=== PATIENT | male | born 1950 | race Caucasian/White ===

== ENCOUNTER 2020-01-19 09:20 | Day surgery (SDC) | payer MEDICARE, BC ==
[2020-01-19] MEDS ORDERED: Midazolam 1 MG/ML 2 ML SDV ONE ×2 (09:22→11:32)
[2020-01-19] MEDS ORDERED: Propofol 200 MG/20 ML SDV ONE ×2 (09:23→11:32)
[2020-01-19] MEDS ORDERED: Lactated Ringers 1,000 ML IV SCH (09:30)
[2020-01-19] MEDS ORDERED: Sodium Chloride 0.9% 10 ML Syringe FLUSH PRN (09:30)
--- NOTE | 2020-01-19 11:28 | PCM.HPR ---
H & P Addendum review - H & P Addendum Review Date of Original H & P: 01/03/20 Date Reviewed: 01/19/20 Time Reviewed: 11:28 Patient was Examined: No Changes
--- NOTE | 2020-01-19 11:49 | PCM.OPNOTE ---
- General Post-Op/Procedure Note Date of Surgery/Procedure: 01/19/20 Operative Procedure(s): EGD with bx Findings: Small HH; Pre Op Diagnosis: HX Lucas's Post-Op Diagnosis: Same Anesthesia Technique: MAC Primary Surgeon: Aydin Kingston Anesthesia Provider: Mercedez Vaughn Pathology: Distal Esophagus EBL in mLs: 1 Complications: None Condition: Good
--- NOTE | 2020-01-19 13:05 | OR ---
Date of Procedure: 01/19/2020 PREOPERATIVE DIAGNOSIS: History of Lucas's esophagus. POSTOPERATIVE DIAGNOSIS: History of Lucas's esophagus. PROCEDURE: EGD with biopsy. ANESTHESIA: IV sedation. PROCEDURE IN DETAIL: Patient was brought to the procedure room, where he was placed on his left side and IV sedation administered. Oral bite block was placed and the upper endoscope advanced into the esophagus under direct vision without difficulty. Vocal cords were viewed and were normal. The scope was advanced to the second portion of the duodenum. Duodenum and pylorus are normal. Antrum and body of the stomach were normal. Retroflexion revealed a loose lower esophageal sphincter and a small 2-cm hiatal hernia. Distal esophagus is slightly irregular, but no obvious signs of Lucas's esophagus. I did take 4 random biopsies from each quadrant approximately 1 cm above the squamocolumnar junction. Air was removed from the stomach, and the scope withdrawn through the remaining esophagus, which appears normal. The patient tolerated the procedure well and returned to recovery in stable condition. The patient will be contacted with the pathology report when it returns. If no concerning features are present, he could wait 5 years until his next upper endoscopy for Lucas's. RAYNE FARRIS MD /[id number]
== END 2020-01-19 12:59 | disposition home or self-care (01) ==
LOC: LL.SDS 09:20
PROVIDERS: ATTEND Surgery
DX: K22.8 Other specified diseases of esophagus (principal); K44.9 Diaphragmatic hernia without obstruction or gangrene; E11.319 Type 2 diabetes mellitus with unspecified diabetic retinopathy without macular edema; E11.22 Type 2 diabetes mellitus with diabetic chronic kidney disease; I12.9 Hypertensive chronic kidney disease with stage 1 through stage 4 chronic kidney disease, or unspecified chronic kidney disease; N18.3 Chronic kidney disease, stage 3 (moderate); E78.00 Pure hypercholesterolemia, unspecified; F32.5 Major depressive disorder, single episode, in full remission; K21.9 Gastro-esophageal reflux disease without esophagitis; Z98.890 Other specified postprocedural states; Z79.82 Long term (current) use of aspirin; Z87.19 Personal history of other diseases of the digestive system; Z79.899 Other long term (current) drug therapy; Z79.84 Long term (current) use of oral hypoglycemic drugs
CPT/HCPCS: 43239; 82962; J2250; J2704; J7120; 00731

== ENCOUNTER 2020-07-16 04:57 | Inpatient (IN) | payer MEDICARE, BC ==
[2020-07-16] MEDS ORDERED: Acetaminophen 325 MG Tab PO ONE (05:44)
--- NOTE | 2020-07-16 05:44 | EDM.PDOC ---
ED HPI GENERAL MEDICAL PROBLEM - General Chief Complaint: General Stated Complaint: weakness Time Seen by Provider: 07/16/20 05:25 Source of Information: Reports: Patient, EMS, Old Records ([facility] chart/EMR). Denies: EMS Notes Reviewed (Not available at time of dictation) History Limitations: Reports: No Limitations - History of Present Illness INITIAL COMMENTS - FREE TEXT/NARRATIVE: The patient was brought to the emergency room via ambulance with youth worker accompaniment with no treatment in route. Patient complains of a 4-5-day history of polydipsia associated with a 3-day history of nonspecific generalized weakness and difficulty emptying his bladder. He did have some fever and chills yesterday evening with temperature not measured and Tylenol at an unknown dose at midnight. Otherwise he denies any gross hematuria, colic, UTI symptoms. The patient denies any chest pain/pressure, heart flutter, dizziness, orthostasis, orthopnea, diaphoresis, paresthesias, recent decreased exercise tolerance, or any other anginal-type symptoms. No recent history of abdominal pain, heartburn, nausea, diarrhea, melena, gross hematochezia, or any food into lerance, including fatty foods, etc.. The patient also denies any recent cough, wheezing, dyspnea, etc.. He denies any known exposure to infection and has been following the COVID-19 CDC guidelines. The patient has not been taking his home Accu-Cheks recently. He denies any specific pain or discomfort. Onset: Gradual, Unknown/Unsure Onset Date: 07/11/20 Duration: Getting Worse Location: Denies: Head, Face, Neck, Chest, Abdomen, Back Quality: Reports: Other (No pain) Improves with: Reports: None Worsens with: Reports: None Associated Symptoms: Reports: Fever/Chills, Weakness. Denies: Confusion, Chest Pain, Cough, Diaphoresis, Headaches, Loss of Appetite, Malaise, Nausea/Vomiting, Shortness of Breath, Syncope Treatments YAM CURER: Reports: Acetaminophen, Other (see below) Other Treatments YAM CURER: Took tylenol around 2400 tonight. - Related Data Allergies Allergy/AdvReac Type Severity Reaction Status Date / Time lisinopril Allergy Swollen Verified 07/16/20 07:03 Tongue Home Meds: Home Meds Aspirin [Adult Low Dose Aspirin EC] 81 mg PO DAILY 01/18/20 [History] Blood Sugar Diagnostic [Blood Glucose Test Strip] 1 each ASDIRECTED 01/18/20 [History] Blood-Glucose Meter [Blood Glucose Monitoring] 1 each ASDIRECTED 01/18/20 [History] Cinnamon Bark [Cinnamon] 500 mg PO BID 01/18/20 [History] FLUoxetine [PROzac] 20 mg PO DAILY 01/18/20 [History] L.acidoph,Paracasei, B.lactis [Probiotic] 1 each PO DAILY 01/18/20 [History] Lancets 1 each ASDIRECTED 01/18/20 [History] Lovastatin [Mevacor] 40 mg PO BEDTIME 01/18/20 [History] Omeprazole 20 mg PO DAILY 01/18/20 [History] metFORMIN [Glucophage] 500 mg PO BIDMEALS 01/18/20 [History] Cetirizine HCl [Zyrtec] 10 mg PO BEDTIME 07/16/20 [History] Glimepiride 2 mg PO BIDMEALS 07/16/20 [History] Losartan [Cozaar] 50 mg PO DAILY 07/16/20 [History] amLODIPine [Norvasc] 5 mg PO DAILY 07/16/20 [History] hydrOXYzine HCL [Atarax] 25 mg PO Q6H PRN 07/16/20 [History] Past Medical History HEENT History: Reports: Allergic Rhinitis, Cataract, Hard of Hearing, Impaired Vision, Otitis Media, Sinusitis, Other (See Below). Denies: Glaucoma, Macular Degeneration, Retinal Detachment Other HEENT History: Allergic rhinitis/sinusitis. Patient wears glasses and has a history of diabetic retinopathy. Mild to moderate bilateral presbycusis with no current therapy. Frequent otitis media as a child with no PE tubes. Cardiovascular History: Reports: Arrhythmia, High Cholesterol, Hypertension, Pacemaker, Other (See Below). Denies: Afib, Aneurysm, Blood Clots/VTE/DVT, CAD, Heart Failure, Heart Murmur, ME, PVD, Syncope Other Cardiovascular History: Third-degree AV block with distant pacemaker as below. Respiratory History: Reports: None, Intubation, Previous. Denies: Asthma, Bronchitis, Recurrent, COPD, Intubation, Difficult, PE, Pneumothorax, Sleep Apnea, TB Gastrointestinal History: Reports: None, GERD, Other (See Below). Denies: Celiac Disease, Cholelithiasis, Chronic Constipation, Chronic Diarrhea, Colon Polyp, Diverticulosis, Fecal Incontinence, Gastritis, GI Bleed, Hepatitis, Inflammatory Bowel Disease, Irritable Bowel Syndrome, Jaundice, Pancreatitis, PUD Other Gastrointestinal History: Barretts esophagus with low grade dysplasia Genitourinary History: Reports: None, BPH. Denies: Acute Renal Failure, Chronic Renal Insuffiency, Diabetic Nephropathy, Renal Calculus, Retention, Urinary, STD, Urinary Incontinence, UTI, Recurrent Musculoskeletal History: Reports: Arthritis, Back Pain, Chronic, Fracture, Neck Pain, Chronic, Osteoarthritis, Other (See Below). Denies: Amputation Other Musculoskeletal History: Diffuse degenerative disc disease. Right ankle fracture in the 1980s. Neurological History: Reports: None. Denies: Cerebral Aneurysms, Concussion, CVA, Headaches, Chronic, Head Trauma, Migraines, MS, Neuropathy, Diabetic, Neuropathy, Peripheral (Any), Parkinson's, Seizure, TIA (MS Parkinson's disease strokes), Vertigo ( dizziness) Psychiatric History: Reports: Addiction, Anxiety, Depression, Other (See Below). Denies: Abuse, Victim of, ADD, ADHD, Psych Hospitalization(s), PTSD, Suicide Attempt, Suicidal Ideation Other Psychiatric History: Patient denies previous addiction despite above record. Endocrine/Metabolic History: Reports: Diabetes, Type II. Denies: Diabetes, Type I, Diabetes Mellitus, Type 3c, Hypothyroidism, IDDM Hematologic History: Denies: Anemia, Blood Transfusion(s), Iron Deficiency Immunologic History: Reports: None. Denies: AIDS, HIV, SLE Oncologic (Cancer) History: Reports: Other (See Below). 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 Dermatologic History: Reports: Other (See Below). Denies: Eczema, Psoriasis Other Dermatologic History: Diabetic left foot ulcer with last debridement on 04/08/2004 - Infectious Disease History Infectious Disease History: Reports: None, Measles. Denies: C-Difficile, Chicken Pox, Helicobacter Pylori, Meningitis, Mononucleosis, MRSA, Mumps, Novel Coronavirus, Pertussis (Whooping Cough), Rheumatic Fever, Rubella, Scarlet Fever , Shingles, TB, VRE - Past Surgical History Head Surgeries/Procedures: Reports: None HEENT Surgical History: Reports: Cataract Surgery, Laser Surgery, Oral Surgery, Other (See Below). Denies: Adenoidectomy, Eye Surgery, Myringotomy w Tube(s), Naso-Sinus Surgery, Tonsillectomy Other HEENT Surgeries/Procedures: Bilateral cataract surgery. YAG treatment of the eyes secondary to diabetic retinopathy. Cardiovascular Surgical History: Reports: Pacer, Other (See Below). Denies: Varicose Other Cardiovascular Surgeries/Procedures: Pacemaker placement in about 2005. Respiratory Surgical History: Reports: None. Denies: Thoracentesis GI Surgical History: Reports: Colonoscopy, EGD, Other (See Below). Denies: Appendectomy, Cholecystectomy, Hernia, Abdominal, Hernia, Inguinal, Hernia Repair/Other, Polypectomy Other GI Surgeries/Procedures: EGD with biopsy on 01/19/2020. Colonoscopy in about 2011. Male Surgical History: Reports: None. Denies: Circumcision, TURP- Transurethral Resection of Prostate, Vasectomy Endocrine Surgical History: Reports: None. Denies: Thyroid Biopsy Neurological Surgical History: Reports: C-Spine, Other (See Below). Denies: Discectomy, Laminectomy, Lumbar Spine, Spinal Fusion, Vertebroplasty Other Neurological Surgeries/Procedures: Bone spur excision from C-spine in the 1980s. Musculoskeletal Surgical History: Denies: Arthroscopic Procedure, Carpal Tunnel, Ganglion Cyst, Joint Replacement, ORIF, Shoulder Surgery Oncologic Surgical History: Reports: None Dermatological Surgical History: Reports: Other (See Below) Other Dermatological Surgeries/Procedures: Excision of unknown type of cancer from his auricles bilaterally. Social & Family History - Family History HEENT: Reports: None. Denies: Glaucoma, Macular Degeneration, Retinal Detachment Cardiac: Reports: CAD, ME, Other (See Below). Denies: Afib, Aneurysm, Arrhythmia, Blood Clots/VTE/DVT, Heart Failure, Hypertension, Syncope Other Cardiac Family History: Father with fatal ME at age 64. Paternal aunt with fatal ME in her 70s. Respiratory: Reports: None. Denies: Asthma, COPD, PE, Sleep Apnea GI: Reports: None, Pancreatitis. Denies: Celiac Disease, Cholelithiasis, Colon Polyps, GERD, GI bleed, Inflammatory Bowel Disease, Irritable Bowel Syndrome, PUD : Reports: None. Denies: Renal Calculus, Renal Disease/Insufficiency OBGYN: Reports: None. Denies: Endometriosis, Recurrent Spontaneous Musculoskeletal: Reports: Arthritis, Osteoporosis, Other (See Below). Denies: Gout, RA, SLE Other Musculoskeletal Family History: Sister with arthritis. Neurological: Reports: None. Denies: Alzheimers Disease, CVA, Migraines, MS, Parkinson's, Seizure, TIA Psychiatric: Reports: None. Denies: Abuse, Victim of, ADD, ADHD, Anxiety, Depression, Psych Hospitalization(s), PTSD, Suicide Attempt Endocrine/Metabolic: Reports: None. Denies: Diabetes, Type I, Diabetes, type II, Diabetes Mellitus, Type 3c, Hypothyroidism Hematologic: Reports: None. Denies: Anemia, SLE Immunologic: Reports: None. Denies: AIDS, SLE Dermatologic: Reports: None. Denies: Eczema, Psoriasis Oncologic: Reports: Hodgkin's Lymphoma, Other (See Below). Denies: Lymphoma, Non-Hodgkin's Lymphoma, Prostate, Skin Other Oncologic Family History: Paternal uncle with fatal Hodgkin's disease. Brother with lung cancer with history of tobacco use. Brother with unknown type of abdominal cancer. - Tobacco Use Tobacco Use Status *Q: Never Tobacco User Tobacco Use Within Last Twelve Months: No Used Tobacco, but Quit: No Smoking Cessation Information Provided To Patient: No Second Hand Smoke Exposure: No Second Hand Smoke Education Provided: No - Caffeine Use Caffeine Use: Reports: Coffee (2 cups/day), Soda (2 sodas per week). Denies: Energy Drinks, Tea - Alcohol Use Alcohol Use History: Yes Days Per Week of Alcohol Use: 5 Number of Drinks Per Day: 2 Number of Drinks Per Day Comment: Usually beer. No previous DWIs, problems with alcohol abuse, etc. Total Drinks Per Week: 10 Alcohol Use in Last Twelve Months: Yes - Recreational Drug Use Recreational Drug Use: No Drug Use in Last 12 Months: No Recreational Drug Type: Denies: Amphetamines (Speed), Heroin, Inhalants (Glues, Solvents, Aerosols), Marijuana/Hashish, Methamphetamine, Morphine, Oxycodone - Living Situation & Occupation Living situation: Reports: (1979, 2 children), with Family () Occupation: Retired (Retired materials intern at age 64) ED ROS GENERAL - Review of Systems Review Of Systems: Comprehensive ROS is negative, except as noted in HPI. ED EXAM, GENERAL - Physical Exam Exam: See Below Exam Limited By: No Limitations General Appearance: Alert, WD/WN, No Apparent Distress Eye Exam: Bilateral Eye: EOMI, Normal Inspection (No nystagmus or vertigo. Patient wears glasses.), PERRL Ears: Normal External Exam, Normal Canal, Normal TMs, Hearing Loss (Mild to moderate bilateral presbycusis) Nose: Normal Inspection, Normal Mucosa, No Blood Throat/Mouth: Normal Inspection, Normal Lips, Normal Teeth (Multiple missing teeth with no acute caries), Normal Gums, Normal Oropharynx, Normal Voice, No Airway Compromise Head: Atraumatic, Normocephalic. No: Facial Swelling, Facial Tenderness, Sinus Tenderness Neck: Supple, Non-Tender, Full Range of Motion, Carotid Bruit (Mild bilateral carotid bruits). No: Lymphadenopathy (L), Lymphadenopathy (R), Thyromegaly Respiratory/Chest: No Respiratory Distress, Lungs Clear, Normal Breath Sounds, No Accessory Muscle Use, Chest Non-Tender. No: Pleural Rub, Retractions Cardiovascular: Normal Peripheral Pulses, Regular Rate, Rhythm, No Edema, No Gallop, No JVD, No Murmur, No Rub. No: Gallop/S3, Gallop/S4, Friction Rub Peripheral Pulses: 2+: Radial (L), Radial (R), Dorsalis Pedis (L), Dorsalis Pedis (R) GI/Abdominal: Normal Bowel Sounds, Soft, Non-Tender, No Organomegaly, No Distention, No Abnormal Bruit, No Mass. No: Guarding (Male) Exam: Deferred Rectal (Males) Exam: Normal Rectal Tone, BPH (Mild), Heme - Stool, Hemorrhoids. No: Black Stool, Bloody Stool, Fecal Impaction, Prostate Nodule (Grade 2 internal/external), Tenderness (No ductal space tenderness) Back Exam: Normal Inspection, Full Range of Motion. No: CVA Tenderness (L), CVA Tenderness (R), Muscle Spasm Extremities: Normal Inspection, Normal Range of Motion, Non-Tender, No Pedal Edema, Normal Capillary Refill. No: Nirali's Sign Neurological: Alert, Oriented, CN II-XII Intact, Normal Cognition, Normal Gait, Normal Reflexes (Negative Babinski's), No Motor/Sensory Deficits Psychiatric: Normal Affect, Normal Mood Skin Exam: Warm, Dry, Intact, Normal Color, No Rash. No: Diaphoretic Lymphatic: No Adenopathy Course - Vital Signs Last Recorded V/S: Last Vital Signs Temp 37.8 C 07/16/20 05:15 Pulse 77 07/16/20 06:55 Resp 18 07/16/20 06:55 BP 130/56 L 07/16/20 06:55 Pulse Ox 98 07/16/20 06:55 Vital Signs - 24 hr 07/16/20 07/16/20 07/16/20 05:03 05:15 05:45 Temperature [ 37.7 C 37.8 C Temporal] Pulse, 90 90 88 Peripheral [ Pulse Oximetry] Respiratory 16 18 18 Rate Blood Pressure 142/58 H [Left Upper Arm ] Blood Pressure 147/66 H 162/51 H [Right Upper Arm] O2 Sat by Pulse 99 99 99 Oximetry 07/16/20 07/16/20 07/16/20 06:10 06:25 06:40 Temperature [ Temporal] Pulse, 82 86 83 Peripheral [ Pulse Oximetry] Respiratory 18 16 16 Rate Blood Pressure 116/96 H 139/65 138/57 L [Left Upper Arm ] Blood Pressure [Right Upper Arm] O2 Sat by Pulse 99 99 98 Oximetry 07/16/20 07/16/20 07/16/20 06:55 07:40 08:10 Temperature [ 36.8 C Temporal] Pulse, 77 78 79 Peripheral [ Pulse Oximetry] Respiratory 18 20 18 Rate Blood Pressure 130/56 L 137/62 132/56 L [Left Upper Arm ] Blood Pressure [Right Upper Arm] O2 Sat by Pulse 98 99 100 Oximetry - Orders/Labs/Meds Orders: Active Orders 24 hr Category Date Time Status Cardiac Monitoring [RC] . DIRECTED Care 07/16/20 06:03 Active Cardiac Monitoring [RC] CONTINUOUS Care 07/16/20 05:44 Active Communication Order [RC] ROUTINE Care 07/16/20 05:44 Active Oxygen Therapy, ED [RC] PRN Care 07/16/20 05:44 Active Peripheral IV Care [RC] . DIRECTED Care 07/16/20 05:45 Active Pulse Oximetry [RC] CONTINUOUS Care 07/16/20 05:44 Active Up With Assistance [RC] ASDIRECTED Care 07/16/20 05:44 Active Nothing Per Oral Diet [DIET] Diet 07/16/20 Breakfast Active Chest 1V Frontal [CR] Stat Exams 07/16/20 05:44 Taken Chest PE [Ang Chest] [CT] Stat Exams 07/16/20 06:29 Taken CORONAVIRUS COVID-19 RACHEAL [MOLEC] Stat Lab 07/16/20 05:30 Received CULTURE BLOOD [BC] Stat Lab 07/16/20 05:52 Received CULTURE BLOOD [BC] Stat Lab 07/16/20 06:00 Received CULTURE URINE [RM] Routine Lab 07/16/20 05:44 Ordered Sodium Chloride 0.9% [Saline Flush] Med 07/16/20 05:44 Active 10 ml FLUSH ASDIRECTED PRN Blood Culture x2 Reflex Set [OM.PC] Stat Oth 07/16/20 05:44 Ordered Isolation [COMM] Routine Oth 07/16/20 05:45 Active Obtain Past Medical Record [OM.PC] Stat Oth 07/16/20 05:44 Active Peripheral IV Insertion Adult [OM.PC] Stat Oth 07/16/20 05:44 Ordered Resuscitation Status Routine Resus Stat 07/16/20 05:44 Ordered Medication Orders Sodium Chloride (Saline Flush) 10 ml FLUSH ASDIRECTED PRN PRN Reason: Keep Vein Open Last Admin: 07/16/20 08:16 Dose: 10 ml Documented by: LIEN Labs: Laboratory Tests 07/16/20 07/16/20 07/16/20 Range/Units 05:52 05:52 05:52 WBC 11.3 H (4.0-10.2) K/uL RBC 2.80 L (4.33-5.41) M/uL Hgb 8.3 L (13.1-16.8) g/dL Hct 24.4 L* (39.0-49.0) % MCV 87.1 (84.0-98.0) fL MCH 29.6 (28.2-33.3) pg MCHC 34.0 (31.7-36.0) g/dL RDW 13.1 (11.2-14.1) % Plt Count 317 (150-350) K/uL Neut % (Auto) 91.9 H (45.0-80.0) % Lymph % (Auto) 2.7 L (10.0-50.0) % [place] % (Auto) 5.2 (2.0-14.0) % Eos % (Auto) 0.0 (0.0-5.0) % Baso % (Auto) 0.2 (0.0-2.0) % Neut # (Auto) 10.36 H (1.40-7.00) K/uL Lymph # (Auto) 0.30 L (0.50-3.50) K/uL [place] # (Auto) 0.58 (0.00-1.00) K/uL Eos # (Auto) 0.00 (0.00-0.50) K/uL Baso # (Auto) 0.02 (0.00-0.20) K/uL PT (9.5-12.0) SEC INR APTT (24.5-32.8) SEC D-Dimer, Quantitative 2020 H (0-400) ng/mL Sodium 124 L* (136-145) mmol/L Potassium 4.1 (3.5-5.1) mmol/L Chloride 88 L (98-107) mmol/L Carbon Dioxide 21.0 (21.0-32.0) mmol/L BUN 21 H (7-18) mg/dL Creatinine 1.51 H (0.51-1.17) mg/dL Est Cr Clr Drug Dosing 45.66 mL/min Estimated GFR (MDRD) 46 mL/min Glucose 358 H (74-106) mg/dL Lactic Acid (0.4-2.0) mmol/L Calcium 8.3 L (8.5-10.1) mg/dL Magnesium 1.2 L (1.8-2.4) mg/dL Total Bilirubin 0.8 (0.2-1.0) mg/dL AST 20 (15-37) U/L ALT 28 (12-78) U/L Alkaline Phosphatase 75 (46-116) IU/L Total Protein 6.9 (6.4-8.2) g/dL Albumin 2.5 L (3.4-5.0) g/dL Specimen Type Urine Color Urine Appearance Urine pH (5.0-9.0) Ur Specific [place] (1.005-1.030) Urine Protein (NEGATIVE) mg/dL Urine Glucose (UA) (NEGATIVE) mg/dL Urine Ketones (NEGATIVE) mg/dL Urine Occult Blood (NEGATIVE) Urine Nitrite (NEGATIVE) Urine Bilirubin (NEGATIVE) Urine Urobilinogen (0.2-1.0) E.U./dL Ur Leukocyte Esterase (NEGATIVE) Urine RBC /HPF Urine WBC /HPF Urine Bacteria (NONE TO FEW) /HPF 07/16/20 07/16/20 07/16/20 Range/Units 05:52 05:56 07:45 WBC (4.0-10.2) K/uL RBC (4.33-5.41) M/uL Hgb (13.1-16.8) g/dL Hct (39.0-49.0) % MCV (84.0-98.0) fL MCH (28.2-33.3) pg MCHC (31.7-36.0) g/dL RDW (11.2-14.1) % Plt Count (150-350) K/uL Neut % (Auto) (45.0-80.0) % Lymph % (Auto) (10.0-50.0) % [place] % (Auto) (2.0-14.0) % Eos % (Auto) (0.0-5.0) % Baso % (Auto) (0.0-2.0) % Neut # (Auto) (1.40-7.00) K/uL Lymph # (Auto) (0.50-3.50) K/uL [place] # (Auto) (0.00-1.00) K/uL Eos # (Auto) (0.00-0.50) K/uL Baso # (Auto) (0.00-0.20) K/uL PT 13.5 H (9.5-12.0) SEC INR 1.4 APTT 36.8 H (24.5-32.8) SEC D-Dimer, Quantitative (0-400) ng/mL Sodium (136-145) mmol/L Potassium (3.5-5.1) mmol/L Chloride (98-107) mmol/L Carbon Dioxide (21.0-32.0) mmol/L BUN (7-18) mg/dL Creatinine (0.51-1.17) mg/dL Est Cr Clr Drug Dosing mL/min Estimated GFR (MDRD) mL/min Glucose (74-106) mg/dL Lactic Acid 1.4 (0.4-2.0) mmol/L Calcium (8.5-10.1) mg/dL Magnesium (1.8-2.4) mg/dL Total Bilirubin (0.2-1.0) mg/dL AST (15-37) U/L ALT (12-78) U/L Alkaline Phosphatase (46-116) IU/L Total Protein (6.4-8.2) g/dL Albumin (3.4-5.0) g/dL Specimen Type Urincc Urine Color Yellow Urine Appearance Cloudy Urine pH 5.5 (5.0-9.0) Ur Specific [place] 1.015 (1.005-1.030) Urine Protein 100 H (NEGATIVE) mg/dL Urine Glucose (UA) 250 H (NEGATIVE) mg/dL Urine Ketones Negative (NEGATIVE) mg/dL Urine Occult Blood Moderate H (NEGATIVE) Urine Nitrite Negative (NEGATIVE) Urine Bilirubin Negative (NEGATIVE) Urine Urobilinogen 0.2 (0.2-1.0) E.U./dL Ur Leukocyte Esterase Moderate H (NEGATIVE) Urine RBC 0-5 /HPF Urine WBC 50-75 H /HPF Urine Bacteria Many H (NONE TO FEW) /HPF Blood cultures x2 were collected Urine specimen set up for culture and sensitivity COVID-19 rapid test collected with results pending Microbiology 07/16/20 06:38 Stool Occult Blood (TALIA) - Final Stool / Feces NEGATIVE OCCULT BLOOD REFERENCE RANGE: NEGATIVE 07/16/20 05:30 Influenza Type A Antigen Screen - Final Nasal, Unspecified NEGATIVE INFLUENZA A VIRUS AG REFERENCE RANGE: NEGATIVE Influenza Type B Antigen Screen - Final NEGATIVE INFLUENZA B VIRUS AG REFERENCE RANGE: NEGATIVE Meds: Medications Generic Name Dose Route Start Last Admin Trade Name Freq PRN Reason Stop Dose Admin Sodium Chloride 10 ml 07/16/20 05:44 07/16/20 08:16 Saline Flush FLUSH 10 ml ASDIRECTED PRN Administration Keep Vein Open Discontinued Medications Generic Name Dose Route Start Last Admin Trade Name Freq PRN Reason Stop Dose Admin Acetaminophen 650 mg 07/16/20 05:44 07/16/20 06:07 Tylenol PO 07/16/20 05:45 650 mg ONETIME ONE Administration Famotidine 40 mg 07/16/20 06:14 07/16/20 06:23 Pepcid IVPUSH 07/16/20 06:15 40 mg ONETIME ONE Administration Lactated Ringer's 1,000 mls @ 999 mls/hr 07/16/20 06:03 07/16/20 06:04 Ringers, Lactated IV 07/16/20 07:03 999 mls/hr .BOLUS ONE Administration Ceftriaxone Sodium 1 gm/ 100 mls @ 200 mls/hr 07/16/20 06:59 07/16/20 07:10 Sodium Chloride IV 07/16/20 07:28 200 mls/hr ONETIME ONE Administration Iopamidol Confirm 07/16/20 06:56 Isovue-370 (76%) Administered 07/16/20 06:57 Dose 100 ml .ROUTE .STK-MED ONE Pantoprazole Sodium 40 mg 07/16/20 06:14 07/16/20 06:23 Protonix Iv IVPUSH 07/16/20 06:15 40 mg ONETIME ONE Administration - Radiology Interpretation Free Text/Narrative:: bus monitor shows almost complete paced rhythm with average heart rate in the 80s to 90s with occasional heart rate in the 70s. Very occasional independent rhythm. Chest x-ray, portable, showed evidence of a pacemaker in the left upper chest region with mild prominence of the proximal aortic arch and mild aortic valve calcification with no evidence of cardiomegaly, CHF, pulmonary infiltrates, COPD, pneumothorax, etc. Telephone consultation at 7:52 AM this morning with the radiology department at [facility]. Preliminary verbal report of CTA of the chest using PE protocol was negative for PE, however incidental finding of probable right- sided pyelonephritis and additional subacute L1 vertebral body compression fracture. Subsequent written report confirmed the above findings. 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 use Diabetes mellitus complication status: with ophthalmic complications Diabetes mellitus complication detail: with diabetic retinopathy Diabetic retinopathy severity: with unspecified retinopathy severity Diabetes mellitus macular edema: without macular edema Laterality: unspecified laterality Qualified Code(s): E11.319 - Type 2 diabetes mellitus with unspecified diabetic retinopathy without macular edema Hypertension Qualifiers: Hypertension type: essential hypertension Qualified Code(s): I10 - Essential (primary) hypertension Hyperlipidemia Qualifiers: Hyperlipidemia type: unspecified Qualified Code(s): E78.5 - Hyperlipidemia, unspecified - Discharge Information *PRESCRIPTION DRUG MONITORING PROGRAM REVIEWED*: Not Applicable *COPY OF PRESCRIPTION DRUG MONITORING REPORT IN PATIENT KARAN: Not Applicable Referrals: Melody Mack PA-C [Primary Care Provider] - Forms: ED Department Discharge Care Plan Goals: See plan Sepsis Event Note (ED) - Evaluation Sepsis Screening Result: No Definite Risk - Focused Exam Vital Signs: Vital Signs Temp Pulse Resp BP BP Pulse Ox 07/16/20 06:55 77 18 130/56 L 98 07/16/20 06:40 83 16 138/57 L 98 07/16/20 06:25 86 16 139/65 99 07/16/20 06:10 82 18 116/96 H 99 07/16/20 05:45 88 18 162/51 H 99 07/16/20 05:15 37.8 C 90 18 142/58 H 99 07/16/20 05:03 37.7 C 90 16 147/66 H 99 - Problem List & Annotations (1) Pyelonephritis SNOMED Code(s): 17359457 Code(s): N12 - TUBULO-INTERSTITIAL NEPHRITIS, NOT SPCF ACUTE OR CHRONIC Status: Acute Priority: High Onset Date: 07/16/20 Annotation/Comment:: Right-sided pyelonephritis. IV Rocephin given in the emergency room. Urine specimen has been set up for culture and sensitivity. Note history of mild BPH, including by exam today. Despite history as above patient did urinate prior to arrival to the emergency room with initial bladder ultrasound showing 185 cc of urine with subsequent bladder ultrasound after urination in the emergency showing only 10 cc. Therefore no significant urinary retention. Note decompensated AODM secondary to this infection with high fever, etc.. Mild leukocytosis with normal lactic acid level and no clinical evidence of sepsis. Continue IV Rocephin therapy after admission. (2) D-dimer, elevated SNOMED Code(s): 509794708 Code(s): R79.89 - OTHER SPECIFIED ABNORMAL FINDINGS OF BLOOD CHEMISTRY Status: Acute Priority: High Onset Date: 07/16/20 Annotation/Comment:: Note CTA of the chest results and significant anemia as above. Venous Doppler studies of the lower extremities to be conducted later today. No clinical evidence of DVT or PE. Delay Lovenox therapy for now secondary to moderate anemia as above. D-dimer elevation possibly secondary to current pyelonephritis. (3) Anemia SNOMED Code(s): 187624969 Code(s): D64.9 - ANEMIA, UNSPECIFIED Status: Acute Priority: High Onset Date: 07/16/20 Annotation/Comment:: Moderate anemia of unknown etiology with diabetic nephropathy a possible component. Iron studies, vitamin B12 level, etc. to be conducted with in the a.m. 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 High-dose IV Pepcid and IV Protonix were given as GI prophylaxis. Consider repeat EGD and colonoscopy depending on his clinical course. Note negative Hemoccult in the emergency room. Qualifiers: Anemia type: unspecified type Qualified Code(s): D64.9 - Anemia, unspecified (4) Diabetes mellitus SNOMED Code(s): 33390846 Code(s): E11.9 - TYPE 2 DIABETES MELLITUS WITHOUT COMPLICATIONS Status: Chronic Priority: Medium Annotation/Comment:: Note significantly elevated Accu-Chek by the youth worker of 417 mg percent prior to arrival. The patient has not been taking his Accu-Cheks at home. No previous history of diabetic retinopathy. 1 L lactated Ringer's given in the emergency room. Initiate Humalog sliding scale with possible beginning IDDM. Glycosylated hemoglobin and lipid panel in the a.m. Qualifiers: Diabetes mellitus type: type 2 Diabetes mellitus intermodal truck driver insulin use: without residential use Diabetes mellitus complication status: with ophthalmic complications Diabetes mellitus complication detail: with diabetic retinopathy Diabetic retinopathy severity: with unspecified retinopathy severity Diabetes mellitus macular edema: without macular edema Laterality: unspecified laterality Qualified Code(s): E11.319 - Type 2 diabetes mellitus with unspecified diabetic retinopathy without macular edema (5) Hyponatremia SNOMED Code(s): 60527432 Code(s): E87.1 - HYPO-OSMOLALITY AND HYPONATREMIA Status: Acute Priority: High Onset Date: 07/16/20 Annotation/Comment:: Unknown etiology. 3% sodium chloride infusion x1 with resumption of IV fluids thereafter. No evidence of CHF, etc. (6) Weakness SNOMED Code(s): 07567919 Code(s): R53.1 - WEAKNESS Status: Acute Priority: High Onset Date: ~07/15/20 Annotation/Comment:: Nonspecific generalized weakness possibly secondary to his current infection. No gross neurological deficits. Observe for now. Strict fall precautions. (7) Hyperlipidemia SNOMED Code(s): 51880130 Code(s): E78.5 - HYPERLIPIDEMIA, UNSPECIFIED Status: Chronic Priority: Medium Annotation/Comment:: Currently under therapy. Lipid panel in the a.m. Qualifiers: Hyperlipidemia type: unspecified Qualified Code(s): E78.5 - Hyperlipidemia, unspecified (8) Hypertension SNOMED Code(s): 68499996 Code(s): I10 - ESSENTIAL (PRIMARY) HYPERTENSION Status: Chronic Priority: Medium Annotation/Comment:: Blood pressures under good control in the emergency room. Qualifiers: Hypertension type: essential hypertension Qualified Code(s): I10 - Essential (primary) hypertension (9) Hypoalbuminemia SNOMED Code(s): 293002821 Code(s): E88.09 - OTH DISORDERS OF PLASMA-PROTEIN METABOLISM, NEC Status: Acute Priority: Medium Onset Date: 07/16/20 Annotation/Comment:: Observe for now. Consider high-protein Glucerna supplements. (10) Hypocalcemia SNOMED Code(s): 4411818 Code(s): E83.51 - HYPOCALCEMIA Status: Acute Priority: Medium Onset Date: 07/16/20 Annotation/Comment:: Observe for now (11) Hypomagnesemia SNOMED Code(s): 387961407 Code(s): E83.42 - HYPOMAGNESEMIA Status: Acute Priority: Medium Annotation/Comment:: Initiate magnesium sulfate IV therapy on admission with 4 g IV at that time and subsequent oral magnesium oxide therapy. (12) Compression fracture of L1 vertebra SNOMED Code(s): 453758995 Code(s): S32.010A - WEDGE COMPRESSION FRACTURE OF FIRST LUMBAR VERTEBRA, INIT Status: Acute Priority: Medium Annotation/Comment:: Incidental finding as above. No history of recent fall, injury, or current complaints. Likely subacute in nature based on CTA report as above. Observe for now. Qualifiers: Encounter type: initial encounter Qualified Code(s): S32.010A - Wedge compression fracture of first lumbar vertebra, initial encounter for closed fracture (13) Diabetic nephropathy Status: Acute Priority: Medium Onset Date: 07/16/20 Annotation/Comment:: Newly diagnosed. Continue to observe renal function closely. Patient is already on an angiotensin II receptor rosa maria. Qualifiers: Diabetes mellitus type: type 2 Qualified Code(s): E11.21 - Type 2 diabetes mellitus with diabetic nephropathy (14) Osteoarthritis SNOMED Code(s): 653217719 Code(s): M19.90 - UNSPECIFIED OSTEOARTHRITIS, UNSPECIFIED SITE Status: Chronic Priority: Medium Annotation/Comment:: Otherwise stable by history. Qualifiers: Osteoarthritis location: multiple joints Osteoarthritis type: primary Qualified Code(s): M89.49 - Other hypertrophic osteoarthropathy, multiple sites - Problem List Review Problem List Initiated/Reviewed/Updated: Yes - My Orders Last 24 Hours: My Active Orders 07/16/20 05:30 CORONAVIRUS COVID-19 RACHEAL [MOLEC] Stat 07/16/20 05:44 Cardiac Monitoring [RC] CONTINUOUS Communication Order [RC] ROUTINE Oxygen Therapy, ED [RC] PRN Pulse Oximetry [RC] CONTINUOUS Up With Assistance [RC] ASDIRECTED Chest 1V Frontal [CR] Stat CULTURE URINE [RM] Routine Sodium Chloride 0.9% [Saline Flush] 10 ml FLUSH ASDIRECTED PRN Blood Culture x2 Reflex Set [OM.PC] Stat Obtain Past Medical Record [OM.PC] Stat Peripheral IV Insertion Adult [OM.PC] Stat Resuscitation Status Routine 07/16/20 05:45 Peripheral IV Care [RC] . DIRECTED Isolation [COMM] Routine 07/16/20 05:52 CULTURE BLOOD [BC] Stat 07/16/20 06:00 CULTURE BLOOD [BC] Stat 07/16/20 06:03 Cardiac Monitoring [RC] . DIRECTED 07/16/20 06:29 Chest PE [Ang Chest] [CT] Stat 07/16/20 Breakfast Nothing Per Oral Diet [DIET] - Assessment/Plan Admission H&P: Please use this note as an admission H&P Last 24 Hours: My Active Orders 07/16/20 05:30 CORONAVIRUS COVID-19 RACHEAL [MOLEC] Stat 07/16/20 05:44 Cardiac Monitoring [RC] CONTINUOUS Communication Order [RC] ROUTINE Oxygen Therapy, ED [RC] PRN Pulse Oximetry [RC] CONTINUOUS Up With Assistance [RC] ASDIRECTED Chest 1V Frontal [CR] Stat CULTURE URINE [RM] Routine Sodium Chloride 0.9% [Saline Flush] 10 ml FLUSH ASDIRECTED PRN Blood Culture x2 Reflex Set [OM.PC] Stat Obtain Past Medical Record [OM.PC] Stat Peripheral IV Insertion Adult [OM.PC] Stat Resuscitation Status Routine 07/16/20 05:45 Peripheral IV Care [RC] . DIRECTED Isolation [COMM] Routine 07/16/20 05:52 CULTURE BLOOD [BC] Stat 07/16/20 06:00 CULTURE BLOOD [BC] Stat 07/16/20 06:03 Cardiac Monitoring [RC] . DIRECTED 07/16/20 06:29 Chest PE [Ang Chest] [CT] Stat 07/16/20 Breakfast Nothing Per Oral Diet [DIET] Assessment:: As above Plan: As above. Extensive precautions were given to the patient, who is in agreement with the treatment plan. The patient will require about 3-4 days of inpatient/acute care secondary to multiple health problems as above. Jaxon hernandez physician assumes care in the a.m.
[2020-07-16] MEDS ORDERED: Lactated Ringers 1,000 ML IV ONE (06:03)
[2020-07-16] MEDS ORDERED: Famotidine 20 MG/2 ML SDV IVPUSH ONE (06:14)
[2020-07-16] MEDS ORDERED: Pantoprazole 40 MG Vial IVPUSH ONE (06:14)
[2020-07-16 06:43] LABS: PTT,PARTIAL THROMBOPLSTIN TIME 36.8 SEC (24.5-32.8)
[2020-07-16] MEDS ORDERED: Iopamidol 755 Mg/ML 100 ML Bottle IVPUSH STA (06:54)
[2020-07-16] MEDS ORDERED: Iopamidol 755 Mg/ML 100 ML Bottle ONE (06:56)
[2020-07-16] MEDS ORDERED: cefTRIAXone 1 GM in Sodium Chloride 0.9% 100 ML IV ONE (06:59)
[2020-07-16] MEDS: Sodium Chloride 0.9% 10 ML Syringe FLUSH PRN ×2 (08:16→21:25)
[2020-07-16] MEDS ORDERED: Glucagon,Human Recombinant 1 MG Vial IM PRN ×2 (10:11→12:19)
[2020-07-16] MEDS ORDERED: 50% Dextrose in Water 50 ML Syringe IV PRN ×2 (10:11→12:19)
[2020-07-16] MEDS ORDERED: Magnesium Sulfate/Water 4 GM in Premix Bag 1 BAG IV ONE (10:15)
[2020-07-16] MEDS ORDERED: Sodium Chloride 3% 500 ML IV SCH (10:15)
[2020-07-16] MEDS ORDERED: Acetaminophen 325 MG Tab PO PRN (11:00)
[2020-07-16] MEDS ORDERED: Ondansetron 4 MG/2 ML SDV IVPUSH PRN (11:00)
[2020-07-16] MEDS ORDERED: hydrOXYzine HCl 25 MG Tab PO PRN (11:00)
[2020-07-16] MEDS: Insulin Lispro 100 Units/ML 3 ML Vial SUBCUT SCH ×3 (12:41→20:29)
[2020-07-16] MEDS ORDERED: Insulin Lispro 100 Units/ML 3 ML Vial SUBCUT SCH (17:30)
[2020-07-16] MEDS: Glimepiride 2 MG Tab PO SCH (17:52)
[2020-07-16] MEDS ORDERED: Temazepam 15 MG Cap PO PRN (20:00)
[2020-07-16] MEDS: atorvaSTATin 10 MG Tab PO SCH (20:23)
[2020-07-16] MEDS: Cetirizine 10 MG Tab PO SCH (20:23)
[2020-07-16] MEDS: Sodium Chloride 0.9% 10 ML Syringe FLUSH SCH (20:24)
[2020-07-16] MEDS: cefTRIAXone 1 GM in Sodium Chloride 0.9% 100 ML IV SCH (20:24)
[2020-07-16] MEDS: Pantoprazole 40 MG Vial IVPUSH SCH (20:24)
[2020-07-17] MEDS: cefTRIAXone 1 GM in Sodium Chloride 0.9% 100 ML IV SCH ×2 (08:44→20:07)
[2020-07-17] MEDS: Pantoprazole 40 MG Vial IVPUSH SCH ×2 (08:44→20:07)
[2020-07-17] MEDS: Famotidine 20 MG/2 ML SDV IVPUSH SCH ×2 (08:45→20:26)
[2020-07-17] MEDS: Sodium Chloride 0.9% 10 ML Syringe FLUSH SCH ×2 (08:48→20:07)
[2020-07-17] MEDS: Sodium Chloride 0.9% 10 ML Syringe FLUSH PRN (08:48)
[2020-07-17] MEDS: FLUoxetine 20 MG Cap PO SCH (08:49)
[2020-07-17] MEDS: Magnesium Oxide 400 MG Tab PO SCH ×2 (08:49→17:40)
[2020-07-17] MEDS: Lactobacillus Rhamnosus GG (Probiotic) Cap PO SCH (08:49)
[2020-07-17] MEDS: amLODIPine 5 MG Tab PO SCH (08:49)
[2020-07-17] MEDS: Aspirin 81 MG Tab.EC PO SCH (08:49)
[2020-07-17] MEDS: Glimepiride 2 MG Tab PO SCH ×2 (08:49→17:40)
[2020-07-17] MEDS: Losartan 50 MG Tab PO SCH (08:50)
[2020-07-17] MEDS: Insulin Lispro 100 Units/ML 3 ML Vial SUBCUT SCH ×4 (08:50→20:11)
--- NOTE | 2020-07-17 17:59 | PCM.PN ---
- General Info Date of Service: 07/17/20 Admission Dx/Problem (Free Text): Patient admitted for treatment of pyelonephritis Subjective Update: Patient reports that he feels much improved today. More energy. Able to ambulate. Good appetite Functional Status: Reports: Pain Controlled, Tolerating Diet, Ambulating, Urinating. Denies: New Symptoms - Review of Systems General: Reports: Weakness (improved), Fatigue (improved), Appetite (improved). Denies: Fever, Malaise, Chills HEENT: Reports: No Symptoms Pulmonary: Reports: No Symptoms Cardiovascular: Reports: No Symptoms Gastrointestinal: Reports: No Symptoms. Denies: Abdominal Pain, Nausea, Vomiting Genitourinary: Denies: Dysuria, Burning, Pain, Hematuria, Flank Pain Musculoskeletal: Reports: Other (no acute changes from baseline) Skin: Reports: No Symptoms Neurological: Reports: No Symptoms. Denies: Headache Psychiatric: Reports: No Symptoms - Patient Data Vitals - Most Recent: Last Vital Signs Temp 35.6 C L 07/17/20 16:00 Pulse 82 07/17/20 16:00 Resp 16 07/17/20 12:00 BP 112/61 07/17/20 16:00 Pulse Ox 97 07/17/20 12:00 Weight - Most Recent: 79.107 kg I&O - Last 24 Hours: Intake & Output 07/17/20 07/17/20 07/17/20 06:59 14:59 22:59 Intake Total 720 Balance 720 Lab Results Last 24 Hours: Laboratory Results - last 24 hr 07/16/20 07/17/20 07/17/20 Range/Units 20:23 07:12 07:12 WBC 9.6 (4.0-10.2) K/uL RBC 2.71 L (4.33-5.41) M/uL Hgb 7.9 L (13.1-16.8) g/dL Hct 23.9 L* (39.0-49.0) % MCV 88.2 (84.0-98.0) fL MCH 29.2 (28.2-33.3) pg MCHC 33.1 (31.7-36.0) g/dL RDW 13.4 (11.2-14.1) % Plt Count 300 (150-350) K/uL Neut % (Auto) 88.9 H (45.0-80.0) % Lymph % (Auto) 4.1 L (10.0-50.0) % Cedar % (Auto) 6.5 (2.0-14.0) % Eos % (Auto) 0.3 (0.0-5.0) % Baso % (Auto) 0.2 (0.0-2.0) % Neut # (Auto) 8.52 H (1.40-7.00) K/uL Lymph # (Auto) 0.39 L (0.50-3.50) K/uL Cedar # (Auto) 0.62 (0.00-1.00) K/uL Eos # (Auto) 0.03 (0.00-0.50) K/uL Baso # (Auto) 0.02 (0.00-0.20) K/uL Sodium 132 L (136-145) mmol/L Potassium 4.1 (3.5-5.1) mmol/L Chloride 99 (98-107) mmol/L Carbon Dioxide 22.0 (21.0-32.0) mmol/L BUN 22 H (7-18) mg/dL Creatinine 1.67 H (0.51-1.17) mg/dL Est Cr Clr Drug Dosing 41.28 mL/min Estimated GFR (MDRD) 41 mL/min Glucose 146 H (74-106) mg/dL POC Glucose 275 H* (65-110) mg/dl Calcium 8.2 L (8.5-10.1) mg/dL Magnesium 2.2 (1.8-2.4) mg/dL Total Bilirubin 0.3 (0.2-1.0) mg/dL AST 27 (15-37) U/L ALT 25 (12-78) U/L Alkaline Phosphatase 66 (46-116) IU/L Total Protein 6.1 L (6.4-8.2) g/dL Albumin 2.1 L (3.4-5.0) g/dL 07/17/20 07/17/20 07/17/20 Range/Units 07:42 11:18 17:05 WBC (4.0-10.2) K/uL RBC (4.33-5.41) M/uL Hgb (13.1-16.8) g/dL Hct (39.0-49.0) % MCV (84.0-98.0) fL MCH (28.2-33.3) pg MCHC (31.7-36.0) g/dL RDW (11.2-14.1) % Plt Count (150-350) K/uL Neut % (Auto) (45.0-80.0) % Lymph % (Auto) (10.0-50.0) % Cedar % (Auto) (2.0-14.0) % Eos % (Auto) (0.0-5.0) % Baso % (Auto) (0.0-2.0) % Neut # (Auto) (1.40-7.00) K/uL Lymph # (Auto) (0.50-3.50) K/uL Cedar # (Auto) (0.00-1.00) K/uL Eos # (Auto) (0.00-0.50) K/uL Baso # (Auto) (0.00-0.20) K/uL Sodium (136-145) mmol/L Potassium (3.5-5.1) mmol/L Chloride (98-107) mmol/L Carbon Dioxide (21.0-32.0) mmol/L BUN (7-18) mg/dL Creatinine (0.51-1.17) mg/dL Est Cr Clr Drug Dosing mL/min Estimated GFR (MDRD) mL/min Glucose (74-106) mg/dL POC Glucose 145 H 241 H 356 H* (65-110) mg/dl Calcium (8.5-10.1) mg/dL Magnesium (1.8-2.4) mg/dL Total Bilirubin (0.2-1.0) mg/dL AST (15-37) U/L ALT (12-78) U/L Alkaline Phosphatase (46-116) IU/L Total Protein (6.4-8.2) g/dL Albumin (3.4-5.0) g/dL Jean-Pierre Results Last 24 Hours: Microbiology 07/16/20 05:52 Aerobic Blood Culture - Preliminary Blood - Venous Gram Negative Rods Anaerobic Blood Culture - Preliminary NO GROWTH AFTER 1 DAY 07/16/20 06:00 Aerobic Blood Culture - Preliminary Blood - Venous - Lab Draw NO GROWTH AFTER 1 DAY Anaerobic Blood Culture - Preliminary NO GROWTH AFTER 1 DAY Med Orders - Current: Current Medications Acetaminophen (Tylenol) 650 mg PO Q4H PRN PRN Reason: Pain Last Admin: 07/16/20 16:35 Dose: 650 mg Documented by: Amlodipine Besylate (Norvasc) 5 mg PO DAILY [facility] Last Admin: 07/17/20 08:49 Dose: 5 mg Documented by: Aspirin (Halfprin) 81 mg PO DAILY [facility] Last Admin: 07/17/20 08:49 Dose: 81 mg Documented by: Atorvastatin Calcium (Lipitor) 10 mg PO BEDTIME [facility] Last Admin: 07/16/20 20:23 Dose: 10 mg Documented by: Cetirizine HCl (Zyrtec) 10 mg PO BEDTIME [facility] Last Admin: 07/16/20 20:23 Dose: 10 mg Documented by: Dextrose/Water (Dextrose 50% In Water) 50 ml IV ASDIRECTED PRN PRN Reason: Hypoglycemia Famotidine (Pepcid) 20 mg IVPUSH Q12H [facility] Last Admin: 07/17/20 08:45 Dose: 20 mg Documented by: Fluoxetine HCl (Prozac) 20 mg PO DAILY [facility] Last Admin: 07/17/20 08:49 Dose: 20 mg Documented by: Glimepiride (Amaryl) 2 mg PO BIDMEALS [facility] Last Admin: 07/17/20 17:40 Dose: 2 mg Documented by: Glucagon (Glucagen) 1 mg IM ASDIRECTED PRN PRN Reason: Hypoglycemia Hydroxyzine HCl (Atarax) 25 mg PO Q6H PRN PRN Reason: Itching Ceftriaxone Sodium 1 gm/ (Sodium Chloride) 100 mls @ 200 mls/hr IV Q12H [facility] Last Admin: 07/17/20 08:44 Dose: 200 mls/hr Documented by: Sodium Chloride (Sodium Chloride 3%) 500 mls @ 50 mls/hr IV ASDIRECTED [facility] Last Admin: 07/16/20 11:42 Dose: 50 mls/hr Documented by: Insulin Human Lispro (Humalog) 0 unit SUBCUT QIDACANDBED [facility]; Protocol Last Admin: 07/17/20 17:40 Dose: 10 units Documented by: Lactobacillus Rhamnosus (Culturelle) 1 cap PO DAILY [facility] Last Admin: 07/17/20 08:49 Dose: 1 cap Documented by: Losartan Potassium (Cozaar) 50 mg PO DAILY [facility] Last Admin: 07/17/20 08:50 Dose: 50 mg Documented by: Magnesium Oxide (Magnesium Oxide) 400 mg PO BID [facility] Last Admin: 07/17/20 17:40 Dose: 400 mg Documented by: Ondansetron HCl (Zofran) 4 mg IVPUSH Q6H PRN PRN Reason: Nausea/Vomiting Last Admin: 07/16/20 12:39 Dose: 4 mg Documented by: Pantoprazole Sodium (Protonix Iv) 40 mg IVPUSH Q12H [facility] Last Admin: 07/17/20 08:44 Dose: 40 mg Documented by: Sodium Chloride (Saline Flush) 10 ml FLUSH ASDIRECTED PRN PRN Reason: Keep Vein Open Last Admin: 07/17/20 08:48 Dose: 10 ml Documented by: Sodium Chloride (Saline Flush) 10 ml FLUSH Q12HR [facility] Last Admin: 07/17/20 08:48 Dose: 10 ml Documented by: Temazepam (Restoril) 15 mg PO DAILY@2000 PRN PRN Reason: Insomnia Discontinued Medications Acetaminophen (Tylenol) 650 mg PO ONETIME ONE Stop: 07/16/20 05:45 Last Admin: 07/16/20 06:07 Dose: 650 mg Documented by: Famotidine (Pepcid) 40 mg IVPUSH ONETIME ONE Stop: 07/16/20 06:15 Last Admin: 07/16/20 06:23 Dose: 40 mg Documented by: Lactated Ringer's (Ringers, Lactated) 1,000 mls @ 999 mls/hr IV .BOLUS ONE Stop: 07/16/20 07:03 Last Admin: 07/16/20 06:04 Dose: 999 mls/hr Documented by: Ceftriaxone Sodium 1 gm/ (Sodium Chloride) 100 mls @ 200 mls/hr IV ONETIME ONE Stop: 07/16/20 07:28 Last Admin: 07/16/20 07:10 Dose: 200 mls/hr Documented by: Magnesium Sulfate 4 gm/ Premix 100 mls @ 25 mls/hr IV ONETIME ONE Stop: 07/16/20 14:14 Last Admin: 07/16/20 11:42 Dose: 25 mls/hr Documented by: Insulin Human Lispro (Humalog) 0 unit SUBCUT BIDAC [facility]; Protocol Iopamidol (Isovue-370 (76%)) Confirm Administered Dose 100 ml .ROUTE .STK-MED ONE Stop: 07/16/20 06:57 Last Admin: 07/16/20 15:41 Dose: Not Given Documented by: Iopamidol (Isovue-370 (76%)) 100 ml IVPUSH ONETIME STA Stop: 07/16/20 06:55 Last Admin: 07/16/20 08:35 Dose: 100 ml Documented by: Pantoprazole Sodium (Protonix Iv) 40 mg IVPUSH ONETIME ONE Stop: 07/16/20 06:15 Last Admin: 07/16/20 06:23 Dose: 40 mg Documented by: - Exam General: Alert, Oriented, Cooperative, No Acute Distress HEENT: Pupils Equal, Pupils Reactive, EOMI, Mucous Membr. Moist/[place] Neck: Supple Lungs: Clear to Auscultation, Normal Respiratory Effort Cardiovascular: Regular Rate, Regular Rhythm GI/Abdominal Exam: Normal Bowel Sounds, Soft, Non-Tender, No Distention (Male) Exam: Deferred Back Exam: No: CVA Tenderness (L), CVA Tenderness (R), Muscle Spasm Extremities: Normal Inspection, Non-Tender, Normal Capillary Refill Skin: Warm, Dry Neurological: No New Focal Deficit Psy/Mental Status: Alert, Normal Affect, Normal Mood Sepsis Event Note - Evaluation Sepsis Screening Result: No Definite Risk - Focused Exam Vital Signs: Vital Signs Temp Pulse Resp BP BP BP Pulse Ox 07/17/20 16:00 35.6 C L 82 112/61 112/61 07/17/20 12:00 37.2 C 81 16 129/59 L 97 07/17/20 08:50 135/64 07/17/20 08:49 135/64 07/17/20 08:00 37.1 C 14 135/64 96 - Problem List & Annotations (1) Pyelonephritis SNOMED Code(s): 83453569 Code(s): N12 - TUBULO-INTERSTITIAL NEPHRITIS, NOT SPCF ACUTE OR CHRONIC Status: Acute Priority: High Current Visit: No Onset Date: 07/16/20 Annotation/Comment:: Right-sided pyelonephritis. Noted to have gram negative rods in one blood culture specimen/pending ID. IV Rocephin given in the emergency room. Urine specimen has been set up for culture and sensitivity. Note history of mild BPH, including by exam in ER. Despite history as above patient did urinate prior to arrival to the emergency room with initial bladder ultrasound showing 185 cc of urine with subsequent bladder ultrasound after urination in the emergency showing only 10 cc. Therefore no significant urinary retention. Note decompensated AODM secondary to this infection with high fever, etc.. Mild leukocytosis with normal lactic acid level and no clinical evidence of sepsis. Continue IV Rocephin therapy after admission. (2) Weakness SNOMED Code(s): 14022494 Code(s): R53.1 - WEAKNESS Status: Acute Priority: High Current Visit: No Onset Date: ~07/15/20 Annotation/Comment:: Nonspecific generalized weakness possibly secondary to his current infection. No gross neurological deficits. Improving (3) Hyponatremia SNOMED Code(s): 69693199 Code(s): E87.1 - HYPO-OSMOLALITY AND HYPONATREMIA Status: Acute Priority: High Current Visit: No Onset Date: 07/16/20 Annotation/Comment:: Unknown etiology. 3% sodium chloride infusion x1 with resumption of IV fluids thereafter. No evidence of CHF, etc. (4) Hypomagnesemia SNOMED Code(s): 280066371 Code(s): E83.42 - HYPOMAGNESEMIA Status: Acute Priority: [facility] Current Visit: No Annotation/Comment:: Initiate magnesium sulfate IV therapy on admission with 4 g IV at that time and subsequent oral magnesium oxide therapy. (5) D-dimer, elevated SNOMED Code(s): 970078050 Code(s): R79.89 - OTHER SPECIFIED ABNORMAL FINDINGS OF BLOOD CHEMISTRY Status: Acute Priority: High Current Visit: No Onset Date: 07/16/20 Annotation/Comment:: Note negative CTA of the chest results and significant anemia as above. Venous Doppler studies of the lower extremities to be conducted. No clinical evidence of DVT or PE. Delay Lovenox therapy for now secondary to moderate anemia as above. D-dimer elevation possibly secondary to current pyelonephritis. (6) Anemia SNOMED Code(s): 088394794 Code(s): D64.9 - ANEMIA, UNSPECIFIED Status: Acute Priority: High Current Visit: No Onset Date: 07/16/20 Qualifiers: Anemia type: unspecified type Qualified Code(s): D64.9 - Anemia, unspecified Annotation/Comment:: Moderate anemia of unknown etiology with diabetic nephropathy as possible component. 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 High-dose IV Pepcid and IV Protonix were given as GI prophylaxis. Consider repeat EGD and colonoscopy depending on his clinical course. Note negative Hemoccult in the emergency room. (7) Compression fracture of L1 vertebra SNOMED Code(s): 015501262 Code(s): S32.010A - WEDGE COMPRESSION FRACTURE OF FIRST LUMBAR VERTEBRA, INIT Status: Acute Priority: Medium Current Visit: No Qualifiers: Encounter type: initial encounter Qualified Code(s): S32.010A - Wedge compression fracture of first lumbar vertebra, initial encounter for closed fracture Annotation/Comment:: Incidental finding as above. No history of recent fall, injury, or current complaints. Likely subacute in nature based on CTA report as above. Observe for now. (8) Diabetic nephropathy Status: Acute Priority: Medium Current Visit: No Onset Date: 07/16/20 Qualifiers: Diabetes mellitus type: type 2 Qualified Code(s): E11.21 - Type 2 diabetes mellitus with diabetic nephropathy Annotation/Comment:: Newly diagnosed. Continue to observe renal function closely. Patient is already on an angiotensin II receptor rosa maria. (9) Hypoalbuminemia SNOMED Code(s): 484438938 Code(s): E88.09 - OTH DISORDERS OF PLASMA-PROTEIN METABOLISM, NEC Status: Acute Priority: Medium Current Visit: No Onset Date: 07/16/20 Annotation/Comment:: Observe for now. Consider high-protein Glucerna supplements. (10) Hypocalcemia SNOMED Code(s): 8236810 Code(s): E83.51 - HYPOCALCEMIA Status: Acute Priority: Medium Current Visit: No Onset Date: 07/16/20 Annotation/Comment:: Observe for now (11) Diabetes mellitus SNOMED Code(s): 55283385 Code(s): E11.9 - TYPE 2 DIABETES MELLITUS WITHOUT COMPLICATIONS Status: Chronic Priority: Medium Current Visit: No Qualifiers: Diabetes mellitus type: type 2 Diabetes mellitus assisted insulin use: without termite control service representative use Diabetes mellitus complication status: with ophthalmic complications Diabetes mellitus complication detail: with diabetic retinopathy Diabetic retinopathy severity: with unspecified retinopathy severity Diabetes mellitus macular edema: without macular edema Laterality: unspecified laterality Qualified Code(s): E11.319 - Type 2 diabetes mellitus with unspecified diabetic retinopathy without macular edema Annotation/Comment:: Note significantly elevated Accu-Chek by the security guard dispatcher of 417 mg percent prior to arrival. The patient has not been taking his Accu-Cheks at home. No previous history of diabetic retinopathy. 1 L lactated Ringer's given in the emergency room. Initiate Humalog sliding scale with possible beginning IDDM. Glycosylated hemoglobin and lipid panel in the a.m. (12) Hyperlipidemia SNOMED Code(s): 90758448 Code(s): E78.5 - HYPERLIPIDEMIA, UNSPECIFIED Status: Chronic Priority: Medium Current Visit: No Qualifiers: Hyperlipidemia type: unspecified Qualified Code(s): E78.5 - Hyperlipidemia, unspecified Annotation/Comment:: Currently under therapy. Lipid panel in the a.m. (13) Hypertension SNOMED Code(s): 81701445 Code(s): I10 - ESSENTIAL (PRIMARY) HYPERTENSION Status: Chronic Priority: Medium Current Visit: No Qualifiers: Hypertension type: essential hypertension Qualified Code(s): I10 - Essential (primary) hypertension Annotation/Comment:: Blood pressures under good control in the emergency room. (14) Osteoarthritis SNOMED Code(s): 607340951 Code(s): M19.90 - UNSPECIFIED OSTEOARTHRITIS, UNSPECIFIED SITE Status: Chronic Priority: Medium Current Visit: No Qualifiers: Osteoarthritis location: multiple joints Osteoarthritis type: primary Qualified Code(s): M89.49 - Other hypertrophic osteoarthropathy, multiple sites Annotation/Comment:: Otherwise stable by history. - Problem List Review Problem List Initiated/Reviewed/Updated: Yes - Assessment Assessment:: as above - Plan Plan:: as above. Continue IV antibiotics. Pending ID and sensitivity of gram negative rods from one of blood cultures drawn in ER. Anticipate discharge home in 2-3 days depending upon clinical course and continued improvement.
[2020-07-17] MEDS: Cetirizine 10 MG Tab PO SCH (20:06)
[2020-07-17] MEDS: atorvaSTATin 10 MG Tab PO SCH (20:06)
[2020-07-18] MEDS: Losartan 50 MG Tab PO SCH (07:28)
[2020-07-18] MEDS: Insulin Lispro 100 Units/ML 3 ML Vial SUBCUT SCH ×4 (07:28→20:36)
[2020-07-18] MEDS: Glimepiride 2 MG Tab PO SCH ×2 (07:28→17:06)
[2020-07-18] MEDS: Lactobacillus Rhamnosus GG (Probiotic) Cap PO SCH (07:29)
[2020-07-18] MEDS: FLUoxetine 20 MG Cap PO SCH (07:29)
[2020-07-18] MEDS: cefTRIAXone 1 GM in Sodium Chloride 0.9% 100 ML IV SCH ×2 (07:29→20:29)
[2020-07-18] MEDS: Magnesium Oxide 400 MG Tab PO SCH ×2 (07:29→17:06)
[2020-07-18] MEDS: Pantoprazole 40 MG Vial IVPUSH SCH ×2 (07:29→20:30)
[2020-07-18] MEDS: Aspirin 81 MG Tab.EC PO SCH (07:29)
[2020-07-18] MEDS: amLODIPine 5 MG Tab PO SCH (07:29)
[2020-07-18] MEDS: Sodium Chloride 0.9% 10 ML Syringe FLUSH SCH ×2 (07:30→20:30)
[2020-07-18] MEDS: Sodium Chloride 0.9% 10 ML Syringe FLUSH PRN ×2 (07:31→11:11)
[2020-07-18] MEDS ORDERED: Furosemide 20 MG/2 ML VIAL IVPUSH ONE (08:11)
[2020-07-18 08:13] LABS: HEMOGLOBIN A1C 8.5 % (4.3-5.7)
--- NOTE | 2020-07-18 10:31 | PCM.PN ---
- General Info Date of Service: 07/18/20 Admission Dx/Problem (Free Text): Patient admitted for treatment of pyelonephritis Subjective Update: Patient reports that he feels much improved today. More energy. Able to ambulate. Good appetite. Still feels shaky with ambulation. - Review of Systems General: Reports: Fatigue. Denies: Fever, Weakness, Malaise, Chills, Night Sweats HEENT: Denies: Headaches, Sinus Congestion, Sore Throat, Rhinitis, Visual Changes Pulmonary: Reports: No Symptoms Cardiovascular: Reports: No Symptoms Gastrointestinal: Reports: No Symptoms Genitourinary: Reports: No Symptoms Musculoskeletal: Reports: Other (no acute changes from baseline) Skin: Reports: No Symptoms Neurological: Reports: Other (does feel shaky/lightheaded at times when walking. ) Psychiatric: Reports: No Symptoms - Patient Data Vitals - Most Recent: Last Vital Signs Temp 36.9 C 07/18/20 07:08 Pulse 72 07/18/20 07:08 Resp 16 07/18/20 07:08 BP 130/66 07/18/20 07:29 Pulse Ox 94 L 07/18/20 07:08 Weight - Most Recent: 79.107 kg I&O - Last 24 Hours: Intake & Output 07/17/20 07/18/20 07/18/20 22:59 06:59 14:59 Intake Total 1040 Balance 1040 Lab Results Last 24 Hours: Laboratory Results - last 24 hr 07/17/20 07/17/20 07/17/20 Range/Units 11:18 17:05 20:05 WBC (4.0-10.2) K/uL RBC (4.33-5.41) M/uL Hgb (13.1-16.8) g/dL Hct (39.0-49.0) % MCV (84.0-98.0) fL MCH (28.2-33.3) pg MCHC (31.7-36.0) g/dL RDW (11.2-14.1) % Plt Count (150-350) K/uL Neut % (Auto) (45.0-80.0) % Lymph % (Auto) (10.0-50.0) % Bartholomew % (Auto) (2.0-14.0) % Eos % (Auto) (0.0-5.0) % Baso % (Auto) (0.0-2.0) % Neut # (Auto) (1.40-7.00) K/uL Lymph # (Auto) (0.50-3.50) K/uL Bartholomew # (Auto) (0.00-1.00) K/uL Eos # (Auto) (0.00-0.50) K/uL Baso # (Auto) (0.00-0.20) K/uL Sodium (136-145) mmol/L Potassium (3.5-5.1) mmol/L Chloride (98-107) mmol/L Carbon Dioxide (21.0-32.0) mmol/L BUN (7-18) mg/dL Creatinine (0.51-1.17) mg/dL Est Cr Clr Drug Dosing mL/min Estimated GFR (MDRD) mL/min Glucose (74-106) mg/dL POC Glucose 241 H 356 H* 278 H* (65-110) mg/dl Hemoglobin A1c (4.3-5.7) % Calcium (8.5-10.1) mg/dL Magnesium (1.8-2.4) mg/dL Iron (50-175) ug/dL TIBC (250-450) ug/dL % Saturation Ferritin (8-388) ng/mL Vitamin B12 (193-986) pg/mL Folate (8.6-58.9) ng/mL Blood Type Gel Antibody Screen Crossmatch 07/18/20 07/18/20 07/18/20 Range/Units 06:50 06:50 06:50 WBC 6.7 (4.0-10.2) K/uL RBC 2.39 L (4.33-5.41) M/uL Hgb 7.0 L* (13.1-16.8) g/dL Hct 21.3 L* (39.0-49.0) % MCV 89.1 (84.0-98.0) fL MCH 29.3 (28.2-33.3) pg MCHC 32.9 (31.7-36.0) g/dL RDW 13.4 (11.2-14.1) % Plt Count 310 (150-350) K/uL Neut % (Auto) 77.5 (45.0-80.0) % Lymph % (Auto) 11.1 (10.0-50.0) % Bartholomew % (Auto) 9.3 (2.0-14.0) % Eos % (Auto) 1.8 (0.0-5.0) % Baso % (Auto) 0.3 (0.0-2.0) % Neut # (Auto) 5.18 (1.40-7.00) K/uL Lymph # (Auto) 0.74 (0.50-3.50) K/uL Bartholomew # (Auto) 0.62 (0.00-1.00) K/uL Eos # (Auto) 0.12 (0.00-0.50) K/uL Baso # (Auto) 0.02 (0.00-0.20) K/uL Sodium 132 L (136-145) mmol/L Potassium 4.0 (3.5-5.1) mmol/L Chloride 100 (98-107) mmol/L Carbon Dioxide 22.9 (21.0-32.0) mmol/L BUN 25 H (7-18) mg/dL Creatinine 1.69 H (0.51-1.17) mg/dL Est Cr Clr Drug Dosing 40.80 mL/min Estimated GFR (MDRD) 40 mL/min Glucose 112 H (74-106) mg/dL POC Glucose (65-110) mg/dl Hemoglobin A1c 8.5 H (4.3-5.7) % Calcium 8.0 L (8.5-10.1) mg/dL Magnesium 2.0 (1.8-2.4) mg/dL Iron (50-175) ug/dL TIBC (250-450) ug/dL % Saturation Ferritin (8-388) ng/mL Vitamin B12 1692 H (193-986) pg/mL Folate 5.6 L (8.6-58.9) ng/mL Blood Type Gel Antibody Screen Crossmatch 07/18/20 07/18/20 07/18/20 Range/Units 06:50 06:50 07:01 WBC (4.0-10.2) K/uL RBC (4.33-5.41) M/uL Hgb (13.1-16.8) g/dL Hct (39.0-49.0) % MCV (84.0-98.0) fL MCH (28.2-33.3) pg MCHC (31.7-36.0) g/dL RDW (11.2-14.1) % Plt Count (150-350) K/uL Neut % (Auto) (45.0-80.0) % Lymph % (Auto) (10.0-50.0) % Bartholomew % (Auto) (2.0-14.0) % Eos % (Auto) (0.0-5.0) % Baso % (Auto) (0.0-2.0) % Neut # (Auto) (1.40-7.00) K/uL Lymph # (Auto) (0.50-3.50) K/uL Bartholomew # (Auto) (0.00-1.00) K/uL Eos # (Auto) (0.00-0.50) K/uL Baso # (Auto) (0.00-0.20) K/uL Sodium (136-145) mmol/L Potassium (3.5-5.1) mmol/L Chloride (98-107) mmol/L Carbon Dioxide (21.0-32.0) mmol/L BUN (7-18) mg/dL Creatinine (0.51-1.17) mg/dL Est Cr Clr Drug Dosing mL/min Estimated GFR (MDRD) mL/min Glucose (74-106) mg/dL POC Glucose 117 H (65-110) mg/dl Hemoglobin A1c (4.3-5.7) % Calcium (8.5-10.1) mg/dL Magnesium (1.8-2.4) mg/dL Iron 14 L (50-175) ug/dL TIBC 111 L (250-450) ug/dL % Saturation 12.65172 Ferritin 602 H (8-388) ng/mL Vitamin B12 (193-986) pg/mL Folate (8.6-58.9) ng/mL Blood Type A NEGATIVE Gel Antibody Screen Negative Crossmatch See Detail Jean-Pierre Results Last 24 Hours: Microbiology 07/16/20 05:44 Urine Culture - Final Urine, Clean Catch Escherichia Coli 07/16/20 05:52 Aerobic Blood Culture - Preliminary Blood - Venous Gram Negative Rods Anaerobic Blood Culture - Preliminary NO GROWTH AFTER 2 DAYS 07/16/20 06:00 Aerobic Blood Culture - Preliminary Blood - Venous - Lab Draw NO GROWTH AFTER 2 DAYS Anaerobic Blood Culture - Preliminary NO GROWTH AFTER 2 DAYS Med Orders - Current: Current Medications Acetaminophen (Tylenol) 650 mg PO Q4H PRN PRN Reason: Pain Last Admin: 07/16/20 16:35 Dose: 650 mg Documented by: Amlodipine Besylate (Norvasc) 5 mg PO DAILY [facility] Last Admin: 07/18/20 07:29 Dose: 5 mg Documented by: Aspirin (Halfprin) 81 mg PO DAILY [facility] Last Admin: 07/18/20 07:29 Dose: 81 mg Documented by: Atorvastatin Calcium (Lipitor) 10 mg PO BEDTIME [facility] Last Admin: 07/17/20 20:06 Dose: 10 mg Documented by: Cetirizine HCl (Zyrtec) 10 mg PO BEDTIME [facility] Last Admin: 07/17/20 20:06 Dose: 10 mg Documented by: Dextrose/Water (Dextrose 50% In Water) 50 ml IV ASDIRECTED PRN PRN Reason: Hypoglycemia Fluoxetine HCl (Prozac) 20 mg PO DAILY [facility] Last Admin: 07/18/20 07:29 Dose: 20 mg Documented by: Furosemide (Lasix) 20 mg IVPUSH ONETIME ONE Stop: 07/19/20 12:01 Glimepiride (Amaryl) 2 mg PO BIDMEALS [facility] Last Admin: 07/18/20 07:28 Dose: 2 mg Documented by: Glucagon (Glucagen) 1 mg IM ASDIRECTED PRN PRN Reason: Hypoglycemia Hydroxyzine HCl (Atarax) 25 mg PO Q6H PRN PRN Reason: Itching Ceftriaxone Sodium 1 gm/ (Sodium Chloride) 100 mls @ 200 mls/hr IV Q12H [facility] Last Admin: 07/18/20 07:29 Dose: 200 mls/hr Documented by: Sodium Chloride (Sodium Chloride 3%) 500 mls @ 50 mls/hr IV ASDIRECTED [facility] Last Admin: 07/16/20 11:42 Dose: 50 mls/hr Documented by: Insulin Human Lispro (Humalog) 0 unit SUBCUT QIDACANDBED [facility]; Protocol Last Admin: 07/18/20 07:28 Dose: Not Given Documented by: Lactobacillus Rhamnosus (Culturelle) 1 cap PO DAILY [facility] Last Admin: 07/18/20 07:29 Dose: 1 cap Documented by: Losartan Potassium (Cozaar) 50 mg PO DAILY [facility] Last Admin: 07/18/20 07:28 Dose: 50 mg Documented by: Magnesium Oxide (Magnesium Oxide) 400 mg PO BID [facility] Last Admin: 07/18/20 07:29 Dose: 400 mg Documented by: Ondansetron HCl (Zofran) 4 mg IVPUSH Q6H PRN PRN Reason: Nausea/Vomiting Last Admin: 07/16/20 12:39 Dose: 4 mg Documented by: Pantoprazole Sodium (Protonix Iv) 40 mg IVPUSH Q12H [facility] Last Admin: 07/18/20 07:29 Dose: 40 mg Documented by: Sodium Chloride (Saline Flush) 10 ml FLUSH ASDIRECTED PRN PRN Reason: Keep Vein Open Last Admin: 07/18/20 07:31 Dose: 10 ml Documented by: Sodium Chloride (Saline Flush) 10 ml FLUSH Q12HR [facility] Last Admin: 07/18/20 07:30 Dose: 10 ml Documented by: Temazepam (Restoril) 15 mg PO DAILY@2000 PRN PRN Reason: Insomnia Discontinued Medications Acetaminophen (Tylenol) 650 mg PO ONETIME ONE Stop: 07/16/20 05:45 Last Admin: 07/16/20 06:07 Dose: 650 mg Documented by: Famotidine (Pepcid) 40 mg IVPUSH ONETIME ONE Stop: 07/16/20 06:15 Last Admin: 07/16/20 06:23 Dose: 40 mg Documented by: Famotidine (Pepcid) 20 mg IVPUSH Q12H [facility] Last Admin: 07/17/20 20:26 Dose: Not Given Documented by: Furosemide (Lasix) 20 mg IVPUSH ONETIME ONE Stop: 07/18/20 08:12 Lactated Ringer's (Ringers, Lactated) 1,000 mls @ 999 mls/hr IV .BOLUS ONE Stop: 07/16/20 07:03 Last Admin: 07/16/20 06:04 Dose: 999 mls/hr Documented by: Ceftriaxone Sodium 1 gm/ (Sodium Chloride) 100 mls @ 200 mls/hr IV ONETIME ONE Stop: 07/16/20 07:28 Last Admin: 07/16/20 07:10 Dose: 200 mls/hr Documented by: Magnesium Sulfate 4 gm/ Premix 100 mls @ 25 mls/hr IV ONETIME ONE Stop: 07/16/20 14:14 Last Admin: 07/16/20 11:42 Dose: 25 mls/hr Documented by: Insulin Human Lispro (Humalog) 0 unit SUBCUT BIDAC RYAN; Protocol Iopamidol (Isovue-370 (76%)) Confirm Administered Dose 100 ml .ROUTE .STK-MED ONE Stop: 07/16/20 06:57 Last Admin: 07/16/20 15:41 Dose: Not Given Documented by: Iopamidol (Isovue-370 (76%)) 100 ml IVPUSH ONETIME STA Stop: 07/16/20 06:55 Last Admin: 07/16/20 08:35 Dose: 100 ml Documented by: Pantoprazole Sodium (Protonix Iv) 40 mg IVPUSH ONETIME ONE Stop: 07/16/20 06:15 Last Admin: 07/16/20 06:23 Dose: 40 mg Documented by: - Exam General: Alert, Oriented, Cooperative, No Acute Distress HEENT: Pupils Equal, Pupils Reactive, EOMI, Mucous Membr. Moist/[place] Neck: Supple Lungs: Clear to Auscultation, Normal Respiratory Effort Cardiovascular: Regular Rhythm, Bradycardia GI/Abdominal Exam: Normal Bowel Sounds, Soft, Non-Tender, No Distention (Male) Exam: Deferred Back Exam: Normal Inspection Extremities: Normal Range of Motion, Non-Tender, No Pedal Edema Skin: Warm, Dry, Intact Neurological: No New Focal Deficit Psy/Mental Status: Alert, Normal Affect, Normal Mood Sepsis Event Note - Evaluation Sepsis Screening Result: No Definite Risk - Focused Exam Vital Signs: Vital Signs Temp Pulse Resp BP BP Pulse Ox 07/18/20 07:29 130/66 07/18/20 07:28 130/66 07/18/20 07:08 36.9 C 72 16 130/66 94 L - Problem List & Annotations (1) Pyelonephritis SNOMED Code(s): 26567755 Code(s): N12 - TUBULO-INTERSTITIAL NEPHRITIS, NOT SPCF ACUTE OR CHRONIC Status: Acute Priority: High Current Visit: No Onset Date: 07/16/20 Annotation/Comment:: Right-sided pyelonephritis. E.Coli, susceptible to Rocephin which he has been receiving since admission. Noted to have gram negative rods in one blood culture specimen/pending ID. Note history of mild BPH, including by exam in ER. Despite history as above patient did urinate prior to arrival to the emergency room with initial bladder ultrasound showing 185 cc of urine with subsequent bladder ultrasound after urination in the emergency showing only 10 cc. Therefore no significant urinary retention. Note decompensated AODM secondary to this infection with high fever, etc.. Mild leukocytosis with normal lactic acid level and no clinical evidence of sepsis. (2) Anemia SNOMED Code(s): 691884652 Code(s): D64.9 - ANEMIA, UNSPECIFIED Status: Acute Priority: High Current Visit: No Onset Date: 07/16/20 Qualifiers: Anemia type: due to chronic kidney disease Qualified Code(s): D64.9 - Anemia, unspecified Annotation/Comment:: Anemia consistent with chronic disease pattern, diabetic nephropathy as possible component. Note negative Hemoccult in the emergency room. Suspect diluational effect from antibiotics/IV NS led to further decrease and patient now at 7.0 Shakiness/lightheaded sensation with ambulation may reflect symptomatic component. Plan at this time is to transfuse 2 units PRBC in AM. Lab has ordered blood and it should be available for use tomorrow morning. Patient has given permission for transfusion. (3) Weakness SNOMED Code(s): 72331134 Code(s): R53.1 - WEAKNESS Status: Acute Priority: High Current Visit: No Onset Date: ~07/15/20 Annotation/Comment:: Nonspecific generalized weakness possibly secondary to his current infection and also anemia. No gross neurological deficits. Improving (4) Hyponatremia SNOMED Code(s): 86822216 Code(s): E87.1 - HYPO-OSMOLALITY AND HYPONATREMIA Status: Acute Priority: High Current Visit: No Onset Date: 07/16/20 Annotation/Comment:: Unknown etiology. 3% sodium chloride infusion x1 with resumption of IV fluids thereafter. No evidence of CHF, etc. (5) Hypomagnesemia SNOMED Code(s): 579532049 Code(s): E83.42 - HYPOMAGNESEMIA Status: Acute Priority: Medium Current Visit: No Annotation/Comment:: Initiate magnesium sulfate IV therapy on admission with 4 g IV at that time and subsequent oral magnesium oxide therapy. (6) D-dimer, elevated SNOMED Code(s): 007564088 Code(s): R79.89 - OTHER SPECIFIED ABNORMAL FINDINGS OF BLOOD CHEMISTRY Status: Acute Priority: High Current Visit: No Onset Date: 07/16/20 Annotation/Comment:: Note negative CTA of the chest results and significant anemia as above. Venous Doppler studies of the lower extremities to be conducted. No clinical evidence of DVT or PE. Delay Lovenox therapy for now secondary to moderate anemia as above. D-dimer elevation possibly secondary to current pyelonephritis. (7) Compression fracture of L1 vertebra SNOMED Code(s): 310956734 Code(s): S32.010A - WEDGE COMPRESSION FRACTURE OF FIRST LUMBAR VERTEBRA, INIT Status: Acute Priority: Medium Current Visit: No Qualifiers: Encounter type: initial encounter Qualified Code(s): S32.010A - Wedge compression fracture of first lumbar vertebra, initial encounter for closed fracture Annotation/Comment:: Incidental finding as above. No history of recent fall, injury, or current complaints. Likely subacute in nature based on CTA report as above. Observe for now. (8) Diabetic nephropathy Status: Acute Priority: Medium Current Visit: No Onset Date: 07/16/20 Qualifiers: Diabetes mellitus type: type 2 Qualified Code(s): E11.21 - Type 2 diabetes mellitus with diabetic nephropathy Annotation/Comment:: Newly diagnosed. Continue to observe renal function closely. Patient is already on an angiotensin II receptor rosa maria. (9) Hypoalbuminemia SNOMED Code(s): 562275922 Code(s): E88.09 - OTH DISORDERS OF PLASMA-PROTEIN METABOLISM, NEC Status: Acute Priority: Medium Current Visit: No Onset Date: 07/16/20 Annotation/Comment:: Observe for now. Consider high-protein Glucerna supplements. (10) Hypocalcemia SNOMED Code(s): 8658414 Code(s): E83.51 - HYPOCALCEMIA Status: Acute Priority: Medium Current Visit: No Onset Date: 07/16/20 Annotation/Comment:: Observe for now (11) Diabetes mellitus SNOMED Code(s): 56132216 Code(s): E11.9 - TYPE 2 DIABETES MELLITUS WITHOUT COMPLICATIONS Status: Chronic Priority: Medium Current Visit: No Qualifiers: Diabetes mellitus type: type 2 Diabetes mellitus usp insulin use: without terminal manager use Diabetes mellitus complication status: with ophthalmic complications Diabetes mellitus complication detail: with diabetic retinopathy Diabetic retinopathy severity: with unspecified retinopathy severity Diabetes mellitus macular edema: without macular edema Laterality: unspecified laterality Qualified Code(s): E11.319 - Type 2 diabetes mellitus with unspecified diabetic retinopathy without macular edema Annotation/Comment:: Note significantly elevated Accu-Chek by the slotter operator helper of 417 mg percent prior to arrival. The patient has not been taking his Accu-Cheks at home. No previous history of diabetic retinopathy. 1 L lactated Ringer's given in the emergency room. Initiate Humalog sliding scale with possible beginning IDDM. Glycosylated hemoglobin and lipid panel in the a.m. (12) Hyperlipidemia SNOMED Code(s): 61880451 Code(s): E78.5 - HYPERLIPIDEMIA, UNSPECIFIED Status: Chronic Priority: Medium Current Visit: No Qualifiers: Hyperlipidemia type: unspecified Qualified Code(s): E78.5 - Hyperlipidemia, unspecified Annotation/Comment:: Currently under therapy. Lipid panel in the a.m. (13) Hypertension SNOMED Code(s): 12706065 Code(s): I10 - ESSENTIAL (PRIMARY) HYPERTENSION Status: Chronic Priority: Medium Current Visit: No Qualifiers: Hypertension type: essential hypertension Qualified Code(s): I10 - Essential (primary) hypertension Annotation/Comment:: Blood pressures under good control in the emergency room. (14) Osteoarthritis SNOMED Code(s): 303275381 Code(s): M19.90 - UNSPECIFIED OSTEOARTHRITIS, UNSPECIFIED SITE Status: Chronic Priority: Medium Current Visit: No Qualifiers: Osteoarthritis location: multiple joints Osteoarthritis type: primary Qualified Code(s): M89.49 - Other hypertrophic osteoarthropathy, multiple sites Annotation/Comment:: Otherwise stable by history. - Problem List Review Problem List Initiated/Reviewed/Updated: Yes - My Orders Last 24 Hours: My Active Orders 07/17/20 20:00 Vital Signs [RC] Q8HR 07/17/20 22:24 Communication Order [RC] Q8HR 07/18/20 06:50 PACKED CELLS [RED BLOOD CELLS LP] [BBK] Routine TYPE AND SCREEN [BBK] Routine 07/18/20 Breakfast [place] [employer] Diet [DIET] Heart Healthy Diet [DIET] 07/18/20 08:08 Transfuse PRBC [Transfuse Red Blood Cells] [COMM] Routine 07/19/20 12:00 Furosemide [Lasix] 20 mg IVPUSH ONETIME ONE - Assessment Assessment:: as above - Plan Plan:: as above. Continue IV antibiotics. Pending ID and sensitivity of gram negative rods from one of blood cultures drawn in ER. Transfuse PRBCs in AM. Anticipate discharge home in 2-3 days depending upon clinical course and continued improvement.
[2020-07-18] MEDS: Sodium Chloride 3% 500 ML IV SCH (11:10)
[2020-07-18] MEDS: Cetirizine 10 MG Tab PO SCH (20:27)
[2020-07-18] MEDS: atorvaSTATin 10 MG Tab PO SCH (20:27)
[2020-07-19] MEDS: Sodium Chloride 3% 500 ML IV SCH (04:20)
[2020-07-19] MEDS: Sodium Chloride 0.9% 10 ML Syringe FLUSH PRN ×2 (08:21→12:16)
[2020-07-19] MEDS: Losartan 50 MG Tab PO SCH (08:23)
[2020-07-19] MEDS: Lactobacillus Rhamnosus GG (Probiotic) Cap PO SCH (08:23)
[2020-07-19] MEDS: Aspirin 81 MG Tab.EC PO SCH (08:24)
[2020-07-19] MEDS: Glimepiride 2 MG Tab PO SCH ×2 (08:24→17:07)
[2020-07-19] MEDS: amLODIPine 5 MG Tab PO SCH (08:24)
[2020-07-19] MEDS: Sodium Chloride 0.9% 10 ML Syringe FLUSH SCH ×2 (08:25→20:06)
[2020-07-19] MEDS: FLUoxetine 20 MG Cap PO SCH (08:25)
[2020-07-19] MEDS: Pantoprazole 40 MG Vial IVPUSH SCH ×2 (08:25→20:07)
[2020-07-19] MEDS: Magnesium Oxide 400 MG Tab PO SCH ×2 (08:25→17:07)
[2020-07-19] MEDS: cefTRIAXone 1 GM in Sodium Chloride 0.9% 100 ML IV SCH ×2 (08:26→20:07)
[2020-07-19] MEDS: Insulin Lispro 100 Units/ML 3 ML Vial SUBCUT SCH ×4 (08:26→20:17)
--- NOTE | 2020-07-19 10:36 | PCM.PN ---
- General Info Date of Service: 07/19/20 Admission Dx/Problem (Free Text): Patient admitted for treatment of pyelonephritis Subjective Update: Patient reports that he feels much improved today compared to time of admission. More energy. Able to ambulate. Good appetite. Still feels shaky with ambulation. Functional Status: Reports: Pain Controlled, Tolerating Diet, Ambulating, Urinating. Denies: New Symptoms - Review of Systems General: Reports: Weakness, Fatigue. Denies: Fever, Malaise, Chills, Night Sweats, Appetite HEENT: Denies: Headaches, Sinus Congestion, Sore Throat, Rhinitis, Visual Roth es Pulmonary: Reports: No Symptoms Cardiovascular: Reports: No Symptoms Gastrointestinal: Reports: No Symptoms Genitourinary: Reports: No Symptoms Musculoskeletal: Reports: Other (complaining of a bit of muscle stiffness in upper back/neck) Skin: Reports: No Symptoms Neurological: Reports: No Symptoms Psychiatric: Reports: No Symptoms - Patient Data Vitals - Most Recent: Last Vital Signs Temp 36.6 C 07/19/20 10:24 Pulse 68 07/19/20 10:24 Resp 16 07/19/20 10:24 BP 121/59 L 07/19/20 10:24 Pulse Ox 97 07/19/20 10:24 Weight - Most Recent: 79.107 kg I&O - Last 24 Hours: Intake & Output 07/18/20 07/19/20 07/19/20 22:59 06:59 14:59 Intake Total 1049 360 Balance 1049 360 Lab Results Last 24 Hours: Laboratory Results - last 24 hr 07/18/20 07/18/20 07/18/20 Range/Units 06:50 11:09 16:44 WBC (4.0-10.2) K/uL RBC (4.33-5.41) M/uL Hgb (13.1-16.8) g/dL Hct (39.0-49.0) % MCV (84.0-98.0) fL MCH (28.2-33.3) pg MCHC (31.7-36.0) g/dL RDW (11.2-14.1) % Plt Count (150-350) K/uL Neut % (Auto) (45.0-80.0) % Lymph % (Auto) (10.0-50.0) % [place] % (Auto) (2.0-14.0) % Eos % (Auto) (0.0-5.0) % Baso % (Auto) (0.0-2.0) % Neut # (Auto) (1.40-7.00) K/uL Lymph # (Auto) (0.50-3.50) K/uL [place] # (Auto) (0.00-1.00) K/uL Eos # (Auto) (0.00-0.50) K/uL Baso # (Auto) (0.00-0.20) K/uL Sodium (136-145) mmol/L Potassium (3.5-5.1) mmol/L Chloride (98-107) mmol/L Carbon Dioxide (21.0-32.0) mmol/L BUN (7-18) mg/dL Creatinine (0.51-1.17) mg/dL Est Cr Clr Drug Dosing mL/min Estimated GFR (MDRD) mL/min Glucose (74-106) mg/dL POC Glucose 205 H 321 H* (65-110) mg/dl Calcium (8.5-10.1) mg/dL Total Bilirubin (0.2-1.0) mg/dL AST (15-37) U/L ALT (12-78) U/L Alkaline Phosphatase (46-116) IU/L Total Protein (6.4-8.2) g/dL Albumin (3.4-5.0) g/dL Blood Type A NEGATIVE Gel Antibody Screen Negative Crossmatch See Detail 07/18/20 07/19/20 07/19/20 Range/Units 20:35 07:19 07:19 WBC 5.1 (4.0-10.2) K/uL RBC 2.39 L (4.33-5.41) M/uL Hgb 6.9 L* (13.1-16.8) g/dL Hct 21.5 L* (39.0-49.0) % MCV 90.0 (84.0-98.0) fL MCH 28.9 (28.2-33.3) pg MCHC 32.1 (31.7-36.0) g/dL RDW 13.9 (11.2-14.1) % Plt Count 305 (150-350) K/uL Neut % (Auto) 75.5 (45.0-80.0) % Lymph % (Auto) 13.6 (10.0-50.0) % [place] % (Auto) 7.9 (2.0-14.0) % Eos % (Auto) 2.6 (0.0-5.0) % Baso % (Auto) 0.4 (0.0-2.0) % Neut # (Auto) 3.82 (1.40-7.00) K/uL Lymph # (Auto) 0.69 (0.50-3.50) K/uL [place] # (Auto) 0.40 (0.00-1.00) K/uL Eos # (Auto) 0.13 (0.00-0.50) K/uL Baso # (Auto) 0.02 (0.00-0.20) K/uL Sodium 138 (136-145) mmol/L Potassium 4.4 (3.5-5.1) mmol/L Chloride 106 (98-107) mmol/L Carbon Dioxide 22.4 (21.0-32.0) mmol/L BUN 22 H (7-18) mg/dL Creatinine 1.42 H (0.51-1.17) mg/dL Est Cr Clr Drug Dosing 48.55 mL/min Estimated GFR (MDRD) 49 mL/min Glucose 134 H (74-106) mg/dL POC Glucose 269 H* (65-110) mg/dl Calcium 8.1 L (8.5-10.1) mg/dL Total Bilirubin 0.3 (0.2-1.0) mg/dL AST 38 H (15-37) U/L ALT 43 (12-78) U/L Alkaline Phosphatase 62 (46-116) IU/L Total Protein 5.8 L (6.4-8.2) g/dL Albumin 2.1 L (3.4-5.0) g/dL Blood Type Gel Antibody Screen Crossmatch 07/19/20 Range/Units 07:43 WBC (4.0-10.2) K/uL RBC (4.33-5.41) M/uL Hgb (13.1-16.8) g/dL Hct (39.0-49.0) % MCV (84.0-98.0) fL MCH (28.2-33.3) pg MCHC (31.7-36.0) g/dL RDW (11.2-14.1) % Plt Count (150-350) K/uL Neut % (Auto) (45.0-80.0) % Lymph % (Auto) (10.0-50.0) % [place] % (Auto) (2.0-14.0) % Eos % (Auto) (0.0-5.0) % Baso % (Auto) (0.0-2.0) % Neut # (Auto) (1.40-7.00) K/uL Lymph # (Auto) (0.50-3.50) K/uL [place] # (Auto) (0.00-1.00) K/uL Eos # (Auto) (0.00-0.50) K/uL Baso # (Auto) (0.00-0.20) K/uL Sodium (136-145) mmol/L Potassium (3.5-5.1) mmol/L Chloride (98-107) mmol/L Carbon Dioxide (21.0-32.0) mmol/L BUN (7-18) mg/dL Creatinine (0.51-1.17) mg/dL Est Cr Clr Drug Dosing mL/min Estimated GFR (MDRD) mL/min Glucose (74-106) mg/dL POC Glucose 156 H (65-110) mg/dl Calcium (8.5-10.1) mg/dL Total Bilirubin (0.2-1.0) mg/dL AST (15-37) U/L ALT (12-78) U/L Alkaline Phosphatase (46-116) IU/L Total Protein (6.4-8.2) g/dL Albumin (3.4-5.0) g/dL Blood Type Gel Antibody Screen Crossmatch Jean-Pierre Results Last 24 Hours: Microbiology 07/16/20 05:52 Aerobic Blood Culture - Final Blood - Venous Escherichia Coli Anaerobic Blood Culture - Preliminary NO GROWTH AFTER 3 DAYS 07/16/20 06:00 Aerobic Blood Culture - Preliminary Blood - Venous - Lab Draw NO GROWTH AFTER 3 DAYS Anaerobic Blood Culture - Preliminary NO GROWTH AFTER 3 DAYS 07/16/20 05:44 Urine Culture - Final Urine, Clean Catch Escherichia Coli Med Orders - Current: Current Medications Acetaminophen (Tylenol) 650 mg PO Q4H PRN PRN Reason: Pain Last Admin: 07/16/20 16:35 Dose: 650 mg Documented by: Amlodipine Besylate (Norvasc) 5 mg PO DAILY [facility] Last Admin: 07/19/20 08:24 Dose: 5 mg Documented by: Aspirin (Halfprin) 81 mg PO DAILY [facility] Last Admin: 07/19/20 08:24 Dose: 81 mg Documented by: Atorvastatin Calcium (Lipitor) 10 mg PO BEDTIME [facility] Last Admin: 07/18/20 20:27 Dose: 10 mg Documented by: Cetirizine HCl (Zyrtec) 10 mg PO BEDTIME [facility] Last Admin: 07/18/20 20:27 Dose: 10 mg Documented by: Dextrose/Water (Dextrose 50% In Water) 50 ml IV ASDIRECTED PRN PRN Reason: Hypoglycemia Fluoxetine HCl (Prozac) 20 mg PO DAILY [facility] Last Admin: 07/19/20 08:25 Dose: 20 mg Documented by: Folic Acid (Folic Acid) 1 mg PO DAILY [facility] Furosemide (Lasix) 20 mg IVPUSH ONETIME ONE Stop: 07/19/20 12:01 Glimepiride (Amaryl) 2 mg PO BIDMEALS [facility] Last Admin: 07/19/20 08:24 Dose: 2 mg Documented by: Glucagon (Glucagen) 1 mg IM ASDIRECTED PRN PRN Reason: Hypoglycemia Hydroxyzine HCl (Atarax) 25 mg PO Q6H PRN PRN Reason: Itching Ceftriaxone Sodium 1 gm/ (Sodium Chloride) 100 mls @ 200 mls/hr IV Q12H [facility] Last Admin: 07/19/20 08:26 Dose: 200 mls/hr Documented by: Sodium Chloride (Sodium Chloride 3%) 500 mls @ 35 mls/hr IV ASDIRECTED [facility] Last Admin: 07/19/20 04:20 Dose: 35 mls/hr Documented by: Insulin Human Lispro (Humalog) 0 unit SUBCUT QIDACANDBED [facility]; Protocol Last Admin: 07/19/20 08:26 Dose: 2 units Documented by: Lactobacillus Rhamnosus (Culturelle) 1 cap PO DAILY [facility] Last Admin: 07/19/20 08:23 Dose: 1 cap Documented by: Losartan Potassium (Cozaar) 50 mg PO DAILY [facility] Last Admin: 07/19/20 08:23 Dose: 50 mg Documented by: Magnesium Oxide (Magnesium Oxide) 400 mg PO BID [facility] Last Admin: 07/19/20 08:25 Dose: 400 mg Documented by: Ondansetron HCl (Zofran) 4 mg IVPUSH Q6H PRN PRN Reason: Nausea/Vomiting Last Admin: 07/16/20 12:39 Dose: 4 mg Documented by: Pantoprazole Sodium (Protonix Iv) 40 mg IVPUSH Q12H [facility] Last Admin: 07/19/20 08:25 Dose: 40 mg Documented by: Sodium Chloride (Saline Flush) 10 ml FLUSH ASDIRECTED PRN PRN Reason: Keep Vein Open Last Admin: 07/19/20 08:21 Dose: 10 ml Documented by: Sodium Chloride (Saline Flush) 10 ml FLUSH Q12HR [facility] Last Admin: 07/19/20 08:25 Dose: 10 ml Documented by: Temazepam (Restoril) 15 mg PO DAILY@2000 PRN PRN Reason: Insomnia Discontinued Medications Acetaminophen (Tylenol) 650 mg PO ONETIME ONE Stop: 07/16/20 05:45 Last Admin: 07/16/20 06:07 Dose: 650 mg Documented by: Famotidine (Pepcid) 40 mg IVPUSH ONETIME ONE Stop: 07/16/20 06:15 Last Admin: 07/16/20 06:23 Dose: 40 mg Documented by: Famotidine (Pepcid) 20 mg IVPUSH Q12H [facility] Last Admin: 07/17/20 20:26 Dose: Not Given Documented by: Furosemide (Lasix) 20 mg IVPUSH ONETIME ONE Stop: 07/18/20 08:12 Last Admin: 07/18/20 10:58 Dose: Not Given Documented by: Lactated Ringer's (Ringers, Lactated) 1,000 mls @ 999 mls/hr IV .BOLUS ONE Stop: 07/16/20 07:03 Last Admin: 07/16/20 06:04 Dose: 999 mls/hr Documented by: Ceftriaxone Sodium 1 gm/ (Sodium Chloride) 100 mls @ 200 mls/hr IV ONETIME ONE Stop: 07/16/20 07:28 Last Admin: 07/16/20 07:10 Dose: 200 mls/hr Documented by: Sodium Chloride (Sodium Chloride 3%) 500 mls @ 50 mls/hr IV ASDIRECTED [facility] Last Admin: 07/16/20 11:42 Dose: 50 mls/hr Documented by: Magnesium Sulfate 4 gm/ Premix 100 mls @ 25 mls/hr IV ONETIME ONE Stop: 07/16/20 14:14 Last Admin: 07/16/20 11:42 Dose: 25 mls/hr Documented by: Insulin Human Lispro (Humalog) 0 unit SUBCUT BIDAC [facility]; Protocol Iopamidol (Isovue-370 (76%)) Confirm Administered Dose 100 ml .ROUTE .STK-MED ONE Stop: 07/16/20 06:57 Last Admin: 07/16/20 15:41 Dose: Not Given Documented by: Iopamidol (Isovue-370 (76%)) 100 ml IVPUSH ONETIME STA Stop: 07/16/20 06:55 Last Admin: 07/16/20 08:35 Dose: 100 ml Documented by: Pantoprazole Sodium (Protonix Iv) 40 mg IVPUSH ONETIME ONE Stop: 07/16/20 06:15 Last Admin: 07/16/20 06:23 Dose: 40 mg Documented by: - Exam General: Alert, Oriented HEENT: Pupils Equal, Pupils Reactive, EOMI, Mucous Membr. Moist/[place] Neck: Supple Lungs: Clear to Auscultation, Normal Respiratory Effort Cardiovascular: Regular Rate, Regular Rhythm GI/Abdominal Exam: Soft, Non-Tender, No Distention (Male) Exam: Deferred Back Exam: No: CVA Tenderness (L), CVA Tenderness (R), Muscle Spasm Extremities: Normal Inspection, No Pedal Edema, Normal Capillary Refill Skin: Warm, Dry Neurological: No New Focal Deficit Psy/Mental Status: Alert, Normal Affect, Normal Mood Sepsis Event Note - Evaluation Sepsis Screening Result: No Definite Risk - Focused Exam Vital Signs: Vital Signs Temp Temp Pulse Resp BP BP Pulse Ox 07/19/20 10:24 36.6 C 68 16 121/59 L 97 07/19/20 10:13 36.7 C 64 16 150/60 H 07/19/20 08:24 140/65 07/19/20 08:23 140/65 07/19/20 08:00 36.8 C 65 14 140/65 94 L 07/18/20 23:56 36.4 C 75 18 140/85 97 - Problem List & Annotations (1) Pyelonephritis SNOMED Code(s): 59555985 Code(s): N12 - TUBULO-INTERSTITIAL NEPHRITIS, NOT SPCF ACUTE OR CHRONIC Status: Acute Priority: High Current Visit: No Onset Date: 07/16/20 Annotation/Comment:: Right-sided pyelonephritis. E.Coli, susceptible to Rocephin which he has been receiving since admission. E.Coli noted in blood culture. Note history of mild BPH, including by exam in ER. Despite history as above patient did urinate prior to arrival to the emergency room with initial bladder ultrasound showing 185 cc of urine with subsequent bladder ultrasound after urination in the emergency showing only 10 cc. Therefore no significant urinary retention. Note decompensated AODM secondary to this infection with high fever, etc.. Mild leukocytosis with normal lactic acid level and no clinical evidence of sepsis. (2) Anemia SNOMED Code(s): 730180922 Code(s): D64.9 - ANEMIA, UNSPECIFIED Status: Acute Priority: High Current Visit: No Onset Date: 07/16/20 Qualifiers: Anemia type: due to chronic kidney disease Qualified Code(s): D64.9 - Anemia, unspecified Annotation/Comment:: Anemia consistent with chronic disease pattern, diabetic nephropathy as possible component. Folic acid added to meds as folate level low. Peripheral smear/retic count ordered but are send outs. Note negative Hemoccult in the emergency room. Suspect diluational effect from antibiotics/IV NS led to further decrease and patient now at 6.9 Shakiness/lightheaded sensation with ambulation may reflect symptomatic component. Plan at this time is to transfuse 2 units PRBC today. Patient has given permission for transfusi on. (3) Weakness SNOMED Code(s): 09269640 Code(s): R53.1 - WEAKNESS Status: Acute Priority: High Current Visit: No Onset Date: ~07/15/20 Annotation/Comment:: Nonspecific generalized weakness possibly secondary to his current infection and also anemia. No gross neurological deficits. Improving (4) Hyponatremia SNOMED Code(s): 67427494 Code(s): E87.1 - HYPO-OSMOLALITY AND HYPONATREMIA Status: Acute Priority: High Current Visit: No Onset Date: 07/16/20 Annotation/Comment:: Unknown etiology. 3% sodium chloride infusion x1 with resumption of IV fluids thereafter. No evidence of CHF, etc. Na level normalized as of today. (5) Hypomagnesemia SNOMED Code(s): 084426061 Code(s): E83.42 - HYPOMAGNESEMIA Status: Acute Priority: Medium Current Visit: No Annotation/Comment:: Initiate magnesium sulfate IV therapy on admission with 4 g IV at that time and subsequent oral magnesium oxide therapy. (6) D-dimer, elevated SNOMED Code(s): 488513491 Code(s): R79.89 - OTHER SPECIFIED ABNORMAL FINDINGS OF BLOOD CHEMISTRY Status: Acute Priority: High Current Visit: No Onset Date: 07/16/20 Annotation/Comment:: Note negative CTA of the chest results and significant anemia as above. Venous Doppler studies of the lower extremities to be conducted. No clinical evidence of DVT or PE. Delay Lovenox therapy for now secondary to moderate anemia as above. D-dimer elevation possibly secondary to current pyelonephritis. (7) Compression fracture of L1 vertebra SNOMED Code(s): 663991352 Code(s): S32.010A - WEDGE COMPRESSION FRACTURE OF FIRST LUMBAR VERTEBRA, INIT Status: Acute Priority: Medium Current Visit: No Qualifiers: Encounter type: initial encounter Qualified Code(s): S32.010A - Wedge compression fracture of first lumbar vertebra, initial encounter for closed fracture Annotation/Comment:: Incidental finding as above. No history of recent fall, injury, or current complaints. Likely subacute in nature based on CTA report as above. Observe for now. (8) Diabetic nephropathy Status: Acute Priority: Medium Current Visit: No Onset Date: 07/16/20 Qualifiers: Diabetes mellitus type: type 2 Qualified Code(s): E11.21 - Type 2 diabetes mellitus with diabetic nephropathy Annotation/Comment:: Newly diagnosed. Continue to observe renal function closely. Patient is already on an angiotensin II receptor rosa maria. Overall BUN/Cr has improved over hospital course (9) Hypoalbuminemia SNOMED Code(s): 809152690 Code(s): E88.09 - [facility] DISORDERS OF PLASMA-PROTEIN METABOLISM, NEC Status: Acute Priority: Medium Current Visit: No Onset Date: 07/16/20 Annotation/Comment:: Observe for now. Consider high-protein Glucerna supplements. (10) Hypocalcemia SNOMED Code(s): 7432261 Code(s): E83.51 - HYPOCALCEMIA Status: Acute Priority: Medium Current Visit: No Onset Date: 07/16/20 Annotation/Comment:: Observe for now (11) Diabetes mellitus SNOMED Code(s): 40511307 Code(s): E11.9 - TYPE 2 DIABETES MELLITUS WITHOUT COMPLICATIONS Status: Chronic Priority: Medium Current Visit: No Qualifiers: Diabetes mellitus type: type 2 Diabetes mellitus skilled nursing insulin use: without windrower operator use Diabetes mellitus complication status: with ophthalmic complications Diabetes mellitus complication detail: with diabetic retinopathy Diabetic retinopathy severity: with unspecified retinopathy severity Diabetes mellitus macular edema: without macular edema Laterality: unspecified laterality Qualified Code(s): E11.319 - Type 2 diabetes mellitus with unspecified diabetic retinopathy without macular edema Annotation/Comment:: Note significantly elevated Accu-Chek by the first helper of 417 mg percent prior to arrival. The patient has not been taking his Accu-Cheks at home. No previous history of diabetic retinopathy. Glycosylated hemoglobin 8.5 (12) Hyperlipidemia SNOMED Code(s): 87295055 Code(s): E78.5 - HYPERLIPIDEMIA, UNSPECIFIED Status: Chronic Priority: Medium Current Visit: No Qualifiers: Hyperlipidemia type: unspecified Qualified Code(s): E78.5 - Hyperlipidemia, unspecified Annotation/Comment:: Currently under therapy. Lipid panel in the a.m. (13) Hypertension SNOMED Code(s): 40074663 Code(s): I10 - ESSENTIAL (PRIMARY) HYPERTENSION Status: Chronic Priority: Medium Current Visit: No Qualifiers: Hypertension type: essential hypertension Qualified Code(s): I10 - Essential (primary) hypertension Annotation/Comment:: Blood pressures under good control in the emergency room. (14) Osteoarthritis SNOMED Code(s): 441717825 Code(s): M19.90 - UNSPECIFIED OSTEOARTHRITIS, UNSPECIFIED SITE Status: Chronic Priority: Medium Current Visit: No Qualifiers: Osteoarthritis location: multiple joints Osteoarthritis type: primary Qualified Code(s): M89.49 - Other hypertrophic osteoarthropathy, multiple sites Annotation/Comment:: Otherwise stable by history. - Problem List Review Problem List Initiated/Reviewed/Updated: Yes - My Orders Last 24 Hours: My Active Orders 07/18/20 10:45 Sodium Chloride 3% 500 ml IV ASDIRECTED 12/10/20 10:29 BLOOD SMEARS TO PATHOLOGIST [REF] Routine RETICULOCYTE COUNT [REF] Routine 07/19/20 10:30 Folic Acid 1 mg PO DAILY 07/19/20 12:00 Furosemide [Lasix] 20 mg IVPUSH ONETIME ONE - Assessment Assessment:: as above - Plan Plan:: as above. Continue IV antibiotics. Blood transfusion today. Observe response tomorrow. Anticipate discharge home in two days on oral medications for continued treatment of UTI/Pyelo. to assume care in AM
[2020-07-19] MEDS ORDERED: Enoxaparin 40 MG/0.4 ML Syringe SUBCUT SCH (11:00)
[2020-07-19] MEDS: Enoxaparin 40 MG/0.4 ML Syringe SUBCUT SCH (11:22)
[2020-07-19] MEDS: Folic Acid 1 MG Tab PO SCH (11:22)
[2020-07-19] MEDS ORDERED: Furosemide 20 MG/2 ML VIAL IVPUSH ONE (12:00)
[2020-07-19] MEDS: atorvaSTATin 10 MG Tab PO SCH (20:11)
[2020-07-19] MEDS: Cetirizine 10 MG Tab PO SCH (20:11)
[2020-07-20] MEDS: cefTRIAXone 1 GM in Sodium Chloride 0.9% 100 ML IV SCH ×2 (07:36→20:16)
[2020-07-20] MEDS: Sodium Chloride 0.9% 10 ML Syringe FLUSH SCH ×2 (07:38→20:16)
[2020-07-20] MEDS: Losartan 50 MG Tab PO SCH (07:39)
[2020-07-20] MEDS: Folic Acid 1 MG Tab PO SCH (07:39)
[2020-07-20] MEDS: Lactobacillus Rhamnosus GG (Probiotic) Cap PO SCH (07:40)
[2020-07-20] MEDS: FLUoxetine 20 MG Cap PO SCH (07:40)
[2020-07-20] MEDS: Magnesium Oxide 400 MG Tab PO SCH ×3 (07:40→17:15)
[2020-07-20] MEDS: Glimepiride 2 MG Tab PO SCH ×2 (07:40→16:45)
[2020-07-20] MEDS: Aspirin 81 MG Tab.EC PO SCH (07:40)
[2020-07-20] MEDS: amLODIPine 5 MG Tab PO SCH (07:40)
[2020-07-20] MEDS: Insulin Lispro 100 Units/ML 3 ML Vial SUBCUT SCH ×4 (07:41→20:23)
[2020-07-20] MEDS: Pantoprazole 40 MG Vial IVPUSH SCH ×2 (07:54→20:15)
[2020-07-20] MEDS: Enoxaparin 40 MG/0.4 ML Syringe SUBCUT SCH (09:37)
--- NOTE | 2020-07-20 09:44 | PCM.PN ---
- General Info Date of Service: 07/20/20 Admission Dx/Problem (Free Text): 1. Pyelonephritis 2. Suspected sepsis 3. D-dimer elevation 4. Diabetes mellitus Functional Status: Reports: Pain Controlled, Tolerating Diet, Ambulating, Urinating. Denies: New Symptoms, Incentive Spirometry Pain Score: 0 - Review of Systems General: Reports: No Symptoms. Denies: Fever, Weakness, Fatigue, Malaise, Chills, Night Sweats, Appetite (Good) HEENT: Reports: No Symptoms. Denies: Dysphasia, Ear Pain, Eye Pain, Post Nasal Drip, Sinus Congestion, Sore Throat, Rhinitis, Visual Changes Pulmonary: Reports: No Symptoms. Denies: Shortness of Breath, Pleuritic Chest Pain, Cough, Sputum, Hemoptysis, Wheezing Cardiovascular: Reports: No Symptoms. Denies: Chest Pain, Palpitations, Dyspnea on Exertion, Orthopnea, PND, Edema, Lightheadedness Gastrointestinal: Reports: Constipation (Stable chronic with last bowel movement 3 days ago). Denies: Abdominal Pain, Decreased Appetite, Diarrhea, Difficulty Swallowing, Flatus, Hematochezia, Melena, Nausea, Vomiting Genitourinary: Reports: No Symptoms. Denies: Dysuria, Frequency, Burning, Pain, Urgency, Incontinence, Hematuria, Retention, Flank Pain Musculoskeletal: Reports: No Symptoms. Denies: Neck Pain, Shoulder Pain, Back Pain, Leg Pain, Joint Pain, Joint Swelling Skin: Reports: No Symptoms. Denies: Diaphoresis, Bruising, Rash Neurological: Reports: No Symptoms. Denies: Confusion, Dizziness, Numbness, Paresthesia, Pre-Existing Deficit, Tingling, Weakness Psychiatric: Reports: No Symptoms. Denies: Confusion, Depression, Anxiety, Agitation, Cravings, Hallucinations - Patient Data Vitals - Most Recent: Last Vital Signs Temp 36.7 C 07/20/20 08:00 Pulse 75 07/20/20 08:00 Resp 16 07/20/20 08:00 BP 165/74 H 07/20/20 08:00 Pulse Ox 97 07/20/20 08:00 Vital Signs - 24 hr 07/19/20 07/19/20 07/19/20 10:13 10:24 10:28 Temperature 36.7 C 36.6 C 36.7 C Temperature [ Oral] Pulse, 64 68 64 Peripheral [ Pulse Oximetry] Respiratory 16 16 16 Rate Blood Pressure Blood Pressure [Left Upper Arm ] Blood Pressure 150/60 H 121/59 L 131/60 [Right Upper Arm] O2 Sat by Pulse 97 Oximetry 07/19/20 07/19/20 07/19/20 11:15 12:15 12:24 Temperature 36.8 C 36.6 C 36.6 C Temperature [ Oral] Pulse, 68 74 65 Peripheral [ Pulse Oximetry] Respiratory 15 18 16 Rate Blood Pressure Blood Pressure [Left Upper Arm ] Blood Pressure 135/64 130/67 128/63 [Right Upper Arm] O2 Sat by Pulse 94 L 99 Oximetry 07/19/20 07/19/20 07/19/20 12:47 12:57 13:30 Temperature 36.5 C 36.6 C 36.6 C Temperature [ Oral] Pulse, 70 70 68 Peripheral [ Pulse Oximetry] Respiratory 15 17 16 Rate Blood Pressure Blood Pressure [Left Upper Arm ] Blood Pressure 129/62 143/61 H 133/61 [Right Upper Arm] O2 Sat by Pulse 100 Oximetry 07/19/20 07/19/20 07/20/20 14:32 16:00 00:00 Temperature 36.6 C Temperature [ 37.0 C 37.0 C Oral] Pulse, 73 79 67 Peripheral [ Pulse Oximetry] Respiratory 16 16 18 Rate Blood Pressure Blood Pressure 116/80 [Left Upper Arm ] Blood Pressure 124/67 131/69 [Right Upper Arm] O2 Sat by Pulse 98 97 95 Oximetry 07/20/20 07/20/20 07/20/20 07:39 07:40 08:00 Temperature Temperature [ 36.7 C Oral] Pulse, 75 Peripheral [ Pulse Oximetry] Respiratory 16 Rate Blood Pressure 165/74 H 165/74 H Blood Pressure 165/74 H [Left Upper Arm ] Blood Pressure [Right Upper Arm] O2 Sat by Pulse 97 Oximetry Weight - Most Recent: 79.107 kg I&O - Last 24 Hours: Intake & Output 07/19/20 07/20/20 07/20/20 22:59 06:59 14:59 Intake Total 170 900 460 Output Total 500 Balance -330 900 460 Imaging Impressions - Last 24 Hours: None Lab Results Last 24 Hours: Laboratory Results - last 24 hr 07/18/20 07/19/20 07/19/20 Range/Units 06:50 11:21 17:07 WBC (4.0-10.2) K/uL RBC (4.33-5.41) M/uL Hgb (13.1-16.8) g/dL Hct (39.0-49.0) % MCV (84.0-98.0) fL MCH (28.2-33.3) pg MCHC (31.7-36.0) g/dL RDW (11.2-14.1) % Plt Count (150-350) K/uL Neut % (Auto) (45.0-80.0) % Lymph % (Auto) (10.0-50.0) % Wise % (Auto) (2.0-14.0) % Eos % (Auto) (0.0-5.0) % Baso % (Auto) (0.0-2.0) % Neut # (Auto) (1.40-7.00) K/uL Lymph # (Auto) (0.50-3.50) K/uL Wise # (Auto) (0.00-1.00) K/uL Eos # (Auto) (0.00-0.50) K/uL Baso # (Auto) (0.00-0.20) K/uL Sodium (136-145) mmol/L Potassium (3.5-5.1) mmol/L Chloride (98-107) mmol/L Carbon Dioxide (21.0-32.0) mmol/L BUN (7-18) mg/dL Creatinine (0.51-1.17) mg/dL Est Cr Clr Drug Dosing mL/min Estimated GFR (MDRD) mL/min Glucose (74-106) mg/dL POC Glucose 212 H 279 H* (65-110) mg/dl Calcium (8.5-10.1) mg/dL Total Bilirubin (0.2-1.0) mg/dL AST (15-37) U/L ALT (12-78) U/L Alkaline Phosphatase (46-116) IU/L Total Protein (6.4-8.2) g/dL Albumin (3.4-5.0) g/dL Blood Type A NEGATIVE Gel Antibody Screen Negative Crossmatch See Detail 07/19/20 07/20/20 07/20/20 Range/Units 20:16 06:39 06:39 WBC 6.5 (4.0-10.2) K/uL RBC 3.15 L (4.33-5.41) M/uL Hgb 9.2 L D (13.1-16.8) g/dL Hct 28.1 L (39.0-49.0) % MCV 89.2 (84.0-98.0) fL MCH 29.2 (28.2-33.3) pg MCHC 32.7 (31.7-36.0) g/dL RDW 14.0 (11.2-14.1) % Plt Count 337 (150-350) K/uL Neut % (Auto) 71.5 (45.0-80.0) % Lymph % (Auto) 17.4 (10.0-50.0) % Wise % (Auto) 7.4 (2.0-14.0) % Eos % (Auto) 2.9 (0.0-5.0) % Baso % (Auto) 0.8 (0.0-2.0) % Neut # (Auto) 4.66 (1.40-7.00) K/uL Lymph # (Auto) 1.13 (0.50-3.50) K/uL Wise # (Auto) 0.48 (0.00-1.00) K/uL Eos # (Auto) 0.19 (0.00-0.50) K/uL Baso # (Auto) 0.05 (0.00-0.20) K/uL Sodium 135 L (136-145) mmol/L Potassium 4.3 (3.5-5.1) mmol/L Chloride 102 (98-107) mmol/L Carbon Dioxide 25.2 (21.0-32.0) mmol/L BUN 19 H (7-18) mg/dL Creatinine 1.38 H (0.51-1.17) mg/dL Est Cr Clr Drug Dosing 49.96 mL/min Estimated GFR (MDRD) 51 mL/min Glucose 144 H (74-106) mg/dL POC Glucose 279 H* (65-110) mg/dl Calcium 8.1 L (8.5-10.1) mg/dL Total Bilirubin 0.4 (0.2-1.0) mg/dL AST 31 (15-37) U/L ALT 40 (12-78) U/L Alkaline Phosphatase 69 (46-116) IU/L Total Protein 6.1 L (6.4-8.2) g/dL Albumin 2.1 L (3.4-5.0) g/dL Blood Type Gel Antibody Screen Crossmatch 07/20/20 Range/Units 07:32 WBC (4.0-10.2) K/uL RBC (4.33-5.41) M/uL Hgb (13.1-16.8) g/dL Hct (39.0-49.0) % MCV (84.0-98.0) fL MCH (28.2-33.3) pg MCHC (31.7-36.0) g/dL RDW (11.2-14.1) % Plt Count (150-350) K/uL Neut % (Auto) (45.0-80.0) % Lymph % (Auto) (10.0-50.0) % Wise % (Auto) (2.0-14.0) % Eos % (Auto) (0.0-5.0) % Baso % (Auto) (0.0-2.0) % Neut # (Auto) (1.40-7.00) K/uL Lymph # (Auto) (0.50-3.50) K/uL Wise # (Auto) (0.00-1.00) K/uL Eos # (Auto) (0.00-0.50) K/uL Baso # (Auto) (0.00-0.20) K/uL Sodium (136-145) mmol/L Potassium (3.5-5.1) mmol/L Chloride (98-107) mmol/L Carbon Dioxide (21.0-32.0) mmol/L BUN (7-18) mg/dL Creatinine (0.51-1.17) mg/dL Est Cr Clr Drug Dosing mL/min Estimated GFR (MDRD) mL/min Glucose (74-106) mg/dL POC Glucose 155 H (65-110) mg/dl Calcium (8.5-10.1) mg/dL Total Bilirubin (0.2-1.0) mg/dL AST (15-37) U/L ALT (12-78) U/L Alkaline Phosphatase (46-116) IU/L Total Protein (6.4-8.2) g/dL Albumin (3.4-5.0) g/dL Blood Type Gel Antibody Screen Crossmatch Jean-Pierre Results Last 24 Hours: Microbiology 07/16/20 06:00 Aerobic Blood Culture - Preliminary Blood - Venous - Lab Draw NO GROWTH AFTER 4 DAYS Anaerobic Blood Culture - Preliminary NO GROWTH AFTER 4 DAYS 07/16/20 05:52 Aerobic Blood Culture - Final Blood - Venous Escherichia Coli Anaerobic Blood Culture - Preliminary NO GROWTH AFTER 4 DAYS Microbiology 07/16/20 06:00 Blood - Venous - Lab Draw Aerobic Blood Culture - Preliminary NO GROWTH AFTER 4 DAYS 07/16/20 06:00 Blood - Venous - Lab Draw Anaerobic Blood Culture - Preliminary NO GROWTH AFTER 4 DAYS 07/16/20 05:52 Blood - Venous Aerobic Blood Culture - Final Escherichia Coli 07/16/20 05:52 Blood - Venous Anaerobic Blood Culture - Preliminary NO GROWTH AFTER 4 DAYS 07/16/20 05:44 Urine, Clean Catch Urine Culture - Final Escherichia Coli 07/16/20 06:38 Stool / Feces Stool Occult Blood (JEAN-PIERRE) - Final NEGATIVE OCCULT BLOOD REFERENCE RANGE: NEGATIVE 07/16/20 05:30 Nasal, Unspecified Influenza Type A Antigen Screen - Final NEGATIVE INFLUENZA A VIRUS AG REFERENCE RANGE: NEGATIVE 07/16/20 05:30 Nasal, Unspecified Influenza Type B Antigen Screen - Final NEGATIVE INFLUENZA B VIRUS AG REFERENCE RANGE: NEGATIVE Med Orders - Current: Current Medications Acetaminophen (Tylenol) 650 mg PO Q4H PRN PRN Reason: Pain Last Admin: 07/16/20 16:35 Dose: 650 mg Documented by: Amlodipine Besylate (Norvasc) 5 mg PO DAILY [facility] Last Admin: 07/20/20 07:40 Dose: 5 mg Documented by: Aspirin (Halfprin) 81 mg PO DAILY [facility] Last Admin: 07/20/20 07:40 Dose: 81 mg Documented by: Atorvastatin Calcium (Lipitor) 10 mg PO BEDTIME [facility] Last Admin: 07/19/20 20:11 Dose: 10 mg Documented by: Cetirizine HCl (Zyrtec) 10 mg PO BEDTIME [facility] Last Admin: 07/19/20 20:11 Dose: 10 mg Documented by: Dextrose/Water (Dextrose 50% In Water) 50 ml IV ASDIRECTED PRN PRN Reason: Hypoglycemia Ferrous Sulfate (Ferrous Sulfate) 325 mg PO BIDMEALS [facility] Fluoxetine HCl (Prozac) 20 mg PO DAILY [facility] Last Admin: 07/20/20 07:40 Dose: 20 mg Documented by: Folic Acid (Folic Acid) 1 mg PO DAILY [facility] Last Admin: 07/20/20 07:39 Dose: 1 mg Documented by: Glimepiride (Amaryl) 2 mg PO BIDMEALS [facility] Last Admin: 07/20/20 07:40 Dose: 2 mg Documented by: Glucagon (Glucagen) 1 mg IM ASDIRECTED PRN PRN Reason: Hypoglycemia Hydroxyzine HCl (Atarax) 25 mg PO Q6H PRN PRN Reason: Itching Ceftriaxone Sodium 1 gm/ (Sodium Chloride) 100 mls @ 200 mls/hr IV Q12H [facility] Last Admin: 07/20/20 07:36 Dose: 200 mls/hr Documented by: Insulin Human Lispro (Humalog) 0 unit SUBCUT QIDACANDBED [facility]; Protocol Last Admin: 07/20/20 07:41 Dose: 2 units Documented by: Lactobacillus Rhamnosus (Culturelle) 1 cap PO DAILY [facility] Last Admin: 07/20/20 07:40 Dose: 1 cap Documented by: Losartan Potassium (Cozaar) 50 mg PO DAILY [facility] Last Admin: 07/20/20 07:39 Dose: 50 mg Documented by: Magnesium Oxide (Magnesium Oxide) 400 mg PO BID [facility] Last Admin: 07/20/20 07:40 Dose: 400 mg Documented by: Metformin [facility] ([facility]) [facility] Ondansetron HCl (Zofran) 4 mg IVPUSH Q6H PRN PRN Reason: Nausea/Vomiting Last Admin: 07/16/20 12:39 Dose: 4 mg Documented by: Pantoprazole Sodium (Protonix Iv) 40 mg IVPUSH Q12H [facility] Last Admin: 07/20/20 07:54 Dose: 40 mg Documented by: Sodium Chloride (Saline Flush) 10 ml FLUSH ASDIRECTED PRN PRN Reason: Keep Vein Open Last Admin: 07/19/20 12:16 Dose: 10 ml Documented by: Sodium Chloride (Saline Flush) 10 ml FLUSH Q12HR [facility] Last Admin: 07/20/20 07:38 Dose: 10 ml Documented by: Temazepam (Restoril) 15 mg PO DAILY@2000 PRN PRN Reason: Insomnia Discontinued Medications Acetaminophen (Tylenol) 650 mg PO ONETIME ONE Stop: 07/16/20 05:45 Last Admin: 07/16/20 06:07 Dose: 650 mg Documented by: Enoxaparin Sodium (Lovenox) 40 mg SUBCUT Q24H [facility] Last Admin: 07/19/20 11:34 Dose: Not Given Documented by: Enoxaparin Sodium (Lovenox) 40 mg SUBCUT Q24H [facility] Last Admin: 07/20/20 09:37 Dose: Not Given Documented by: Famotidine (Pepcid) 40 mg IVPUSH ONETIME ONE Stop: 07/16/20 06:15 Last Admin: 07/16/20 06:23 Dose: 40 mg Documented by: Famotidine (Pepcid) 20 mg IVPUSH Q12H [facility] Last Admin: 07/17/20 20:26 Dose: Not Given Documented by: Furosemide (Lasix) 20 mg IVPUSH ONETIME ONE Stop: 07/18/20 08:12 Last Admin: 07/18/20 10:58 Dose: Not Given Documented by: Furosemide (Lasix) 20 mg IVPUSH ONETIME ONE Stop: 07/19/20 12:01 Last Admin: 07/19/20 12:16 Dose: 20 mg Documented by: Lactated Ringer's (Ringers, Lactated) 1,000 mls @ 999 mls/hr IV .BOLUS ONE Stop: 07/16/20 07:03 Last Admin: 07/16/20 06:04 Dose: 999 mls/hr Documented by: Ceftriaxone Sodium 1 gm/ (Sodium Chloride) 100 mls @ 200 mls/hr IV ONETIME ONE Stop: 07/16/20 07:28 Last Admin: 07/16/20 07:10 Dose: 200 mls/hr Documented by: Sodium Chloride (Sodium Chloride 3%) 500 mls @ 50 mls/hr IV ASDIRECTED [facility] Last Admin: 07/16/20 11:42 Dose: 50 mls/hr Documented by: Magnesium Sulfate 4 gm/ Premix 100 mls @ 25 mls/hr IV ONETIME ONE Stop: 07/16/20 14:14 Last Admin: 07/16/20 11:42 Dose: 25 mls/hr Documented by: Sodium Chloride (Sodium Chloride 3%) 500 mls @ 35 mls/hr IV ASDIRECTED [facility] Last Admin: 07/19/20 04:20 Dose: 35 mls/hr Documented by: Insulin Human Lispro (Humalog) 0 unit SUBCUT BIDAC [facility]YAN; Protocol Iopamidol (Isovue-370 (76%)) Confirm Administered Dose 100 ml .ROUTE .STK-MED ONE Stop: 07/16/20 06:57 Last Admin: 07/16/20 15:41 Dose: Not Given Documented by: Iopamidol (Isovue-370 (76%)) 100 ml IVPUSH ONETIME STA Stop: 07/16/20 06:55 Last Admin: 07/16/20 08:35 Dose: 100 ml Documented by: Pantoprazole Sodium (Protonix Iv) 40 mg IVPUSH ONETIME ONE Stop: 07/16/20 06:15 Last Admin: 07/16/20 06:23 Dose: 40 mg Documented by: - Exam Quality Assessment: DVT Prophylaxis (Lovenox). No: Supplemental Oxygen, Central Line/PICC, Urine Catheter, Skin Breakdown, Restraints General: Alert, Oriented, Cooperative, No Acute Distress HEENT: Pupils Equal, Pupils Reactive, EOMI, Mucous Membr. Moist/Juarez. No: Scleral Icterus Neck: Supple, Trachea Midline, No JVD, No Thyromegaly, Carotid Bruit (Mild raymond ateral carotid bruits). No: Lymphadenopathy Lungs: Clear to Auscultation, Normal Respiratory Effort. No: Rub Cardiovascular: Regular Rate, Regular Rhythm, No Murmurs. No: Gallops, Rubs GI/Abdominal Exam: Normal Bowel Sounds, Soft, Non-Tender, No Organomegaly, No Distention, No Abnormal Bruit, No Mass. No: Guarding (Male) Exam: Deferred Back Exam: Normal Inspection, Full Range of Motion. No: CVA Tenderness (L), CVA Tenderness (R), Muscle Spasm (None) Extremities: Normal Inspection, Normal Range of Motion, Non-Tender, No Pedal Edema, Normal Capillary Refill. No: Nirali's Sign Peripheral Pulses: 2+: Radial (L), Radial (R), Dorsalis Pedis (L), Dorsalis Pedis (R) Skin: Warm, Dry, Intact. No: Ecchymosis Neurological: No New Focal Deficit Psy/Mental Status: Alert, Normal Affect, Normal Mood. No: Agitated, Hallucinations, Withdrawal Symptoms Sepsis Event Note - Evaluation Sepsis Screening Result: No Definite Risk - Focused Exam Vital Signs: Vital Signs Temp Pulse Resp BP BP BP Pulse Ox 07/20/20 08:00 36.7 C 75 16 165/74 H 97 07/20/20 07:40 165/74 H 07/20/20 07:39 165/74 H 07/20/20 00:00 37.0 C 67 18 131/69 95 - Problem List & Annotations (1) Pyelonephritis SNOMED Code(s): 64275458 Code(s): N12 - TUBULO-INTERSTITIAL NEPHRITIS, NOT SPCF ACUTE OR CHRONIC Status: Acute Priority: High Current Visit: Yes Onset Date: 07/16/20 Annotation/Comment:: Right-sided pyelonephritis. E.Coli, susceptible to Rocephin which he has been receiving since admission. E.Coli noted in blood culture. Note history of mild BPH, including by exam in ER. Despite history as above patient did urinate prior to arrival to the emergency room with initial bladder ultrasound showing 185 cc of urine with subsequent bladder ultrasound after urination in the emergency showing only 10 cc. Therefore no significant urinary retention. Note decompensated AODM secondary to this infection with high fever, etc.. Mild leukocytosis with normal lactic acid level and no clin ical evidence of sepsis, however note positive blood cultures as above. (2) Sepsis SNOMED Code(s): 50697485 Code(s): A41.9 - SEPSIS, UNSPECIFIED ORGANISM Status: Acute Priority: [facility] Current Visit: Yes Onset Date: 07/16/20 Qualifiers: Sepsis type: Escherichia coli Sepsis acute organ dysfunction status: without acute organ dysfunction Qualified Code(s): A41.51 - Sepsis due to Escherichia coli [E. coli] Annotation/Comment:: Urosepsis as above. Augmentin therapy has been ordered for outpatient therapy secondary to pharmacies being closed on the weekend. Extended hospitalization secondary to required IV antibiotics with close follow- up by regular provider. (3) D-dimer, elevated SNOMED Code(s): 965995620 Code(s): R79.89 - OTHER SPECIFIED ABNORMAL FINDINGS OF BLOOD CHEMISTRY Status: Acute Priority: [facility] Current Visit: Yes Onset Date: 07/16/20 Annotation/Comment:: Note negative CTA of the chest and venous Doppler studies of the lower extremities on 07/16/2020. No clinical evidence of DVT or PE. Initially I did not initiate Lovenox therapy on admission secondary to moderate anemia at that time. [facility] physician did initiate low-dose subcu Lovenox therapy as DVT prophylaxis, however note subsequent development of progressive anemia requiring blood transfusion as below. Lovenox discontinued on 07/20/2020 with patient very active at this time. No direct evidence of acute GI bleed, etc., however further work-up of his anemia on an outpatient basis, including possible EGD, colonoscopy, etc. may be advisable. D-dimer elevation likely secondary to current pyelonephritis with this to be repeated prior to discharge. Close follow-up by his regular providers. (4) Anemia SNOMED Code(s): 657590741 Code(s): D64.9 - ANEMIA, UNSPECIFIED Status: Acute Priority: High Current Visit: Yes Onset Date: 07/16/20 Qualifiers: Anemia type: due to chronic kidney disease Chronic kidney disease stage: stage 3 (moderate) Annotation/Comment:: Etiology of the patient's anemia is multifactorial including probable diabetic nephropathy, newly diagnosed folic acid deficiency, and previously known iron deficiency. Note that patient's iron levels were decreased on 07/18 with elevated vitamin B12 level and ferritin level at that ti me. Note hypoalbuminemia. Iron sulfate reinitiated on 07/20 with previous initiation of folic acid therapy. Close follow-up by regular provider after discharge, including recommended folic acid level, TIBC panel, and ferritin level in about 4 weeks. Possible GI work-up as above. Peripheral heral smear/retic count was ordered but these are still pending secondary to these evaluations been send out procedures. s. Note negative Hemoccult in the emergency room. Suspect additional previous diluational effect from antibiotics/IV NS, however blood transfusion of 2 units of packed red blood cell s were required on 07/19 with improved hemoglobin of 9.2 on 07/20 and no complications from his transfusion. (5) Diabetes mellitus SNOMED Code(s): 59869569 Code(s): E11.9 - TYPE 2 DIABETES MELLITUS WITHOUT COMPLICATIONS Status: Chronic Priority: Medium Current Visit: Yes Qualifiers: Diabetes mellitus type: type 2 Diabetes mellitus long term care phlebotomist insulin use: without long term care phlebotomist use Diabetes mellitus complication status: with ophthalmic complications Diabetes mellitus complication detail: with diabetic retinopathy Diabetic retinopathy severity: with unspecified retinopathy severity Diabetes mellitus macular edema: without macular edema Laterality: unspecified laterality Qualified Code(s): E11.319 - Type 2 diabetes mellitus with unspecified diabetic retinopathy without macular edema Annotation/Comment:: Persistently elevated blood sugars throughout earlier portions of this hospitalization secondary to his current infection with sliding scale and affect. Venous blood sugar improved on 07/20. Note that patient's Metformin had been held shortly after admission secondary to the CTA of the chest with reinitiation of this therapy on 07/20. Continue to observe his Accu- Cheks closely with continuation of sliding scale for now. Note glycosylated hemoglobin of 8.5% during this hospitalization with close observation by his regular provider and consideration of initiation of antibiotic therapy at time of his follow-up visit. Note significantly elevated Accu-Chek by the solid propellant processor of 417 mg percent prior to arrival to our emergency room. The patient has not been taking his Accu-Cheks at home with compliance with at least twice daily Accu-Cheks after discharge. Note previous history of diabetic retinopathy. Close follow-up by regular provider discharge with recommended repeat glycosy lated hemoglobin in 3 months. (6) Hyponatremia SNOMED Code(s): 22915064 Code(s): E87.1 - HYPO-OSMOLALITY AND HYPONATREMIA Status: Acute Priority: High Current Visit: Yes Onset Date: 07/16/20 Annotation/Comment:: Unknown etiology. 3% sodium chloride infusion x1 with resumption of IV fluids thereafter. No evidence of CHF, etc. Note subsequent normalization of patient's sodium level with mildly decreased sodium level of 135 on 07/20. Continue to observe closely by his regular provider after discharge. (7) Weakness SNOMED Code(s): 79528576 Code(s): R53.1 - WEAKNESS Status: Acute Priority: High Current Visit: Yes Onset Date: ~07/15/20 Annotation/Comment:: Nonspecific generalized weakness possibly secondary to his current infection and also anemia. No gross neurological deficits. Significant improvement throughout this hospitalization with this no longer been a factor on 07/20. (8) Hyperlipidemia SNOMED Code(s): 23985060 Code(s): E78.5 - HYPERLIPIDEMIA, UNSPECIFIED Status: Chronic Priority: Medium Current Visit: Yes Qualifiers: Hyperlipidemia type: unspecified Qualified Code(s): E78.5 - Hyperlipidemia, unspecified Annotation/Comment:: Currently under therapy. Continue to observe closely by his regular provider. (9) Hypertension SNOMED Code(s): 33997874 Code(s): I10 - ESSENTIAL (PRIMARY) HYPERTENSION Status: Chronic Priority: Medium Current Visit: Yes Qualifiers: Hypertension type: essential hypertension Qualified Code(s): I10 - Essential (primary) hypertension Annotation/Comment:: Blood pressures under good control in the emergency room, although somewhat variable during this hospitalization, including on 07/20. Continue to observe closely, including by his regular provider at discharge. The patient is already on an angiotensin II receptor rosa maria. (10) Hypoalbuminemia SNOMED Code(s): 461252384 Code(s): E88.09 - [facility] DISORDERS OF PLASMA-PROTEIN METABOLISM, NEC Status: Acute Priority: Medium Current Visit: Yes Onset Date: 07/16/20 Annotation/Comment:: Observe for now. Consider high-protein Glucerna supplements. (11) Hypocalcemia SNOMED Code(s): 6186512 Code(s): E83.51 - HYPOCALCEMIA Status: Acute Priority: Medium Current Visit: Yes Onset Date: 07/16/20 Annotation/Comment:: Observe for now (12) Hypomagnesemia SNOMED Code(s): 771875896 Code(s): E83.42 - HYPOMAGNESEMIA Status: Acute Priority: Medium Current Visit: Yes Annotation/Comment:: Initiate magnesium sulfate IV therapy on admission with 4 g IV at that time and subsequent oral magnesium oxide therapy. Close follow-up by regular provider after discharge. (13) Compression fracture of L1 vertebra SNOMED Code(s): 741283171 Code(s): S32.010A - WEDGE COMPRESSION FRACTURE OF FIRST LUMBAR VERTEBRA, INIT Status: Acute Priority: Medium Current Visit: Yes Qualifiers: Encounter type: initial encounter Qualified Code(s): S32.010A - Wedge compression fracture of first lumbar vertebra, initial encounter for closed fracture Annotation/Comment:: Incidental finding as per emergency room note above. No history of recent fall, injury, or current complaints. Likely subacute in nature based on CTA report on admission. Observe for now. (14) Diabetic nephropathy Status: Acute Priority: Medium Current Visit: Yes Onset Date: 07/16/20 Qualifiers: Diabetes mellitus type: type 2 Qualified Code(s): E11.21 - Type 2 diabetes mellitus with diabetic nephropathy Annotation/Comment:: Newly diagnosed. Continue to observe renal function closely. Patient is already on an angiotensin II receptor rosa maria. Overall BUN/Cr has improved over hospital course (15) Osteoarthritis SNOMED Code(s): 458158215 Code(s): M19.90 - UNSPECIFIED OSTEOARTHRITIS, UNSPECIFIED SITE Status: Chronic Priority: Medium Current Visit: Yes Qualifiers: Osteoarthritis location: multiple joints Osteoarthritis type: primary Qualified Code(s): M89.49 - Other hypertrophic osteoarthropathy, multiple sites Annotation/Comment:: Otherwise stable by history. (16) Constipation SNOMED Code(s): 60571162 Code(s): K59.00 - CONSTIPATION, UNSPECIFIED Status: Chronic Priority: Medium Current Visit: Yes Qualifiers: Constipation type: chronic idiopathic constipation Qualified Code(s): K59.04 - Chronic idiopathic constipation Annotation/Comment:: Stable by patient history with the patient usually having a bowel movement every 3-4 days. (17) Folate deficiency SNOMED Code(s): 739652611 Code(s): E53.8 - DEFICIENCY OF OTHER SPECIFIED B GROUP VITAMINS Status: Acute Priority: Medium Current Visit: Yes Onset Date: 07/18/20 Annotation/Comment:: As above - Problem List Review Problem List Initiated/Reviewed/Updated: Yes - My Orders Last 24 Hours: My Active Orders 07/20/20 17:30 Ferrous Sulfate 325 mg PO BIDMEALS metFORMIN [Glucophage] 500 mg PO BIDMEALS - Assessment Assessment:: as above - Plan Plan:: as above. Extensive precautions were given to the patient, who is in agreement with the treatment plan. clerk general office physician assumes care in the a.m. with anticipated hospital discharge within the next 1-2 days. Note extended hospitalization required secondary to urosepsis and multiple healthcare issues as above.
[2020-07-20] MEDS: Ferrous Sulfate 325 MG Tab PO SCH (16:45)
[2020-07-20] MEDS: metFORMIN 500 MG Tab PO SCH (16:46)
[2020-07-20] MEDS: atorvaSTATin 10 MG Tab PO SCH (20:15)
[2020-07-20] MEDS: Cetirizine 10 MG Tab PO SCH (20:15)
[2020-07-21] MEDS: Pantoprazole 40 MG Vial IVPUSH SCH (07:37)
[2020-07-21] MEDS: cefTRIAXone 1 GM in Sodium Chloride 0.9% 100 ML IV SCH (07:37)
[2020-07-21] MEDS: Glimepiride 2 MG Tab PO SCH (07:38)
[2020-07-21] MEDS: Ferrous Sulfate 325 MG Tab PO SCH (07:38)
[2020-07-21] MEDS: Lactobacillus Rhamnosus GG (Probiotic) Cap PO SCH (07:38)
[2020-07-21] MEDS: Losartan 50 MG Tab PO SCH (07:38)
[2020-07-21] MEDS: amLODIPine 5 MG Tab PO SCH (07:38)
[2020-07-21] MEDS: Magnesium Oxide 400 MG Tab PO SCH (07:38)
[2020-07-21] MEDS: Aspirin 81 MG Tab.EC PO SCH (07:38)
[2020-07-21] MEDS: metFORMIN 500 MG Tab PO SCH (07:38)
[2020-07-21] MEDS: FLUoxetine 20 MG Cap PO SCH (07:38)
[2020-07-21] MEDS: Folic Acid 1 MG Tab PO SCH (07:38)
[2020-07-21] MEDS: Sodium Chloride 0.9% 10 ML Syringe FLUSH SCH (07:40)
[2020-07-21] MEDS: Sodium Chloride 0.9% 10 ML Syringe FLUSH PRN (07:42)
[2020-07-21] MEDS: Insulin Lispro 100 Units/ML 3 ML Vial SUBCUT SCH ×2 (07:45→11:34)
[2020-07-21 09:51] LABS: PTT,PARTIAL THROMBOPLSTIN TIME 31.1 SEC (24.5-32.8)
--- NOTE | 2020-07-21 10:38 | PCM.PN ---
- General Info Date of Service: 07/21/20 Admission Dx/Problem (Free Text): 1. Pyelonephritis 2. Suspected sepsis 3. D-dimer elevation 4. Diabetes mellitus Subjective Update: Doing well. States he feels better than before he got sick. Improved energy. No shortness of breath. No chest pain or tightness. No dysuria, urgency, frequency or flank pain. No nausea vomiting or diarrhea. - Review of Systems General: Denies: Fever, Weakness, Fatigue Pulmonary: Denies: Shortness of Breath, Cough Cardiovascular: Denies: Chest Pain, Palpitations Gastrointestinal: Denies: Abdominal Pain, Nausea, Vomiting Genitourinary: Denies: Dysuria, Frequency, Urgency, Flank Pain Neurological: Denies: Confusion, Dizziness Psychiatric: Denies: Depression, Anxiety - Patient Data Vitals - Most Recent: Last Vital Signs Temp 36.8 C 07/21/20 07:51 Pulse 67 07/21/20 07:51 Resp 17 07/21/20 07:51 BP 130/64 07/21/20 07:51 Pulse Ox 97 07/21/20 07:51 Weight - Most Recent: 79.107 kg I&O - Last 24 Hours: Intake & Output 07/20/20 07/21/20 07/21/20 22:59 06:59 14:59 Intake Total 800 100 420 Balance 800 100 420 Lab Results Last 24 Hours: Laboratory Results - last 24 hr 07/19/20 07/20/20 07/20/20 Range/Units 07:19 11:51 12:01 WBC (4.0-10.2) K/uL RBC (4.33-5.41) M/uL Hgb (13.1-16.8) g/dL Hct (39.0-49.0) % MCV (84.0-98.0) fL MCH (28.2-33.3) pg MCHC (31.7-36.0) g/dL RDW (11.2-14.1) % Plt Count (150-350) K/uL Neut % (Auto) (45.0-80.0) % Lymph % (Auto) (10.0-50.0) % [place] % (Auto) (2.0-14.0) % Eos % (Auto) (0.0-5.0) % Baso % (Auto) (0.0-2.0) % Neut # (Auto) (1.40-7.00) K/uL Lymph # (Auto) (0.50-3.50) K/uL [place] # (Auto) (0.00-1.00) K/uL Eos # (Auto) (0.00-0.50) K/uL Baso # (Auto) (0.00-0.20) K/uL Neutrophils % (Manual) 71 % Band Neuts % (Manual) 10 % Lymphocytes % (Manual) 13 % Monocytes % (Manual) 4 % Eosinophils % (Manual) 2 % Basophils % (Manual) 0 % Neutrophils # (Manual) 3.69 (1.80-7.00) x10-3 ul Band Neutrophils # Man 0.52 (0.00-0.70) x10-3 ul Lymphocytes # (Manual) 0.68 L (1.00-4.80) x10-3 ul Monocytes # (Manual) 0.21 (0.00-0.80) x10-3 ul Eosinophils # (Manual) 0.10 (0.00-0.45) x10-3 ul Basophils # (Manual) 0.00 (0.00-0.20) x10-3 ul RBC/WBC/PLT Morphology Abnormal (Normal) Toxic Granulation Seen (Absent) Platelet Estimate Adequate Smear Path Review Path rpt PT (9.5-12.0) SEC INR APTT (24.5-32.8) SEC D-Dimer, Quantitative (0-400) ng/mL Sodium (136-145) mmol/L Potassium (3.5-5.1) mmol/L Chloride (98-107) mmol/L Carbon Dioxide (21.0-32.0) mmol/L BUN (7-18) mg/dL Creatinine (0.51-1.17) mg/dL Est Cr Clr Drug Dosing mL/min Estimated GFR (MDRD) mL/min Glucose (74-106) mg/dL POC Glucose 219 H 226 H (65-110) mg/dl Calcium (8.5-10.1) mg/dL Magnesium (1.8-2.4) mg/dL 07/20/20 07/20/20 07/21/20 Range/Units 16:30 20:21 07:43 WBC (4.0-10.2) K/uL RBC (4.33-5.41) M/uL Hgb (13.1-16.8) g/dL Hct (39.0-49.0) % MCV (84.0-98.0) fL MCH (28.2-33.3) pg MCHC (31.7-36.0) g/dL RDW (11.2-14.1) % Plt Count (150-350) K/uL Neut % (Auto) (45.0-80.0) % Lymph % (Auto) (10.0-50.0) % [place] % (Auto) (2.0-14.0) % Eos % (Auto) (0.0-5.0) % Baso % (Auto) (0.0-2.0) % Neut # (Auto) (1.40-7.00) K/uL Lymph # (Auto) (0.50-3.50) K/uL [place] # (Auto) (0.00-1.00) K/uL Eos # (Auto) (0.00-0.50) K/uL Baso # (Auto) (0.00-0.20) K/uL Neutrophils % (Manual) % Band Neuts % (Manual) % Lymphocytes % (Manual) % Monocytes % (Manual) % Eosinophils % (Manual) % Basophils % (Manual) % Neutrophils # (Manual) (1.80-7.00) x10-3 ul Band Neutrophils # Man (0.00-0.70) x10-3 ul Lymphocytes # (Manual) (1.00-4.80) x10-3 ul Monocytes # (Manual) (0.00-0.80) x10-3 ul Eosinophils # (Manual) (0.00-0.45) x10-3 ul Basophils # (Manual) (0.00-0.20) x10-3 ul RBC/WBC/PLT Morphology (Normal) Toxic Granulation (Absent) Platelet Estimate Smear Path Review PT (9.5-12.0) SEC INR APTT (24.5-32.8) SEC D-Dimer, Quantitative (0-400) ng/mL Sodium (136-145) mmol/L Potassium (3.5-5.1) mmol/L Chloride (98-107) mmol/L Carbon Dioxide (21.0-32.0) mmol/L BUN (7-18) mg/dL Creatinine (0.51-1.17) mg/dL Est Cr Clr Drug Dosing mL/min Estimated GFR (MDRD) mL/min Glucose (74-106) mg/dL POC Glucose 241 H 232 H 116 H (65-110) mg/dl Calcium (8.5-10.1) mg/dL Magnesium (1.8-2.4) mg/dL 07/21/20 07/21/20 07/21/20 Range/Units 07:45 07:45 07:45 WBC 5.1 (4.0-10.2) K/uL RBC 3.56 L (4.33-5.41) M/uL Hgb 10.2 L (13.1-16.8) g/dL Hct 31.7 L (39.0-49.0) % MCV 89.0 (84.0-98.0) fL MCH 28.7 (28.2-33.3) pg MCHC 32.2 (31.7-36.0) g/dL RDW 13.8 (11.2-14.1) % Plt Count 383 H (150-350) K/uL Neut % (Auto) 65.5 (45.0-80.0) % Lymph % (Auto) 20.6 (10.0-50.0) % [place] % (Auto) 10.1 (2.0-14.0) % Eos % (Auto) 3.4 (0.0-5.0) % Baso % (Auto) 0.4 (0.0-2.0) % Neut # (Auto) 3.31 (1.40-7.00) K/uL Lymph # (Auto) 1.04 (0.50-3.50) K/uL [place] # (Auto) 0.51 (0.00-1.00) K/uL Eos # (Auto) 0.17 (0.00-0.50) K/uL Baso # (Auto) 0.02 (0.00-0.20) K/uL Neutrophils % (Manual) % Band Neuts % (Manual) % Lymphocytes % (Manual) % Monocytes % (Manual) % Eosinophils % (Manual) % Basophils % (Manual) % Neutrophils # (Manual) (1.80-7.00) x10-3 ul Band Neutrophils # Man (0.00-0.70) x10-3 ul Lymphocytes # (Manual) (1.00-4.80) x10-3 ul Monocytes # (Manual) (0.00-0.80) x10-3 ul Eosinophils # (Manual) (0.00-0.45) x10-3 ul Basophils # (Manual) (0.00-0.20) x10-3 ul RBC/WBC/PLT Morphology (Normal) Toxic Granulation (Absent) Platelet Estimate Smear Path Review PT 11.6 (9.5-12.0) SEC INR 1.2 APTT 31.1 (24.5-32.8) SEC D-Dimer, Quantitative 2430 H (0-400) ng/mL Sodium (136-145) mmol/L Potassium (3.5-5.1) mmol/L Chloride (98-107) mmol/L Carbon Dioxide (21.0-32.0) mmol/L BUN (7-18) mg/dL Creatinine (0.51-1.17) mg/dL Est Cr Clr Drug Dosing mL/min Estimated GFR (MDRD) mL/min Glucose (74-106) mg/dL POC Glucose (65-110) mg/dl Calcium (8.5-10.1) mg/dL Magnesium (1.8-2.4) mg/dL 07/21/20 Range/Units 07:45 WBC (4.0-10.2) K/uL RBC (4.33-5.41) M/uL Hgb (13.1-16.8) g/dL Hct (39.0-49.0) % MCV (84.0-98.0) fL MCH (28.2-33.3) pg MCHC (31.7-36.0) g/dL RDW (11.2-14.1) % Plt Count (150-350) K/uL Neut % (Auto) (45.0-80.0) % Lymph % (Auto) (10.0-50.0) % [place] % (Auto) (2.0-14.0) % Eos % (Auto) (0.0-5.0) % Baso % (Auto) (0.0-2.0) % Neut # (Auto) (1.40-7.00) K/uL Lymph # (Auto) (0.50-3.50) K/uL [place] # (Auto) (0.00-1.00) K/uL Eos # (Auto) (0.00-0.50) K/uL Baso # (Auto) (0.00-0.20) K/uL Neutrophils % (Manual) % Band Neuts % (Manual) % Lymphocytes % (Manual) % Monocytes % (Manual) % Eosinophils % (Manual) % Basophils % (Manual) % Neutrophils # (Manual) (1.80-7.00) x10-3 ul Band Neutrophils # Man (0.00-0.70) x10-3 ul Lymphocytes # (Manual) (1.00-4.80) x10-3 ul Monocytes # (Manual) (0.00-0.80) x10-3 ul Eosinophils # (Manual) (0.00-0.45) x10-3 ul Basophils # (Manual) (0.00-0.20) x10-3 ul RBC/WBC/PLT Morphology (Normal) Toxic Granulation (Absent) Platelet Estimate Smear Path Review PT (9.5-12.0) SEC INR APTT (24.5-32.8) SEC D-Dimer, Quantitative (0-400) ng/mL Sodium 137 (136-145) mmol/L Potassium 4.4 (3.5-5.1) mmol/L Chloride 103 (98-107) mmol/L Carbon Dioxide 26.4 (21.0-32.0) mmol/L BUN 18 (7-18) mg/dL Creatinine 1.21 H (0.51-1.17) mg/dL Est Cr Clr Drug Dosing 56.98 mL/min Estimated GFR (MDRD) 59 mL/min Glucose 113 H (74-106) mg/dL POC Glucose (65-110) mg/dl Calcium 8.8 (8.5-10.1) mg/dL Magnesium 1.5 L (1.8-2.4) mg/dL Jean-Pierre Results Last 24 Hours: Microbiology 07/16/20 06:00 Aerobic Blood Culture - Final Blood - Venous - Lab Draw NO GROWTH AFTER 5 DAYS Anaerobic Blood Culture - Final NO GROWTH AFTER 5 DAYS 07/16/20 05:52 Aerobic Blood Culture - Final Blood - Venous Escherichia Coli Anaerobic Blood Culture - Final NO GROWTH AFTER 5 DAYS Med Orders - Current: Current Medications Acetaminophen (Tylenol) 650 mg PO Q4H PRN PRN Reason: Pain Last Admin: 07/16/20 16:35 Dose: 650 mg Documented by: Amlodipine Besylate (Norvasc) 5 mg PO DAILY [facility] Last Admin: 07/21/20 07:38 Dose: 5 mg Documented by: Aspirin (Halfprin) 81 mg PO DAILY [facility] Last Admin: 07/21/20 07:38 Dose: 81 mg Documented by: Atorvastatin Calcium (Lipitor) 10 mg PO BEDTIME [facility] Last Admin: 07/20/20 20:15 Dose: 10 mg Documented by: Cetirizine HCl (Zyrtec) 10 mg PO BEDTIME [facility] Last Admin: 07/20/20 20:15 Dose: 10 mg Documented by: Dextrose/Water (Dextrose 50% In Water) 50 ml IV ASDIRECTED PRN PRN Reason: Hypoglycemia Ferrous Sulfate (Ferrous Sulfate) 325 mg PO BIDMEALS [facility] Last Admin: 07/21/20 07:38 Dose: 325 mg Documented by: Fluoxetine HCl (Prozac) 20 mg PO DAILY [facility] Last Admin: 07/21/20 07:38 Dose: 20 mg Documented by: Folic Acid (Folic Acid) 1 mg PO DAILY [facility] Last Admin: 07/21/20 07:38 Dose: 1 mg Documented by: Glimepiride (Amaryl) 2 mg PO BIDMEALS [facility] Last Admin: 07/21/20 07:38 Dose: 2 mg Documented by: Glucagon (Glucagen) 1 mg IM ASDIRECTED PRN PRN Reason: Hypoglycemia Hydroxyzine HCl (Atarax) 25 mg PO Q6H PRN PRN Reason: Itching Ceftriaxone Sodium 1 gm/ (Sodium Chloride) 100 mls @ 200 mls/hr IV Q12H [facility] Last Admin: 07/21/20 07:37 Dose: 200 mls/hr Documented by: Insulin Human Lispro (Humalog) 0 unit SUBCUT QIDACANDBED [facility]; Protocol Last Admin: 07/21/20 07:45 Dose: Not Given Documented by: Lactobacillus Rhamnosus (Culturelle) 1 cap PO DAILY [facility] Last Admin: 07/21/20 07:38 Dose: 1 cap Documented by: Losartan Potassium (Cozaar) 50 mg PO DAILY [facility] Last Admin: 07/21/20 07:38 Dose: 50 mg Documented by: Magnesium Oxide (Magnesium Oxide) 400 mg PO BID [facility] Last Admin: 07/21/20 07:38 Dose: 400 mg Documented by: Metformin HCl (Glucophage) 500 mg PO BIDMEALS [facility] Last Admin: 07/21/20 07:38 Dose: 500 mg Documented by: Ondansetron HCl (Zofran) 4 mg IVPUSH Q6H PRN PRN Reason: Nausea/Vomiting Last Admin: 07/16/20 12:39 Dose: 4 mg Documented by: Pantoprazole Sodium (Protonix Iv) 40 mg IVPUSH Q12H [facility] Last Admin: 07/21/20 07:37 Dose: 40 mg Documented by: Sodium Chloride (Saline Flush) 10 ml FLUSH ASDIRECTED PRN PRN Reason: Keep Vein Open Last Admin: 07/21/20 07:42 Dose: 10 ml Documented by: Sodium Chloride (Saline Flush) 10 ml FLUSH Q12HR [facility] Last Admin: 07/21/20 07:40 Dose: 10 ml Documented by: Temazepam (Restoril) 15 mg PO DAILY@2000 PRN PRN Reason: Insomnia Discontinued Medications Acetaminophen (Tylenol) 650 mg PO ONETIME ONE Stop: 07/16/20 05:45 Last Admin: 07/16/20 06:07 Dose: 650 mg Documented by: Enoxaparin Sodium (Lovenox) 40 mg SUBCUT Q24H [facility] Last Admin: 07/19/20 11:34 Dose: Not Given Documented by: Enoxaparin Sodium (Lovenox) 40 mg SUBCUT Q24H [facility] Last Admin: 07/20/20 09:37 Dose: Not Given Documented by: Famotidine (Pepcid) 40 mg IVPUSH ONETIME ONE Stop: 07/16/20 06:15 Last Admin: 07/16/20 06:23 Dose: 40 mg Documented by: Famotidine (Pepcid) 20 mg IVPUSH Q12H [facility] Last Admin: 07/17/20 20:26 Dose: Not Given Documented by: Furosemide (Lasix) 20 mg IVPUSH ONETIME ONE Stop: 07/18/20 08:12 Last Admin: 07/18/20 10:58 Dose: Not Given Documented by: Furosemide (Lasix) 20 mg IVPUSH ONETIME ONE Stop: 07/19/20 12:01 Last Admin: 07/19/20 12:16 Dose: 20 mg Documented by: Lactated Ringer's (Ringers, Lactated) 1,000 mls @ 999 mls/hr IV .BOLUS ONE Stop: 07/16/20 07:03 Last Admin: 07/16/20 06:04 Dose: 999 mls/hr Documented by: Ceftriaxone Sodium 1 gm/ (Sodium Chloride) 100 mls @ 200 mls/hr IV ONETIME ONE Stop: 07/16/20 07:28 Last Admin: 07/16/20 07:10 Dose: 200 mls/hr Documented by: Sodium Chloride (Sodium Chloride 3%) 500 mls @ 50 mls/hr IV ASDIRECTED [facility] Last Admin: 07/16/20 11:42 Dose: 50 mls/hr Documented by: Magnesium Sulfate 4 gm/ Premix 100 mls @ 25 mls/hr IV ONETIME ONE Stop: 07/16/20 14:14 Last Admin: 07/16/20 11:42 Dose: 25 mls/hr Documented by: Sodium Chloride (Sodium Chloride 3%) 500 mls @ 35 mls/hr IV ASDIRECTED [facility] Last Admin: 07/19/20 04:20 Dose: 35 mls/hr Documented by: Insulin Human Lispro (Humalog) 0 unit SUBCUT BIDAC [facility]; Protocol Iopamidol (Isovue-370 (76%)) Confirm Administered Dose 100 ml .ROUTE .STK-MED ONE Stop: 07/16/20 06:57 Last Admin: 07/16/20 15:41 Dose: Not Given Documented by: Iopamidol (Isovue-370 (76%)) 100 ml IVPUSH ONETIME STA Stop: 07/16/20 06:55 Last Admin: 07/16/20 08:35 Dose: 100 ml Documented by: Pantoprazole Sodium (Protonix Iv) 40 mg IVPUSH ONETIME ONE Stop: 07/16/20 06:15 Last Admin: 07/16/20 06:23 Dose: 40 mg Documented by: - Exam General: Alert, Oriented Lungs: Clear to Auscultation, Normal Respiratory Effort Cardiovascular: Regular Rate, Regular Rhythm, No Murmurs GI/Abdominal Exam: Normal Bowel Sounds, Soft, Non-Tender Back Exam: No: CVA Tenderness (L), CVA Tenderness (R) Extremities: No Pedal Edema Skin: Warm, Dry Neurological: Normal Speech Psy/Mental Status: Alert, Normal Affect, Normal Mood Sepsis Event Note - Evaluation Sepsis Screening Result: No Definite Risk - Focused Exam Vital Signs: Vital Signs Temp Pulse Resp BP BP Pulse Ox 07/21/20 07:51 36.8 C 67 17 130/64 97 07/21/20 07:38 130/64 - Problem List & Annotations (1) Pyelonephritis SNOMED Code(s): 35002894 Code(s): N12 - TUBULO-INTERSTITIAL NEPHRITIS, NOT SPCF ACUTE OR CHRONIC Status: Acute Priority: High Current Visit: Yes Onset Date: 07/16/20 Annotation/Comment:: Right-sided pyelonephritis. E.Coli, susceptible to Rocephin which he has been receiving since admission. E.Coli noted in blood culture. Note history of mild BPH, including by exam in ER. Despite history as above patient did urinate prior to arrival to the emergency room with initial bladder ultrasound showing 185 cc of urine with subsequent bladder ultrasound after urination in the emergency showing only 10 cc. Therefore no significant urinary retention. Note decompensated AODM secondary to this infection with high fever, etc.. Mild leukocytosis with normal lactic acid level and no clinical evidence of sepsis, however note positive blood cultures as above. (2) Anemia SNOMED Code(s): 960553285 Code(s): D64.9 - ANEMIA, UNSPECIFIED Status: Acute Priority: High Current Visit: Yes Onset Date: 07/16/20 Qualifiers: Anemia type: due to chronic kidney disease Chronic kidney disease stage: stage 3 (moderate) Annotation/Comment:: Etiology of the patient's anemia is multifactorial including probable diabetic nephropathy, newly diagnosed folic acid deficiency, and previously known iron deficiency. Note that patient's iron levels were decreased on 07/18 with elevated vitamin B12 level and ferritin level at that time. Note hypoalbuminemia. Iron sulfate reinitiated on 07/20 with previous initiation of folic acid therapy. Close follow-up by regular provider after discharge, including recommended folic acid level, TIBC panel, and ferritin level in about 4 weeks. Possible GI work-up as above. Peripheral heral smear/retic count was ordered but these are still pending secondary to these evaluations been send out procedures. s. Note negative Hemoccult in the emergency room. Suspect additional previous diluational effect from antibioti cs/IV NS, however blood transfusion of 2 units of packed red blood cells were required on 07/19 with improved hemoglobin of 9.2 on 07/20 and no complications from his transfusion. (3) D-dimer, elevated SNOMED Code(s): 437688645 Code(s): R79.89 - OTHER SPECIFIED ABNORMAL FINDINGS OF BLOOD CHEMISTRY Status: Acute Priority: High Current Visit: Yes Onset Date: 07/16/20 Annotation/Comment:: Note negative CTA of the chest and venous Doppler studies of the lower extremities on 07/16/2020. No clinical evidence of DVT or PE. Initially I did not initiate Lovenox therapy on admission secondary to moderate anemia at that time. [facility] physician did initiate low-dose subcu Lovenox therapy as DVT prophylaxis, however note subsequent development of progressive anemia requiring blood transfusion as below. Lovenox discontinued on 07/20/2020 with patient very active at this time. No direct evidence of acute GI bleed, etc., however further work-up of his anemia on an outpatient basis, including possible EGD, colonoscopy, etc. may be advisable. D-dimer elevation likely secondary to current pyelonephritis with this to be repeated prior to discharge. Close follow-up by his regular providers. (4) Sepsis SNOMED Code(s): 93938563 Code(s): A41.9 - SEPSIS, UNSPECIFIED ORGANISM Status: Acute Priority: High Current Visit: Yes Onset Date: 07/16/20 Qualifiers: Sepsis type: Escherichia coli Sepsis acute organ dysfunction status: without acute organ dysfunction Qualified Code(s): A41.51 - Sepsis due to Escherichia coli [E. coli] Annotation/Comment:: Urosepsis as above. Augmentin therapy has been ordered for outpatient therapy secondary to pharmacies being closed on the weekend. Extended hospitalization secondary to required IV antibiotics with close follow- up by regular provider. (5) Diabetes mellitus SNOMED Code(s): 34152492 Code(s): E11.9 - TYPE 2 DIABETES MELLITUS WITHOUT COMPLICATIONS Status: Chronic Priority: Medium Current Visit: Yes Qualifiers: Diabetes mellitus type: type 2 Diabetes mellitus buttermaker continuous churn insulin use: without jail use Diabetes mellitus complication status: with ophthalmic complications Diabetes mellitus complication detail: with diabetic retinopathy Diabetic retinopathy severity: with unspecified retinopathy severity Diabetes mellitus macular edema: without macular edema Laterality: unspecified laterality Qualified Code(s): E11.319 - Type 2 diabetes mellitus with unspecified diabetic retinopathy without macular edema Annotation/Comment:: Persistently elevated blood sugars throughout earlier portions of this hospitalization secondary to his current infection with sliding scale and affect. Venous blood sugar improved on 07/20. Note that patient's Metformin had been held shortly after admission secondary to the CTA of the chest with reinitiation of this therapy on 07/20. Continue to observe his Accu- Cheks closely with continuation of sliding scale for now. Note glycosylated hemoglobin of 8.5% during this hospitalization with close observation by his regular provider and consideration of initiation of antibiotic therapy at time of his follow-up visit. Note significantly elevated Accu-Chek by the clinical psychology teacher of 417 mg percent prior to arrival to our emergency room. The patient has not been taking his Accu-Cheks at home with compliance with at least twice daily Accu-Cheks after discharge. Note previous history of diabetic retinopathy. Close follow-up by regular provider discharge with recommended repeat glycosylated hemoglobin in 3 months. (6) Hypertension SNOMED Code(s): 70834134 Code(s): I10 - ESSENTIAL (PRIMARY) HYPERTENSION Status: Chronic Priority: Medium Current Visit: Yes Qualifiers: Hypertension type: essential hypertension Qualified Code(s): I10 - Essential (primary) hypertension Annotation/Comment:: Blood pressures under good control in the emergency room, although somewhat variable during this hospitalization, including on 07/20. Continue to observe closely, including by his regular provider at discharge. The patient is already on an angiotensin II receptor rosa maria. - Problem List Review Problem List Initiated/Reviewed/Updated: Yes - Assessment Assessment:: as above - Plan Plan:: Discharge to home today with oral antibiotics.
--- NOTE | 2020-07-21 10:43 | PCM.DCSUM1 ---
Discharge Summary - Hospital Course Free Text/Narrative:: Patient is doing very well. No fever. No shortness of breath or cough. No chest pain or tightness. No abdominal pain, nausea, vomiting or diarrhea. States he feels better than he did prior to becoming ill. Hemoglobin is much improved after transfusion. Sepsis appears resolved. No urinary symptoms. Diagnosis: Stroke: No - Discharge Data Discharge Date: 07/21/20 Discharge Disposition: Home, Self-Care 01 Condition: Good - Referral to Home Health Primary Care Physician: Melody Mack PA-C - Discharge Diagnosis/Problem(s) (1) Pyelonephritis SNOMED Code(s): 94135741 ICD Code: N12 - TUBULO-INTERSTITIAL NEPHRITIS, NOT SPCF ACUTE OR CHRONIC Status: Acute Priority: High Current Visit: Yes Onset Date: 07/16/20 Problem Details: Right-sided pyelonephritis. E.Coli, susceptible to Rocephin which he has been receiving since admission. E.Coli noted in blood culture. Note history of mild BPH, including by exam in ER. Despite history as above patient did urinate prior to arrival to the emergency room with initial bladder ultrasound showing 185 cc of urine with subsequent bladder ultrasound after urination in the emergency showing only 10 cc. Therefore no significant urinary retention. Note decompensated AODM secondary to this infection with high fever, etc.. Mild leukocytosis with normal lactic acid level and no clinical evidence of sepsis, however note positive blood cultures as above. (2) Anemia SNOMED Code(s): 404923846 ICD Code: D64.9 - ANEMIA, UNSPECIFIED Status: Acute Priority: High Current Visit: Yes Onset Date: 07/16/20 Problem Details: Etiology of the patient's anemia is multifactorial including probable diabetic nephropathy, newly diagnosed folic acid deficiency, and previously known iron deficiency. Note that patient's iron levels were decreased on 07/18 with elevated vitamin B12 level and ferritin level at that time. Note hypoalbuminemia. Iron sulfate reinitiated on 07/20 with previous initiation of folic acid therapy. Close follow-up by regular provider after discharge, including recommended folic acid level, TIBC panel, and ferritin level in about 4 weeks. Possible GI work-up as above. Peripheral heral smear/retic count was ordered but these are still pending secondary to these evaluations been send out procedures. s. Note ne gative Hemoccult in the emergency room. Suspect additional previous diluational effect from antibiotics/IV NS, however blood transfusion of 2 units of packed red blood cells were required on 07/19 with improved hemoglobin of 9.2 on 07/20 and no complications from his transfusion. Qualifiers: Anemia type: due to chronic kidney disease Chronic kidney disease stage: stage 3 (moderate) (3) D-dimer, elevated SNOMED Code(s): 133210542 ICD Code: R79.89 - OTHER SPECIFIED ABNORMAL FINDINGS OF BLOOD CHEMISTRY Status: Acute Priority: High Current Visit: Yes Onset Date: 07/16/20 Problem Details: Note negative CTA of the chest and venous Doppler studies of the lower extremities on 07/16/2020. No clinical evidence of DVT or PE. Initially I did not initiate Lovenox therapy on admission secondary to moderate anemia at that time. [facility] physician did initiate low-dose subcu Lovenox therapy as DVT prophylaxis, however note subsequent development of progressive anemia requiring blood transfusion as below. Lovenox discontinued on 07/20/2020 with patient very active at this time. No direct evidence of acute GI bleed, etc., however further work-up of his anemia on an outpatient basis, including possible EGD, colonoscopy, etc. may be advisable. D-dimer elevation likely secondary to current pyelonephritis with this to be repeated prior to discharge. Close follow-up by his regular providers. (4) Sepsis SNOMED Code(s): 23731943 ICD Code: A41.9 - SEPSIS, UNSPECIFIED ORGANISM Status: Acute Priority: High Current Visit: Yes Onset Date: 07/16/20 Problem Details: Urosepsis as above. Augmentin therapy has been ordered for outpatient therapy secondary to pharmacies being closed on the weekend. Extended hospitalization secondary to required IV antibiotics with close follow-up by regular provider. Qualifiers: Sepsis type: Escherichia coli Sepsis acute organ dysfunction status: without acute organ dysfunction Qualified Code(s): A41.51 - Sepsis due to Escherichia coli [E. coli] (5) Diabetes mellitus SNOMED Code(s): 88132519 ICD Code: E11.9 - TYPE 2 DIABETES MELLITUS WITHOUT COMPLICATIONS Status: Chronic Priority: Medium Current Visit: Yes Problem Details: Persistently elevated blood sugars throughout earlier portions of this hospitalization secondary to his current infection with sliding scale and affect. Venous blood sugar improved on 07/20. Note that patient's Metformin had been held shortly after admission secondary to the CTA of the chest with reinitiation of this therapy on 07/20. Continue to observe his Accu-Cheks closely with continuation of sliding scale for now. Note glycosylated hemoglobin of 8.5% during this hospitalization with close observation by his regular provider and consideration of initiation of antibiotic therapy at time of his follow-up visit. Note significantly elevated Accu-Chek by the auto parts delivery driver of 417 mg percent prior to arrival to our emergency room. The patient has not been taking his Accu-Cheks at home with compliance with at least twice daily Accu-Cheks after discharge. Note previous history of diabetic retinopathy. Close follow-up by regular provider discharge with recommended repeat glycosylated hemoglobin in 3 months. Qualifiers: Diabetes mellitus type: type 2 Diabetes mellitus detention insulin use: without loader malt house use Diabetes mellitus complication status: with ophthalmic complications Diabetes mellitus complication detail: with diabetic retinopathy Diabetic retinopathy severity: with unspecified retinopathy severity Diabetes mellitus macular edema: without macular edema Laterality: unspecified laterality Qualified Code(s): E11.319 - Type 2 diabetes mellitus with unspecified diabetic retinopathy without macular edema (6) Hypertension SNOMED Code(s): 51783977 ICD Code: I10 - ESSENTIAL (PRIMARY) HYPERTENSION Status: Chronic Priority: Medium Current Visit: Yes Problem Details: Blood pressures under good control in the emergency room, although somewhat variable during this hospitalization, including on 07/20. Continue to observe closely, including by his regular provider at discharge. The patient is already on an angiotensin II receptor rosa maria. Qualifiers: Hypertension type: essential hypertension Qualified Code(s): I10 - Essential (primary) hypertension - Patient Instructions Diet: Diabetic Diet Activity: As Tolerated Driving: May Drive Today Showering/Bathing: May Shower - Discharge Plan *PRESCRIPTION DRUG MONITORING PROGRAM REVIEWED*: Not Applicable *COPY OF PRESCRIPTION DRUG MONITORING REPORT IN PATIENT KARAN: Not Applicable Home Medications: Home Meds Aspirin [Adult Low Dose Aspirin EC] 81 mg PO DAILY 01/18/20 [History] Blood Sugar Diagnostic [Blood Glucose Test Strip] 1 each MC ASDIRECTED 01/18/20 [History] Blood-Glucose Meter [Blood Glucose Monitoring] 1 each ASDIRECTED 01/18/20 [ History] Cinnamon Bark [Cinnamon] 500 mg PO BID 01/18/20 [History] FLUoxetine [PROzac] 20 mg PO DAILY 01/18/20 [History] L.acidoph,Paracasei, B.lactis [Probiotic] 1 each PO DAILY 01/18/20 [History] Lancets 1 each MC ASDIRECTED 01/18/20 [History] Lovastatin [Mevacor] 40 mg PO BEDTIME 01/18/20 [History] Omeprazole 20 mg PO DAILY 01/18/20 [History] metFORMIN [Glucophage] 500 mg PO BIDMEALS 01/18/20 [History] Cetirizine HCl [Zyrtec] 10 mg PO BEDTIME 07/16/20 [History] Glimepiride 2 mg PO BIDMEALS 07/16/20 [History] Losartan [Cozaar] 50 mg PO DAILY 07/16/20 [History] amLODIPine [Norvasc] 5 mg PO DAILY 07/16/20 [History] hydrOXYzine HCL [Atarax] 25 mg PO Q6H PRN 07/16/20 [History] Forms: ED Department Discharge Referrals: Melody Mack, [facility] [Primary Care Provider] - - Discharge Summary/Plan Comment DC Time >30 min.: Yes Discharge Summary/Plan Comment: Discharge to home today. We will start Augmentin as previously prescribed. Discussed importance of monitoring blood sugars and take good care of his diabetes. Follow-up in clinic in 7 to 10 days. - Patient Data Vitals - Most Recent: Last Vital Signs Temp 36.8 C 07/21/20 07:51 Pulse 67 07/21/20 07:51 Resp 17 07/21/20 07:51 BP 130/64 07/21/20 07:51 Pulse Ox 97 07/21/20 07:51 Weight - Most Recent: 79.107 kg I&O - Last 24 hours: Intake & Output 07/20/20 07/21/20 07/21/20 22:59 06:59 14:59 Intake Total 800 100 420 Balance 800 100 420 Lab Results - Last 24 hrs: Laboratory Results - last 24 hr 07/19/20 07/20/20 07/20/20 Range/Units 07:19 11:51 12:01 WBC (4.0-10.2) K/uL RBC (4.33-5.41) M/uL Hgb (13.1-16.8) g/dL Hct (39.0-49.0) % MCV (84.0-98.0) fL MCH (28.2-33.3) pg MCHC (31.7-36.0) g/dL RDW (11.2-14.1) % Plt Count (150-350) K/uL Neut % (Auto) (45.0-80.0) % Lymph % (Auto) (10.0-50.0) % Kleberg % (Auto) (2.0-14.0) % Eos % (Auto) (0.0-5.0) % Baso % (Auto) (0.0-2.0) % Neut # (Auto) (1.40-7.00) K/uL Lymph # (Auto) (0.50-3.50) K/uL Kleberg # (Auto) (0.00-1.00) K/uL Eos # (Auto) (0.00-0.50) K/uL Baso # (Auto) (0.00-0.20) K/uL Neutrophils % (Manual) 71 % Band Neuts % (Manual) 10 % Lymphocytes % (Manual) 13 % Monocytes % (Manual) 4 % Eosinophils % (Manual) 2 % Basophils % (Manual) 0 % Neutrophils # (Manual) 3.69 (1.80-7.00) x10-3 ul Band Neutrophils # Man 0.52 (0.00-0.70) x10-3 ul Lymphocytes # (Manual) 0.68 L (1.00-4.80) x10-3 ul Monocytes # (Manual) 0.21 (0.00-0.80) x10-3 ul Eosinophils # (Manual) 0.10 (0.00-0.45) x10-3 ul Basophils # (Manual) 0.00 (0.00-0.20) x10-3 ul RBC/WBC/PLT Morphology Abnormal (Normal) Toxic Granulation Seen (Absent) Platelet Estimate Adequate Smear Path Review Path rpt PT (9.5-12.0) SEC INR APTT (24.5-32.8) SEC D-Dimer, Quantitative (0-400) ng/mL Sodium (136-145) mmol/L Potassium (3.5-5.1) mmol/L Chloride (98-107) mmol/L Carbon Dioxide (21.0-32.0) mmol/L BUN (7-18) mg/dL Creatinine (0.51-1.17) mg/dL Est Cr Clr Drug Dosing mL/min Estimated GFR (MDRD) mL/min Glucose (74-106) mg/dL POC Glucose 219 H 226 H (65-110) mg/dl Calcium (8.5-10.1) mg/dL Magnesium (1.8-2.4) mg/dL 07/20/20 07/20/20 07/21/20 Range/Units 16:30 20:21 07:43 WBC (4.0-10.2) K/uL RBC (4.33-5.41) M/uL Hgb (13.1-16.8) g/dL Hct (39.0-49.0) % MCV (84.0-98.0) fL MCH (28.2-33.3) pg MCHC (31.7-36.0) g/dL RDW (11.2-14.1) % Plt Count (150-350) K/uL Neut % (Auto) (45.0-80.0) % Lymph % (Auto) (10.0-50.0) % Kleberg % (Auto) (2.0-14.0) % Eos % (Auto) (0.0-5.0) % Baso % (Auto) (0.0-2.0) % Neut # (Auto) (1.40-7.00) K/uL Lymph # (Auto) (0.50-3.50) K/uL Kleberg # (Auto) (0.00-1.00) K/uL Eos # (Auto) (0.00-0.50) K/uL Baso # (Auto) (0.00-0.20) K/uL Neutrophils % (Manual) % Band Neuts % (Manual) % Lymphocytes % (Manual) % Monocytes % (Manual) % Eosinophils % (Manual) % Basophils % (Manual) % Neutrophils # (Manual) (1.80-7.00) x10-3 ul Band Neutrophils # Man (0.00-0.70) x10-3 ul Lymphocytes # (Manual) (1.00-4.80) x10-3 ul Monocytes # (Manual) (0.00-0.80) x10-3 ul Eosinophils # (Manual) (0.00-0.45) x10-3 ul Basophils # (Manual) (0.00-0.20) x10-3 ul RBC/WBC/PLT Morphology (Normal) Toxic Granulation (Absent) Platelet Estimate Smear Path Review PT (9.5-12.0) SEC INR APTT (24.5-32.8) SEC D-Dimer, Quantitative (0-400) ng/mL Sodium (136-145) mmol/L Potassium (3.5-5.1) mmol/L Chloride (98-107) mmol/L Carbon Dioxide (21.0-32.0) mmol/L BUN (7-18) mg/dL Creatinine (0.51-1.17) mg/dL Est Cr Clr Drug Dosing mL/min Estimated GFR (MDRD) mL/min Glucose (74-106) mg/dL POC Glucose 241 H 232 H 116 H (65-110) mg/dl Calcium (8.5-10.1) mg/dL Magnesium (1.8-2.4) mg/dL 07/21/20 07/21/20 07/21/20 Range/Units 07:45 07:45 07:45 WBC 5.1 (4.0-10.2) K/uL RBC 3.56 L (4.33-5.41) M/uL Hgb 10.2 L (13.1-16.8) g/dL Hct 31.7 L (39.0-49.0) % MCV 89.0 (84.0-98.0) fL MCH 28.7 (28.2-33.3) pg MCHC 32.2 (31.7-36.0) g/dL RDW 13.8 (11.2-14.1) % Plt Count 383 H (150-350) K/uL Neut % (Auto) 65.5 (45.0-80.0) % Lymph % (Auto) 20.6 (10.0-50.0) % Kleberg % (Auto) 10.1 (2.0-14.0) % Eos % (Auto) 3.4 (0.0-5.0) % Baso % (Auto) 0.4 (0.0-2.0) % Neut # (Auto) 3.31 (1.40-7.00) K/uL Lymph # (Auto) 1.04 (0.50-3.50) K/uL Kleberg # (Auto) 0.51 (0.00-1.00) K/uL Eos # (Auto) 0.17 (0.00-0.50) K/uL Baso # (Auto) 0.02 (0.00-0.20) K/uL Neutrophils % (Manual) % Band Neuts % (Manual) % Lymphocytes % (Manual) % Monocytes % (Manual) % Eosinophils % (Manual) % Basophils % (Manual) % Neutrophils # (Manual) (1.80-7.00) x10-3 ul Band Neutrophils # Man (0.00-0.70) x10-3 ul Lymphocytes # (Manual) (1.00-4.80) x10-3 ul Monocytes # (Manual) (0.00-0.80) x10-3 ul Eosinophils # (Manual) (0.00-0.45) x10-3 ul Basophils # (Manual) (0.00-0.20) x10-3 ul RBC/WBC/PLT Morphology (Normal) Toxic Granulation (Absent) Platelet Estimate Smear Path Review PT 11.6 (9.5-12.0) SEC INR 1.2 APTT 31.1 (24.5-32.8) SEC D-Dimer, Quantitative 2430 H (0-400) ng/mL Sodium (136-145) mmol/L Potassium (3.5-5.1) mmol/L Chloride (98-107) mmol/L Carbon Dioxide (21.0-32.0) mmol/L BUN (7-18) mg/dL Creatinine (0.51-1.17) mg/dL Est Cr Clr Drug Dosing mL/min Estimated GFR (MDRD) mL/min Glucose (74-106) mg/dL POC Glucose (65-110) mg/dl Calcium (8.5-10.1) mg/dL Magnesium (1.8-2.4) mg/dL 07/21/20 Range/Units 07:45 WBC (4.0-10.2) K/uL RBC (4.33-5.41) M/uL Hgb (13.1-16.8) g/dL Hct (39.0-49.0) % MCV (84.0-98.0) fL MCH (28.2-33.3) pg MCHC (31.7-36.0) g/dL RDW (11.2-14.1) % Plt Count (150-350) K/uL Neut % (Auto) (45.0-80.0) % Lymph % (Auto) (10.0-50.0) % Kleberg % (Auto) (2.0-14.0) % Eos % (Auto) (0.0-5.0) % Baso % (Auto) (0.0-2.0) % Neut # (Auto) (1.40-7.00) K/uL Lymph # (Auto) (0.50-3.50) K/uL Kleberg # (Auto) (0.00-1.00) K/uL Eos # (Auto) (0.00-0.50) K/uL Baso # (Auto) (0.00-0.20) K/uL Neutrophils % (Manual) % Band Neuts % (Manual) % Lymphocytes % (Manual) % Monocytes % (Manual) % Eosinophils % (Manual) % Basophils % (Manual) % Neutrophils # (Manual) (1.80-7.00) x10-3 ul Band Neutrophils # Man (0.00-0.70) x10-3 ul Lymphocytes # (Manual) (1.00-4.80) x10-3 ul Monocytes # (Manual) (0.00-0.80) x10-3 ul Eosinophils # (Manual) (0.00-0.45) x10-3 ul Basophils # (Manual) (0.00-0.20) x10-3 ul RBC/WBC/PLT Morphology (Normal) Toxic Granulation (Absent) Platelet Estimate Smear Path Review PT (9.5-12.0) SEC INR APTT (24.5-32.8) SEC D-Dimer, Quantitative (0-400) ng/mL Sodium 137 (136-145) mmol/L Potassium 4.4 (3.5-5.1) mmol/L Chloride 103 (98-107) mmol/L Carbon Dioxide 26.4 (21.0-32.0) mmol/L BUN 18 (7-18) mg/dL Creatinine 1.21 H (0.51-1.17) mg/dL Est Cr Clr Drug Dosing 56.98 mL/min Estimated GFR (MDRD) 59 mL/min Glucose 113 H (74-106) mg/dL POC Glucose (65-110) mg/dl Calcium 8.8 (8.5-10.1) mg/dL Magnesium 1.5 L (1.8-2.4) mg/dL TALIA Results - Last 24 hrs: Microbiology 07/16/20 06:00 Aerobic Blood Culture - Final Blood - Venous - Lab Draw NO GROWTH AFTER 5 DAYS Anaerobic Blood Culture - Final NO GROWTH AFTER 5 DAYS 07/16/20 05:52 Aerobic Blood Culture - Final Blood - Venous Escherichia Coli Anaerobic Blood Culture - Final NO GROWTH AFTER 5 DAYS Med Orders - Current: Current Medications Acetaminophen (Tylenol) 650 mg PO Q4H PRN PRN Reason: Pain Last Admin: 07/16/20 16:35 Dose: 650 mg Documented by: Amlodipine Besylate (Norvasc) 5 mg PO DAILY [facility] Last Admin: 07/21/20 07:38 Dose: 5 mg Documented by: Aspirin (Halfprin) 81 mg PO DAILY [facility] Last Admin: 07/21/20 07:38 Dose: 81 mg Documented by: Atorvastatin Calcium (Lipitor) 10 mg PO BEDTIME [facility] Last Admin: 07/20/20 20:15 Dose: 10 mg Documented by: Cetirizine HCl (Zyrtec) 10 mg PO BEDTIME [facility] Last Admin: 07/20/20 20:15 Dose: 10 mg Documented by: Dextrose/Water (Dextrose 50% In Water) 50 ml IV ASDIRECTED PRN PRN Reason: Hypoglycemia Ferrous Sulfate (Ferrous Sulfate) 325 mg PO BIDMEALS [facility] Last Admin: 07/21/20 07:38 Dose: 325 mg Documented by: Fluoxetine HCl (Prozac) 20 mg PO DAILY [facility] Last Admin: 07/21/20 07:38 Dose: 20 mg Documented by: Folic Acid (Folic Acid) 1 mg PO DAILY [facility] Last Admin: 07/21/20 07:38 Dose: 1 mg Documented by: Glimepiride (Amaryl) 2 mg PO BIDMEALS [facility] Last Admin: 07/21/20 07:38 Dose: 2 mg Documented by: Glucagon (Glucagen) 1 mg IM ASDIRECTED PRN PRN Reason: Hypoglycemia Hydroxyzine HCl (Atarax) 25 mg PO Q6H PRN PRN Reason: Itching Ceftriaxone Sodium 1 gm/ (Sodium Chloride) 100 mls @ 200 mls/hr IV Q12H [facility] Last Admin: 07/21/20 07:37 Dose: 200 mls/hr Documented by: Insulin Human Lispro (Humalog) 0 unit SUBCUT QIDACANDBED [facility]; Protocol Last Admin: 07/21/20 07:45 Dose: Not Given Documented by: Lactobacillus Rhamnosus (Culturelle) 1 cap PO DAILY [facility] Last Admin: 07/21/20 07:38 Dose: 1 cap Documented by: Losartan Potassium (Cozaar) 50 mg PO DAILY [facility] Last Admin: 07/21/20 07:38 Dose: 50 mg Documented by: Magnesium Oxide (Magnesium Oxide) 400 mg PO BID [facility] Last Admin: 07/21/20 07:38 Dose: 400 mg Documented by: Metformin HCl (Glucophage) 500 mg PO BIDMEALS [facility] Last Admin: 07/21/20 07:38 Dose: 500 mg Documented by: Ondansetron HCl (Zofran) 4 mg IVPUSH Q6H PRN PRN Reason: Nausea/Vomiting Last Admin: 07/16/20 12:39 Dose: 4 mg Documented by: Pantoprazole Sodium (Protonix Iv) 40 mg IVPUSH Q12H [facility] Last Admin: 07/21/20 07:37 Dose: 40 mg Documented by: Sodium Chloride (Saline Flush) 10 ml FLUSH ASDIRECTED PRN PRN Reason: Keep Vein Open Last Admin: 07/21/20 07:42 Dose: 10 ml Documented by: Sodium Chloride (Saline Flush) 10 ml FLUSH Q12HR [facility] Last Admin: 07/21/20 07:40 Dose: 10 ml Documented by: Temazepam (Restoril) 15 mg PO DAILY@2000 PRN PRN Reason: Insomnia Discontinued Medications Acetaminophen (Tylenol) 650 mg PO ONETIME ONE Stop: 07/16/20 05:45 Last Admin: 07/16/20 06:07 Dose: 650 mg Documented by: Enoxaparin Sodium (Lovenox) 40 mg SUBCUT Q24H [facility] Last Admin: 07/19/20 11:34 Dose: Not Given Documented by: Enoxaparin Sodium (Lovenox) 40 mg SUBCUT Q24H [facility] Last Admin: 07/20/20 09:37 Dose: Not Given Documented by: Famotidine (Pepcid) 40 mg IVPUSH ONETIME ONE Stop: 07/16/20 06:15 Last Admin: 07/16/20 06:23 Dose: 40 mg Documented by: Famotidine (Pepcid) 20 mg IVPUSH Q12H [facility] Last Admin: 07/17/20 20:26 Dose: Not Given Documented by: Furosemide (Lasix) 20 mg IVPUSH ONETIME ONE Stop: 07/18/20 08:12 Last Admin: 07/18/20 10:58 Dose: Not Given Documented by: Furosemide (Lasix) 20 mg IVPUSH ONETIME ONE Stop: 07/19/20 12:01 Last Admin: 07/19/20 12:16 Dose: 20 mg Documented by: Lactated Ringer's (Ringers, Lactated) 1,000 mls @ 999 mls/hr IV .BOLUS ONE Stop: 07/16/20 07:03 Last Admin: 07/16/20 06:04 Dose: 999 mls/hr Documented by: Ceftriaxone Sodium 1 gm/ (Sodium Chloride) 100 mls @ 200 mls/hr IV ONETIME ONE Stop: 07/16/20 07:28 Last Admin: 07/16/20 07:10 Dose: 200 mls/hr Documented by: Sodium Chloride (Sodium Chloride 3%) 500 mls @ 50 mls/hr IV ASDIRECTED [facility] Last Admin: 07/16/20 11:42 Dose: 50 mls/hr Documented by: Magnesium Sulfate 4 gm/ Premix 100 mls @ 25 mls/hr IV ONETIME ONE Stop: 07/16/20 14:14 Last Admin: 07/16/20 11:42 Dose: 25 mls/hr Documented by: Sodium Chloride (Sodium Chloride 3%) 500 mls @ 35 mls/hr IV ASDIRECTED [facility] Last Admin: 07/19/20 04:20 Dose: 35 mls/hr Documented by: Insulin Human Lispro (Humalog) 0 unit SUBCUT BIDAC [facility]; Protocol Iopamidol (Isovue-370 (76%)) Confirm Administered Dose 100 ml .ROUTE .STK-MED ONE Stop: 07/16/20 06:57 Last Admin: 07/16/20 15:41 Dose: Not Given Documented by: Iopamidol (Isovue-370 (76%)) 100 ml IVPUSH ONETIME STA Stop: 07/16/20 06:55 Last Admin: 07/16/20 08:35 Dose: 100 ml Documented by: Pantoprazole Sodium (Protonix Iv) 40 mg IVPUSH ONETIME ONE Stop: 07/16/20 06:15 Last Admin: 07/16/20 06:23 Dose: 40 mg Documented by:
== END 2020-07-21 12:15 | disposition home or self-care (01) | DRG 872 ==
LOC: LL.ED 04:57 → LL.MS 08:41 → UNDOADMIN 08:41 → LL.MS 10:04
PROVIDERS: ADMIT Family Medicine; ATTEND Family Medicine
DX: A41.51 Sepsis due to Escherichia coli [E. coli] (principal); N12 Tubulo-interstitial nephritis, not specified as acute or chronic; I44.2 Atrioventricular block, complete; S32.010A Wedge compression fracture of first lumbar vertebra, initial encounter for closed fracture; D63.1 Anemia in chronic kidney disease; N18.30 Chronic kidney disease, stage 3 unspecified; R79.89 Other specified abnormal findings of blood chemistry; E11.319 Type 2 diabetes mellitus with unspecified diabetic retinopathy without macular edema; H91.90 Unspecified hearing loss, unspecified ear; H54.7 Unspecified visual loss; J30.9 Allergic rhinitis, unspecified; H91.13 Presbycusis, bilateral; I12.9 Hypertensive chronic kidney disease with stage 1 through stage 4 chronic kidney disease, or unspecified chronic kidney disease; E78.00 Pure hypercholesterolemia, unspecified; I49.9 Cardiac arrhythmia, unspecified; K21.9 Gastro-esophageal reflux disease without esophagitis; K22.70 Barrett's esophagus without dysplasia; M19.90 Unspecified osteoarthritis, unspecified site; G89.29 Other chronic pain; M54.9 Dorsalgia, unspecified; M54.2 Cervicalgia; F41.9 Anxiety disorder, unspecified; F32.9 Major depressive disorder, single episode, unspecified; E11.21 Type 2 diabetes mellitus with diabetic nephropathy; E11.22 Type 2 diabetes mellitus with diabetic chronic kidney disease; E78.5 Hyperlipidemia, unspecified; E83.51 Hypocalcemia; E83.42 Hypomagnesemia; M89.49 Other hypertrophic osteoarthropathy, multiple sites; Z79.82 Long term (current) use of aspirin; Z79.899 Other long term (current) drug therapy; Z79.84 Long term (current) use of oral hypoglycemic drugs; Z88.8 Allergy status to other drugs, medicaments and biological substances; Z95.0 Presence of cardiac pacemaker; Z85.828 Personal history of other malignant neoplasm of skin; Z98.41 Cataract extraction status, right eye; Z98.42 Cataract extraction status, left eye; Z98.890 Other specified postprocedural states; Z20.828 Contact with and (suspected) exposure to other viral communicable diseases
CPT/HCPCS: 36415; 36430; 51798; 71045; 71275; 80048; 80053; 81001; 82272; 82607; 82728; 82746; 82962; 83036; 83540; 83550; 83605; 83735; 85008; 85025; 85379; 85610; 85730; 86850; 86900; 86901; 86920; 86922; 87040; 87077; 87086; 87088; 87186; 87804; 93970; 96365; 96375; 99285-25; A9270-GY; C9113; J0696; J1815-GY; J1940; J2405; J3475; J3490; J7040; J7120; P9016; Q9967; U0002

== ENCOUNTER 2020-11-08 09:31 | Emergency (ER) | payer MEDICARE, BC ==
[2020-11-08] MEDS ORDERED: Sodium Chloride 0.9% 10 ML Syringe FLUSH PRN (09:44)
--- NOTE | 2020-11-08 10:45 | EDM.PDOC ---
ED HPI GENERAL MEDICAL PROBLEM - General Chief Complaint: General Stated Complaint: low sodium Time Seen by Provider: 11/08/20 09:40 Source of Information: Reports: Patient History Limitations: Reports: No Limitations - History of Present Illness INITIAL COMMENTS - FREE TEXT/NARRATIVE: Patient comes emergency department today from home with concerns of low sodium and a urinary tract infection. This patient was seen in the primary care clinic yesterday for concerns of some mild leg weakness just not feeling well similar symptoms that he has had with a urinary tract infection in the past. He had a urinalysis completed at the primary care clinic that showed a nitrite positive urine. Urine culture is pending. He was started on Keflex 1 tab p.o. 4 times daily for 7 days. He does have urology follow-up next week as he has had 3 urinary tract infections in the last 6 months. He did have some laboratory evaluation drawn yesterday that noted that he had a quite low sodium he was contacted during the night by Deon and told to come to the emergency department. He did not feel that he needed to come emergently in the night because he actually was starting to feel better and came here today for recheck. He really feels quite well other than just a little bit of weakness to his legs he has been urinating quite a bit more frequently with some dysuria. No fever no chills. No chest pain no shortness of breath or difficulty breathing. No cough or congestion. No palpitations syncope ago lightheadedness or dizziness. No abdominal pain nausea or vomiting. No flank pain. He has had dysuria and urinary frequency although no hematuria. No black or tarry stools or diarrhea. In the last 3 months he has had quite a change in his diet where he is really focusing on controlling his diabetes as well as his high blood pressure. He does not add any salt to food and does not place it on his food when cooking either. He is trying to eat primarily low sodium foods at home. He has been drinking quite a bit of water over the last week because he had concerns of a urinary tract infection and he increased his water intake quite aggressively to try to help flush out his urinary tract infection. He denies any confusion headache seizures paresthesias or change in the functionality of his upper or lower extremities. He has been able to ambulate without difficulty. - Related Data Allergies Allergy/AdvReac Type Severity Reaction Status Date / Time lisinopril Allergy Swollen Verified 11/08/20 09:44 Tongue Home Meds: Home Meds Aspirin [Adult Low Dose Aspirin EC] 81 mg PO DAILY 01/18/20 [History] Blood Sugar Diagnostic [Blood Glucose Test Strip] 1 each ASDIRECTED 01/18/20 [History] Blood-Glucose Meter [Blood Glucose Monitoring] 1 each ASDIRECTED 01/18/20 [History] Cinnamon Bark [Cinnamon] 500 mg PO BID 01/18/20 [History] FLUoxetine [PROzac] 20 mg PO DAILY 01/18/20 [History] L.acidoph,Paracasei, B.lactis [Probiotic] 1 each PO DAILY 01/18/20 [History] Lancets 1 each ASDIRECTED 01/18/20 [History] Lovastatin [Mevacor] 40 mg PO BEDTIME 01/18/20 [History] Omeprazole 20 mg PO DAILY 01/18/20 [History] metFORMIN [Glucophage] 500 mg PO BIDMEALS 01/18/20 [History] Cetirizine HCl [Zyrtec] 10 mg PO BEDTIME 07/16/20 [History] Glimepiride 2 mg PO BIDMEALS 07/16/20 [History] Losartan [Cozaar] 50 mg PO DAILY 07/16/20 [History] amLODIPine [Norvasc] 5 mg PO DAILY 07/16/20 [History] hydrOXYzine HCL [hydrOXYzine] 25 mg PO Q6H PRN 07/16/20 [History] Ferrous Sulfate 325 mg PO BIDMEALS tablet 07/21/20 [Rx] Past Medical History HEENT History: Reports: Allergic Rhinitis, Cataract, Hard of Hearing, Impaired Vision, Otitis Media, Sinusitis, Other (See Below) Other HEENT History: Allergic rhinitis/sinusitis. Patient wears glasses and has a history of diabetic retinopathy. Mild to moderate bilateral presbycusis with no current therapy. Frequent otitis media as a child with no PE tubes. Cardiovascular History: Reports: Arrhythmia, High Cholesterol, Hypertension, Pacemaker, Other (See Below) Other Cardiovascular History: Third-degree AV block with distant pacemaker as below. Respiratory History: Reports: None, Intubation, Previous Gastrointestinal History: Reports: None, GERD, Other (See Below) Other Gastrointestinal History: Barretts esophagus with low grade dysplasia Genitourinary History: Reports: None, BPH Musculoskeletal History: Reports: Arthritis, Back Pain, Chronic, Fracture, Neck Pain, Chronic, Osteoarthritis, Other (See Below) Other Musculoskeletal History: Diffuse degenerative disc disease. Right ankle fracture in the 1980s. Neurological History: Reports: None Psychiatric History: Reports: Addiction, Anxiety, Depression, Other (See Below) Other Psychiatric History: Patient denies previous addiction despite above record. 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 Dermatologic History: Reports: Other (See Below) Other Dermatologic History: Diabetic left foot ulcer with last debridement on 04/08/2004 - Infectious Disease History Infectious Disease History: Reports: None, Measles - Past Surgical History Head Surgeries/Procedures: Reports: None HEENT Surgical History: Reports: Cataract Surgery, Laser Surgery, Oral Surgery, Other (See Below) Other HEENT Surgeries/Procedures: Bilateral cataract surgery. YAG treatment of the eyes secondary to diabetic retinopathy. Cardiovascular Surgical History: Reports: Pacer, Other (See Below) Other Cardiovascular Surgeries/Procedures: Pacemaker placement in about 2005. Respiratory Surgical History: Reports: None GI Surgical History: Reports: Colonoscopy, EGD, Other (See Below) Other GI Surgeries/Procedures: EGD with biopsy on 01/19/2020. Colonoscopy in about 2011. Male Surgical History: Reports: None Endocrine Surgical History: Reports: None Neurological Surgical History: Reports: C-Spine, Other (See Below) Other Neurological Surgeries/Procedures: Bone spur excision from C-spine in the . Oncologic Surgical History: Reports: None Dermatological Surgical History: Reports: Other (See Below) Social & Family History - Family History HEENT: Reports: None Cardiac: Reports: CAD, IL, Other (See Below) Other Cardiac Family History: Father with fatal IL at age 64. Paternal aunt with fatal IL in her 70s. Respiratory: Reports: None GI: Reports: None, Pancreatitis : Reports: None OBGYN: Reports: None Musculoskeletal: Reports: Arthritis, Osteoporosis, Other (See Below) Other Musculoskeletal Family History: Sister with arthritis. Neurological: Reports: None Psychiatric: Reports: None Endocrine/Metabolic: Reports: None Hematologic: Reports: None Immunologic: Reports: None Dermatologic: Reports: None Oncologic: Reports: Hodgkin's Lymphoma, Other (See Below) Other Oncologic Family History: Paternal uncle with fatal Hodgkin's disease. Brother with lung cancer with history of tobacco use. Brother with unknown type of abdominal cancer. - Caffeine Use Caffeine Use: Reports: Coffee (2 cups/day), Soda (2 sodas per week). Denies: Energy Drinks, Tea - Living Situation & Occupation Living situation: Reports: (1979, 2 children), with Family () Occupation: Retired (Retired materials inspector at age 64) ED ROS GENERAL - Review of Systems Review Of Systems: Comprehensive ROS is negative, except as noted in HPI. ED EXAM, GENERAL - Physical Exam Exam: See Below Exam Limited By: No Limitations General Appearance: Alert, WD/WN, No Apparent Distress Ears: Normal External Exam, Normal TMs Nose: Normal Inspection Throat/Mouth: Normal Inspection Head: Atraumatic, Normocephalic Neck: Normal Inspection, Supple, Non-Tender, Full Range of Motion Respiratory/Chest: No Respiratory Distress, Lungs Clear, Normal Breath Sounds, No Accessory Muscle Use, Chest Non-Tender Cardiovascular: Normal Peripheral Pulses, Regular Rate, Rhythm Peripheral Pulses: 2+: Brachial (L), Brachial (R), Posterior Tibial (L), Posterior Tibial (R), Dorsalis Pedis (L), Dorsalis Pedis (R) GI/Abdominal: Normal Bowel Sounds, Soft, Non-Tender, No Abnormal Bruit (Male) Exam: Deferred Rectal (Males) Exam: Deferred Back Exam: Normal Inspection, Full Range of Motion Extremities: Normal Inspection, Normal Range of Motion, Non-Tender, No Pedal Edema, Normal Capillary Refill Neurological: Alert, Oriented, CN II-XII Intact, Normal Cognition, Normal Gait, Normal Reflexes, No Motor/Sensory Deficits Psychiatric: Normal Affect, Normal Mood Skin Exam: Warm, Dry, Intact, Normal Color, No Rash Course - Vital Signs Last Recorded V/S: Last Vital Signs Temp 97 F 11/08/20 09:35 Pulse 60 11/08/20 13:09 Resp 10 L 11/08/20 13:09 BP 130/59 L 11/08/20 13:09 Pulse Ox 100 11/08/20 13:09 - Orders/Labs/Meds Orders: Active Orders 24 hr Category Date Time Status EKG Documentation Completion [RC] STAT Care 11/08/20 09:44 Active Peripheral IV Care [RC] . DIRECTED Care 11/08/20 09:44 Active CULTURE BLOOD [BC] Stat Lab 11/08/20 09:48 Received CULTURE BLOOD [BC] Stat Lab 11/08/20 09:56 Received CULTURE URINE [RM] Stat Lab 11/08/20 11:35 Received Sodium Chloride 0.9% [Normal Saline] 1,000 ml Med 11/08/20 11:00 Active IV ASDIRECTED Sodium Chloride 0.9% [Saline Flush] Med 11/08/20 09:44 Active 10 ml FLUSH ASDIRECTED PRN Blood Culture x2 Reflex Set [OM.PC] Stat Oth 11/08/20 09:44 Ordered Peripheral IV Insertion Adult [OM.PC] Stat Oth 11/08/20 09:44 Ordered Medication Orders Sodium Chloride (Normal Saline) 1,000 mls @ 125 mls/hr IV ASDIRECTED RYAN Last Admin: 11/08/20 11:01 Dose: 125 mls/hr Documented by: LIEN Sodium Chloride (Sodium Chloride 0.9% 10 Ml Syringe) 10 ml FLUSH ASDIRECTED PRN PRN Reason: Keep Vein Open Last Admin: 11/08/20 11:04 Dose: 10 ml Documented by: LIEN Labs: Laboratory Tests 11/08/20 11/08/20 11/08/20 Range/Units 09:56 09:56 09:56 WBC 5.5 (4.0-10.2) K/uL RBC 3.09 L (4.33-5.41) M/uL Hgb 9.7 L (13.1-16.8) g/dL Hct 27.3 L (39.0-49.0) % MCV 88.3 (84.0-98.0) fL MCH 31.4 (28.2-33.3) pg MCHC 35.5 (31.7-36.0) g/dL RDW 13.3 (11.2-14.1) % Plt Count 296 D (150-350) K/uL Neut % (Auto) 77.5 (45.0-80.0) % Lymph % (Auto) 10.9 (10.0-50.0) % [facility] % (Auto) 9.8 (2.0-14.0) % Eos % (Auto) 1.3 (0.0-5.0) % Baso % (Auto) 0.5 (0.0-2.0) % Neut # (Auto) 4.25 (1.40-7.00) K/uL Lymph # (Auto) 0.60 (0.50-3.50) K/uL [facility] # (Auto) 0.54 (0.00-1.00) K/uL Eos # (Auto) 0.07 (0.00-0.50) K/uL Baso # (Auto) 0.03 (0.00-0.20) K/uL Sodium 124 L* D (136-145) mmol/L Potassium 4.8 (3.5-5.1) mmol/L Chloride 91 L D (98-107) mmol/L Carbon Dioxide 22.9 (21.0-32.0) mmol/L BUN 14 (7-18) mg/dL Creatinine 1.23 H (0.51-1.17) mg/dL Est Cr Clr Drug Dosing 56.05 mL/min Estimated GFR (MDRD) 58 mL/min Glucose 144 H (70-99) mg/dL Lactic Acid 0.6 (0.4-2.0) mmol/L Calcium 8.7 (8.5-10.1) mg/dL Total Bilirubin 0.5 (0.2-1.0) mg/dL AST 19 (15-37) U/L ALT 21 (12-78) U/L Alkaline Phosphatase 56 (46-116) IU/L Troponin I 0.000 (0.000-0.056) ng/mL C-Reactive Protein 10.5 H (<=0.9) mg/dL Total Protein 7.0 (6.4-8.2) g/dL Albumin 3.2 L (3.4-5.0) g/dL Specimen Type Urine Color Urine Appearance Urine pH (5.0-9.0) Ur Specific [place] (1.005-1.030) Urine Protein (NEGATIVE) mg/dL Urine Glucose (UA) (NEGATIVE) mg/dL Urine Ketones (NEGATIVE) mg/dL Urine Occult Blood (NEGATIVE) Urine Nitrite (NEGATIVE) Urine Bilirubin (NEGATIVE) Urine Urobilinogen (0.2-1.0) E.U./dL Ur Leukocyte Esterase (NEGATIVE) Urine RBC /HPF Urine WBC /HPF Ur Epithelial Cells /LPF Urine Bacteria (NONE TO FEW) /HPF 11/08/20 11/08/20 Range/Units 11:35 12:54 WBC (4.0-10.2) K/uL RBC (4.33-5.41) M/uL Hgb (13.1-16.8) g/dL Hct (39.0-49.0) % MCV (84.0-98.0) fL MCH (28.2-33.3) pg MCHC (31.7-36.0) g/dL RDW (11.2-14.1) % Plt Count (150-350) K/uL Neut % (Auto) (45.0-80.0) % Lymph % (Auto) (10.0-50.0) % [facility] % (Auto) (2.0-14.0) % Eos % (Auto) (0.0-5.0) % Baso % (Auto) (0.0-2.0) % Neut # (Auto) (1.40-7.00) K/uL Lymph # (Auto) (0.50-3.50) K/uL [facility] # (Auto) (0.00-1.00) K/uL Eos # (Auto) (0.00-0.50) K/uL Baso # (Auto) (0.00-0.20) K/uL Sodium 127 L (136-145) mmol/L Potassium 5.0 (3.5-5.1) mmol/L Chloride 94 L (98-107) mmol/L Carbon Dioxide 23.8 (21.0-32.0) mmol/L BUN 13 (7-18) mg/dL Creatinine 1.17 (0.51-1.17) mg/dL Est Cr Clr Drug Dosing 58.93 mL/min Estimated GFR (MDRD) > 60 mL/min Glucose 113 H (70-99) mg/dL Lactic Acid (0.4-2.0) mmol/L Calcium 8.7 (8.5-10.1) mg/dL Total Bilirubin (0.2-1.0) mg/dL AST (15-37) U/L ALT (12-78) U/L Alkaline Phosphatase (46-116) IU/L Troponin I (0.000-0.056) ng/mL C-Reactive Protein (<=0.9) mg/dL Total Protein (6.4-8.2) g/dL Albumin (3.4-5.0) g/dL Specimen Type Urinvoid Urine Color Light yellow Urine Appearance Cloudy Urine pH 5.5 (5.0-9.0) Ur Specific [place] 1.010 (1.005-1.030) Urine Protein Negative (NEGATIVE) mg/dL Urine Glucose (UA) Negative (NEGATIVE) mg/dL Urine Ketones Negative (NEGATIVE) mg/dL Urine Occult Blood Small H (NEGATIVE) Urine Nitrite Negative (NEGATIVE) Urine Bilirubin Negative (NEGATIVE) Urine Urobilinogen 0.2 (0.2-1.0) E.U./dL Ur Leukocyte Esterase Large H (NEGATIVE) Urine RBC 0-5 /HPF Urine WBC >100 H /HPF Ur Epithelial Cells Rare /LPF Urine Bacteria Many H (NONE TO FEW) /HPF Meds: Medications Generic Name Dose Route Start Last Admin Trade Name Freq PRN Reason Stop Dose Admin Sodium Chloride 1,000 mls @ 125 mls/hr 11/08/20 11:00 11/08/20 11:01 Normal Saline IV 125 mls/hr ASDIRECTED RYAN Administration Sodium Chloride 10 ml 11/08/20 09:44 11/08/20 11:04 Sodium Chloride 0.9% 10 Ml Syringe FLUSH 10 ml ASDIRECTED PRN Administration Keep Vein Open - Re-Assessments/Exams Free Text/Narrative Re-Assessment/Exam: 11/08/20 13:38 His EKG is a sinus rhythm with a right bundle branch block. No previous EKG. Labs are redrawn to ensure that he was clearly hyponatremic. CBC with a white blood cell count of 5.5 a hemoglobin of 9.7 and a platelets of 296. CMP with a sodium of 124 which puts him in a moderate hyponatremia state. Normal potassium at 4.8 Creatinine 1.2 which is actually improved from his last in his [place] chart of 1.6, glucose 144 liver enzymes normal. Lactic acid normal at 0.6. CRP elevated at 10.5 as of note patient is known to have a urinary tract infection. Which she is currently on Keflex for. Analysis shows large amount of leuk esterase and greater than 100 you WBCs. Patient is in a moderate hyponatremic state although he is asymptomatic with this. This could be multifactorial as he has decreased his sodium intake at home as well as the large amount of water that he has been taking in the last week trying to treat his urinary tract infection. He received 250 mill bolus of normal saline and 125 an hour in the emergency department. He was watched closely over the next couple of hours. He relates that he feels actually a little bit better and the weakness in his legs have improved. His sodium improved up to 127 just a small amount of normal saline resuscitation in the emergency department. He really would like to go home and does not want to stay in the hospital tonight. I think that this is appropriate as he is asymp tomatic with his hyponatremia. Although I would like him to closely follow-up in the clinic tomorrow for recheck of his sodium. We discussed that it is important to have some salt in your diet but moderation is awan in this. Although I think that this is most likely due to the recent water intoxication that he has been doing with his urinary tract infection and this will probably write itself on its own. Discharge directions as below are explained to the patient he was comfortable with this plan and his questions are answered. Departure - Departure Time of Disposition: 13:30 Disposition: Home, Self-Care 01 Clinical Impression: Hyponatremia UTI (urinary tract infection) Qualifiers: Urinary tract infection type: site unspecified Hematuria presence: without hematuria Qualified Code(s): N39.0 - Urinary tract infection, site not specified - Discharge Information *PRESCRIPTION DRUG MONITORING PROGRAM REVIEWED*: Not Applicable *COPY OF PRESCRIPTION DRUG MONITORING REPORT IN PATIENT KARAN: Not Applicable Instructions: Hyponatremia, [id number], Urinary Tract Infection, Adult, E asy-to-Read Referrals: Melody Mack PA-C [Primary Care Provider] - Forms: ED Department Discharge Additional Instructions: Follow-up with Melody Mack at the [facility] tomorrow (Thursday) at 0900 for an ER follow-up and lab re-check. Continue your medications as previously. Keep your follow up with Urologist next week as planned. Some salt in your diet is needed. Return to the ED if new or worsening symptoms. Follow up with PCP tomorrow for recheck of your labs. Sepsis Event Note (ED) - Evaluation Sepsis Screening Result: No Definite Risk - Focused Exam Vital Signs: Vital Signs Temp Pulse Resp BP Pulse Ox 11/08/20 13:09 60 10 L 130/59 L 100 11/08/20 11:30 60 11 L 125/57 L 99 11/08/20 10:35 60 11 L 119/55 L 100 11/08/20 10:00 60 10 L 124/60 100 11/08/20 09:35 97 F 68 16 129/59 L 99 - My Orders Last 24 Hours: My Active Orders 11/08/20 09:44 EKG Documentation Completion [RC] STAT Peripheral IV Care [RC] . DIRECTED Sodium Chloride 0.9% [Saline Flush] 10 ml FLUSH ASDIRECTED PRN Blood Culture x2 Reflex Set [OM.PC] Stat Peripheral IV Insertion Adult [OM.PC] Stat 11/08/20 09:48 CULTURE BLOOD [BC] Stat 11/08/20 09:56 CULTURE BLOOD [BC] Stat 11/08/20 11:00 Sodium Chloride 0.9% [Normal Saline] 1,000 ml IV ASDIRECTED 11/08/20 11:35 CULTURE URINE [RM] Stat - Assessment/Plan Last 24 Hours: My Active Orders 11/08/20 09:44 EKG Documentation Completion [RC] STAT Peripheral IV Care [RC] . DIRECTED Sodium Chloride 0.9% [Saline Flush] 10 ml FLUSH ASDIRECTED PRN Blood Culture x2 Reflex Set [OM.PC] Stat Peripheral IV Insertion Adult [OM.PC] Stat 11/08/20 09:48 CULTURE BLOOD [BC] Stat 11/08/20 09:56 CULTURE BLOOD [BC] Stat 11/08/20 11:00 Sodium Chloride 0.9% [Normal Saline] 1,000 ml IV ASDIRECTED 11/08/20 11:35 CULTURE URINE [RM] Stat
--- NOTE | 2020-11-08 10:46 | PCM.EKG ---
#1 Interpretation EKG Date: 11/08/20 Time: 10:35 Rhythm: NSR Rate (Beats/Min): 60 Mabie: LAD-Left Mabie Deviation P-Wave: Present QRS: RBBB ST-T: Normal QT: Normal Comparison: NA - No Prior EKG
[2020-11-08] MEDS ORDERED: Sodium Chloride 0.9% 1,000 ML IV SCH (11:00)
[2020-11-08 13:10] LABS: CHLORIDE,CL 94 mmol/L (98-107); SODIUM,NA 127 mmol/L (136-145)
== END 2020-11-08 13:50 | disposition home or self-care (01) ==
LOC: LL.ED 09:31
DX: N39.0 Urinary tract infection, site not specified (principal); E87.1 Hypo-osmolality and hyponatremia; E11.319 Type 2 diabetes mellitus with unspecified diabetic retinopathy without macular edema; K21.9 Gastro-esophageal reflux disease without esophagitis; E78.00 Pure hypercholesterolemia, unspecified; I10 Essential (primary) hypertension; M19.90 Unspecified osteoarthritis, unspecified site; Z79.84 Long term (current) use of oral hypoglycemic drugs; Z88.8 Allergy status to other drugs, medicaments and biological substances; Z79.82 Long term (current) use of aspirin; Z79.899 Other long term (current) drug therapy
CPT/HCPCS: 36415; 80048; 80053; 81001; 83605; 84484; 85025; 86140; 87040; 87086; 87088; 87186; 99283-25; J7030

== ENCOUNTER 2023-08-27 09:36 | Day surgery (SDC) | payer MEDICARE, BC ==
[~2023-08-27 09:36] MED LIST: Midazolam 1 MG/ML 2 ML SDV ONE; Propofol 200 MG/20 ML SDV ONE
[2023-08-27] MEDS ORDERED: Sodium Chloride 0.9% 10 ML Syringe FLUSH PRN (10:00)
[2023-08-27] MEDS ORDERED: Lactated Ringers 1,000 ML IV SCH (10:00)
== END 2023-08-27 11:55 | disposition home or self-care (01) ==
LOC: LL.SDS 09:36
PROVIDERS: ATTEND Surgery
DX: Z12.11 Encounter for screening for malignant neoplasm of colon (principal); K57.30 Diverticulosis of large intestine without perforation or abscess without bleeding; E11.22 Type 2 diabetes mellitus with diabetic chronic kidney disease; I12.9 Hypertensive chronic kidney disease with stage 1 through stage 4 chronic kidney disease, or unspecified chronic kidney disease; N18.32 Chronic kidney disease, stage 3b; I44.2 Atrioventricular block, complete; E78.5 Hyperlipidemia, unspecified; K21.9 Gastro-esophageal reflux disease without esophagitis; Z79.4 Long term (current) use of insulin; Z79.84 Long term (current) use of oral hypoglycemic drugs; Z79.82 Long term (current) use of aspirin; Z79.899 Other long term (current) drug therapy
CPT/HCPCS: 82947; J2250; J2704; J7120

== ENCOUNTER 2025-01-19 07:41 | Day surgery (SDC) | payer MEDICARE, BC ==
[2025-01-19] MEDS: Lactated Ringers 1,000 ML IV SCH (07:51)
[2025-01-19] MEDS ORDERED: Propofol 200 MG/20 ML SDV ONE (07:59)
[2025-01-19] MEDS ORDERED: Sodium Chloride 0.9% 10 ML Syringe FLUSH PRN (08:00)
== END 2025-01-19 10:35 | disposition home or self-care (01) ==
LOC: LL.SDS 07:41
PROVIDERS: ATTEND Surgery
DX: K21.00 Gastro-esophageal reflux disease with esophagitis, without bleeding (principal); K22.70 Barrett's esophagus without dysplasia; K31.819 Angiodysplasia of stomach and duodenum without bleeding; E11.22 Type 2 diabetes mellitus with diabetic chronic kidney disease; I12.9 Hypertensive chronic kidney disease with stage 1 through stage 4 chronic kidney disease, or unspecified chronic kidney disease; N18.32 Chronic kidney disease, stage 3b; Z79.899 Other long term (current) drug therapy
CPT/HCPCS: 00731; 43239; 82947; J2704; J7120